=== PATIENT | female | born 1960 | race Hispanic/Latino ===

== ENCOUNTER 2016-06-10 13:55 | Emergency (ER) | payer MEDICARE, MEDICAID ==
[~2016-06-10 13:55] MED LIST: /ADVA50050; /ADVA50050 IN; /ADVA50050 INH; /BACIOPOI; /CIPR75TA OR; /HCTZ25TA PO; /LOR25TA PO; /PANT40TA; ACTOPLUS MET OR; ADV250INH INH; ADVAIR PO; ALBU17IN2 INH; ALDA25TA2 PO; ALLE25CA; ALLE25CA OR; AMBI10TA OR; AMBIEN PO; AMLO10TA OR; AMLO10TA PO; AMLO5TAB2 PO; ANEXSIA PO; ASPI81TA21 PO; ASPI81TA3 OR; ASPI81TAEC PO; ATARAX PO; ATEN100T OR; ATEN100T PO; ATEN50TA2 PO; ATIV1TAB10 PO; ATRO1SOL13; Ambien PO; Amlodipine Besylate PO; BACT800T OR; BACTROBAN TOP; BENA25CA2 PO; BENEDRYL PO; CALC1CAP31 PO; CALC500C16 PO; CATA0.2T PO; CEFT500T OR; CELE100C OR; CELE20TA PO; CELE40TA PO; CLEO150C PO; CLEO300C2 PO; CLIN150C PO; CLON0.2T PO; CLONI1TA PO; CLOTPOW TOP; COLA100C PO; COLA100C2 OR; COUM1TAB17 PO; COZA50TA PO; DARB100SYR IV; DEMA20TA6 PO; DIAZ5TAB OR; DICL13PA TD; DILA2TAB PO; DIOV160T2 PO; DIOV160T5; DIOV80TA OR; DOC-Q-LACE PO; DOCU10ELUD PO; DRIS50002 PO; DULC5TAB PO; FERR325T3 PO; FLAG500T PO; FLEXERIL PO; FLUTISP; FURO1TAB15 PO; GEMF600T OR; GLUC1000; GLUC500T; HUMULIN 70-30; HYDR-4267 PO; HYDR10T PO; HYDR10TAB PO; HYDR2.5C EX; HYDR25TA6 OR; IBUP800T; INSUDET SC; INSUH10VL SC; INSUHUMDS SC; INSULADS SC; INSULANT; INSULANT SC; INSULIN; INSULIN 70/30; Insulin SC; K-LO20PO; K-TA10TA2 PO; KEPP250T5 PO; KLOR1TAB77 PO; LASI80TA PO; LEVAQUIN PO; LEVO50TA5 PO; LIDO5DIS TD; LIDO5DIS36 TD; LIDO5TD TD; LIPI20TA OR; LIPI20TA PO; LISI10TA4 PO; LORT5TAB PO; LOSA100T36 PO; LOSA50TA20 PO; LOTR1CRE TOP; LYRI100C10 PO; LYRI75CA OR; LYRI75CA PO; MAALOX PD; MAG400TA PO; MAGN400C PO; MAGN400T2 PO; MAGN400T5 PO; MAGN500C PO; MAGN500T5 PO; METO25TA2; MICR10CA PO; MILKSUS PO; MONISTAT; MONT10TA2 PO; MORP15TASA PO; MORPHINE IR PO; MS C15TA5 OR; MS C30TA PO; MS CONTIN PO; MSIR PO; MSIR30TA PO; MYCOSTATIN POWDER TOP; NEUR100C PO; NEUR300C OR; NICO14DI20 TD; NICO14DI3 TD; NICO14PA TD; NICO21DI4 TD; NICO21DI5 TD; NICO21PAT TD; NOVO70IN SC; NOVOINJ SC; NOVOINJ2 SC; NOVOLOG100 MG/ML SC; NYST10PW TOP; ONDA1TAB15 PO; OXYC-299 PO; OXYC-517 PO; OXYC10TA12 PO; OXYC10TA56 PO; OXYCO5TA PO; PEPC1TAB2 PO; PERCOCET PO; PLAV75TA2 OR; POTA10CA PO; POTA20TA PO; PREG50CA PO; PRIN10TA PO; REGL10TA6 PO; REGL5TAB2 PO; RENV2TAB PO; RIFA300C3 OR; SENN8.6T5 OR; SENO8.6T10 PO; SIMV20TA2 PO; SING10TA32 PO; SINGULAIR; SINGULAIR OR; SINGULAR; SKEL800T5; SYNT50TA PO; TIZA4CAP3 PO; TOPI50TA; TRAM50TA2 OR; TRAM50TA2 PO; TYLE325T5 PO; TYLE650T30 PO; TYLENOL #3; ULTR50TA PO; ULTRTA OR; VICO5TAB OR; VICODINES TAB OR; VITA100066 PO; VITA50003 PO; VITMTA PO; VOLT1GEL EXT; XANA0.25; XANA0.25 OR; XANA0.5T PO; XARE10TA PO; XARE15TA PO; XARE20TA PO; ZANA2CAP PO; ZEST1TAB9 PO; ZOLO100T OR; ZOLO50TA PO; ZOLP-189 PO; ZOST0.25 EX; [UNRECOGNIZED DRUG - CODE] IV; [UNRECOGNIZED DRUG - OTHER]; anexsia PO; flexeril OR; heparin SC; januvia OR; morphine sulfate IV; norco PO; toradol PO; vancomycin IV; zofran IV
[2016-06-10] MEDS ORDERED: ASPIRIN 81 MG CHEW TABLET As Ordered ONE (14:41)
[2016-06-10 15:08] LABS: BASO # 0.1 K/mm3 (0.0-0.2); BASO % 0.9 % (0.0-1.0); EOS % 0.6 % (0.0-3.0); LARGE UNSTAINED CELL % 0.4 % (0.0-4.0); LYMPH # 0.5 K/mm3 (1.5-4.5); LYMPH % 5.9 % (24.0-44.0); MEAN CORPUSCULAR HEMOGLOBIN 27.2 pg (27.0-33.0); MEAN CORPUSCULAR HGB CONC 32.3 g/dl (32.0-36.5); MEAN CORPUSCULAR VOLUME 84.2 fl (80.0-96.0); MONO # 0.3 K/mm3 (0.0-0.8); MONO % 3.3 % (0.0-5.0); NEUTROPHILS # 7.7 K/mm3 (1.8-7.7); PLATELET COUNT, AUTOMATED 170 k/mm3 (150-450); RED CELL DISTRIBUTION WIDTH 15.5 % (11.5-14.5); WHITE BLOOD COUNT 8.6 K/mm3 (4.0-10.0)
[2016-06-10 15:14] LABS: INR 0.89
[2016-06-10] MEDS ORDERED: oxyCODONE 5MG TAB As Ordered ONE ×2 (15:14→21:54)
--- NOTE | 2016-06-10 15:16 | REP ---
Chest one-view HISTORY: Chest pain Comparison: 05/01/2015 The lungs are clear. The heart is normal in size. The pulmonary vasculature is normal in appearance. Impression: No acute disease. Signed by Agustin Alfaro MD 06/10/2016 03:08 P
[2016-06-10 15:44] LABS: ANION GAP 8 MEQ/L (8-16); BLOOD UREA NITROGEN 13 MG/DL (7-18); CALCIUM LEVEL 9.5 MG/DL (8.5-10.1); CARBON DIOXIDE LEVEL 31 MEQ/L (21-32); CHLORIDE LEVEL 99 MEQ/L (98-107); CREATININE FOR GFR 2.99 MG/DL (0.55-1.02); GLOMERULAR FILTRATION RATE 17.2 (>51); GLUCOSE, FASTING 264 MG/DL (70-105); POTASSIUM SERUM 3.3 MEQ/L (3.5-5.1); SODIUM LEVEL 138 MEQ/L (136-145)
[2016-06-10] MEDS ORDERED: ATENOLOL 25 MG TAB As Ordered ONE (20:38)
[2016-06-10] MEDS ORDERED: cloNIDine 0.2 MG TAB As Ordered ONE (20:38)
--- NOTE | 2016-06-10 23:55 | EDDOCDS ---
Physician Documentation [facility] Name: Tamie Carter Age: 55 yrs Sex: Female : 1960 Arrival Date: 06/10/2016 Time: 13:55 Bed OBSERVATION Private MD: Disposition: 06/10 21:52 Critical Care: Critical care not applicable. le Disposition: 06/10/16 21:44 Discharged to Home/Self Care. Impression: Other chest pain - Low probability acute coronary syndrome or pulmonary embolism, Chronic pain syndrome. - Condition is Stable. - Discharge Instructions: Nonspecific Chest Pain, Chronic Pain. - Medication Reconciliation, Local Pharmacy Hours form. - Follow up: Jean Carlos Maurice; When: Call to arrange an appointment; Reason: Recheck today's complaints, Continuance of care. Follow up: Lizzy Aguilar MD; When: Call to arrange an appointment; Reason: Recheck today's complaints, Continuance of care. - Problem is an acute exacerbation. - Symptoms have improved. - Notes: Use your usual pain medications, previously prescribed, for pain Keep your next scheduled dialysis appointment Return to the ED for any further concerns Historical: - Allergies: ACETAMINOPHEN; Erythromycin; NSAIDS; peanuts; PENICILLINS; Proventil HFA; Morphine; - Home Meds: 1. Advair Diskus 250-50 mcg/dose Inhl dsdv 1 puff 2 times per day 2. aspirin 81 mg Oral tab 1 tab once daily 3. atenolol 50 mg Oral tab 50mg at bedtime on dialysis days. 50mg BID on non dialysis days 4. Bactroban 2 % Topical crea 3 times per day 5. citalopram 40 mg Oral tab 1 tab once daily 6. clonidine HCl 0.2 mg oral tab 3 times per day 7. losartan 100 mg oral tab 1 tab once daily 8. Drisdol 50,000 unit Oral cap 1 cap once wkly 9. insulin lispro 100 unit/mL subcutaneous crtg 16 units nightly 10. levetiracetam 500 mg oral tab 1 tab 2 times per day 11. levothyroxine 50 mcg Oral tab 1 tab once daily 12. pregabalin 75 mg Oral cap 1 cap 2 times per day 13. magnesium oxide 400 mg oral tab twice a day 14. Multiple Vitamins oral tab daily 15. Nicoderm CQ 21 mg/24 hr transdermal pt24 1 patch once daily 16. Zofran (as hydrochloride) 4 mg Oral tab every 6 hours 17. Renvela 800 mg oral tab 1 tab 3 times per day 18. oxycodone 15 mg Oral TR12 0.5 tab every 6 hours 19. senna 8.6 mg oral cap 2 caps BID 20. Sensipar 30 mg oral tab 1 tab once daily 21. simvastatin 20 mg Oral tab 1 tab once daily 22. Singulair 10 mg Oral tab 1 tab once daily 23. Toujeo SoloStar 300 unit/mL (1.5 mL) subcutaneous inpn 50 units at HS - PMHx: Asthma; back pain; Bipolar disorder; CAD; rn chronic brodie renal failure with dialysis; Diabetes - IDDM: uncontrolled; Diabetic Neuropathy; Hypercholesterolemia; Hypertension; Hypothyroidism; Myocardial infarction; PVD; retinopathy; Seizures; - PSHx: muliple toe amputations; Tonsillectomy; ; Cholecystectomy; Angioplasty; femoral stents; transmetatarsal amputation; bypass; toe amputsations left foot; - Family history: Not pertinent. - Social history: Smoking status: Patient uses tobacco products, current every day smoker. No barriers to communication noted, The patient speaks fluent Indonesian, Speaks appropriately for age. - : The pt / caregiver states he / she is not on anticoagulants. Home medication list is obtained from the patient. - Exposure Risk Screening:: None identified. Vital Signs: 14:22 BP 205 / 91 (auto/); lf1 14:22 Pulse 78 MON; lf1 14:26 BP 205 / 91; Pulse 71; Resp 16; Temp 97.7; Pulse Ox 100% on R/A; Weight 84.82 kg / 187 jrd lbs (R); Height 5 ft. 5 in. (165.10 cm) (R); Pain 10/10; 14:33 BP 217 / 93 (auto/); lf1 14:33 Pulse 78 MON; lf1 14:35 BP 168 / 87 RA Supine (auto/reg); Pulse 74; jrd 15:17 BP 192 / 81 (auto/); lf1 15:19 Pulse 82 MON; Resp 16; Pulse Ox 98% ; Pain 10/10; lf1 17:51 BP 170 / 75 (auto/); jo3 17:51 Pulse 78 MON; jo3 19:04 BP 205 / 84 (auto/); nn1 19:04 Pulse 84 MON; nn1 19:04 Resp 18; nn1 19:15 BP 223 / 100 (auto/); nn1 19:15 Pulse 84 MON; Pulse Ox 95% ; nn1 19:53 BP 226 / 102 (auto/); nn1 19:55 Pulse 78 MON; Pulse Ox 96% ; nn1 21:51 Pulse 78; Resp 20; Temp 97.8(TE); radha 23:49 BP 146 / 84 (man/); Pulse 76; Resp 18; Temp 97.6; Pulse Ox 96% on R/A; Pain 10/10; nn1 14:26 Body Mass Index 31.12 (84.82 kg, 165.10 cm) jrd MDM: 14:04 ECG WITH READING ER PHYS+CARDIAG ordered. EDMS 14:35 Aspirin Chewable Tablet 324 mg PO once ordered. le 14:35 Home Energy Consultant/Pulse Ox/q 30 min VS ordered. le 14:35 IV Saline Lock ordered. le 14:35 Rhythm Strip to chart ordered. le 14:35 Undress patient appropriately for examination ordered. le 14:35 B-Type Natiuretic Peptide Ordered. EDMS 14:35 Basic Metabolic Profile Ordered. EDMS 14:35 CBC with Diff Ordered. EDMS 14:35 Cardiac Injury Profile Ordered. EDMS 14:35 D-Dimer Quant Ordered. EDMS 14:35 Partial Thromboplastin Time Ordered. EDMS 14:35 Prothrombin Time Profile\E\INR Ordered. EDMS 14:35 Troponin Ordered. EDMS 14:35 portable chest Ordered. EDMS 14:55 oxyCODONE 5 mg PO once ordered. le 15:46 B-Type Natiuretic Peptide Reviewed. le 15:46 CBC with Diff Reviewed. le 15:46 D-Dimer Quant Reviewed. le 15:46 Partial Thromboplastin Time Reviewed. le 15:46 Prothrombin Time Profile\E\INR Reviewed. le 15:46 portable chest Reviewed. le 16:45 Basic Metabolic Profile Reviewed. le 16:45 Cardiac Injury Profile Reviewed. le 16:45 Troponin Reviewed. le 16:47 Redraw CIP &Troponin (put time in details section) ordered. le 16:47 Repeat EKG (put time details section) ordered. le 16:50 RENAL DIET+DIET ordered. EDMS 17:24 Redraw CIP &Troponin (put time in details section) complete. deg 17:24 Repeat EKG (put time details section) complete. deg 17:25 CARDIAC MARKER PANEL Ordered. EDMS 17:26 ECG WITH READING ER PHYS ordered. EDMS 17:56 [facility] Payment Agreement was scanned into [employer] and attached to record. gjb 17:57 Financial registration complete. gjb 20:28 CARDIAC MARKER PANEL Reviewed. le 20:32 cloNIDine 0.2 mg PO once ordered. le 20:34 Atenolol 100 mg PO once ordered. le 20:45 Misc. Nursing Order ordered. le 21:50 oxyCODONE 5 mg PO once; Give immediately preceding DC ordered. le Administered Medications: 14:55 Drug: Aspirin 324 mg [aspirin 81 mg chewable tablet (4 tabs)] Route: PO; jo3 15:25 Drug: oxyCODONE 5 mg [oxycodone 5 mg tablet (1 tabs)] Route: PO; lf1 20:34 CANCELLED (Other Intervention Used): Atenolol 50 mg PO once le 20:44 Drug: cloNIDine 0.2 mg [clonidine HCl 0.2 mg tablet (1 tabs)] Route: PO; nn1 20:44 Drug: Atenolol 100 mg [atenolol 25 mg tablet (4 tabs)] Route: PO; nn1 23:49 Drug: oxyCODONE 5 mg [oxycodone 5 mg tablet (1 tabs)] Route: PO; nn1 Signatures: Dispatcher [employer] EDSheri Diaz, Business Editor Unit deg Gerri Artis RN RN srm Helmerci, Jennifer, RN RN jo3 Westcott, Lisa, FNP FNP le Nunez, Nikkole, RN RN nn1 Pam Mark Lisa RN lf1 The chart was reviewed and I authenticate all verbal orders and agree with the evaluation and treatment provided.Corrections: (The following items were deleted from the chart) 20:34 20:32 Atenolol 50 mg PO once ordered. le le Attachments: 17:56 [facility] Payment Agreement gjb MTDD
--- NOTE | 2016-06-10 23:55 | EDDOCDS ---
Nurse's Notes [facility] Name: Tamie Carter Age: 55 yrs Sex: Female : 1960 Arrival Date: 06/10/2016 Time: 13:55 Bed OBSERVATION Private MD: Diagnosis: Other chest pain-Low probability acute coronary syndrome or pulmonary embolism;Chronic pain syndrome Presentation: 06/10 14:04 Presenting complaint: Patient states: chest pain started while at renal care (1300) ) srm during dialysis. pain does not radiate. has had a cough. nausea started last night. pain all over her body. Adult Sepsis Screening: The patient does not have new or worsening altered mentation. Patient's respiratory rate is less than 22. Systolic blood pressure is greater than 100. Patient has a qSOFA score of 0- Negative Sepsis Screen. Suicide/Homicide risk assessment- the patient denies having any suicidal and/or homicidal ideations and does not present with any other emotional, behavioral or mental health complaints. Status: Patient is not a rehabilitation services director or dependent. Transition of care: patient was received from renal care. 14:04 Acuity: JOSE ALFREDO Level 2 [facility] 14:04 Method Of Arrival: Ambulance [facility] Triage Assessment: 14:45 General: Appears in no apparent distress, Behavior is cooperative, drowsy. HIV jo3 screening NA for this visit Offered previously. The patient is triaged at the bedside. See Assessment in Nurses Notes section of ED record. Neurological: Level of Consciousness is awake, Oriented to person, place, time. Cardiovascular: Capillary refill is brisk Heart tones S1 S2 Rhythm is sinus rhythm No ectopy. Chest pain When asked about chest pain pt states, "I have pain all over" . Respiratory: Airway is patent Respiratory effort is even, unlabored. Derm: Skin is pink, warm & dry. Historical: - Allergies: ACETAMINOPHEN; Erythromycin; NSAIDS; peanuts; PENICILLINS; Proventil HFA; Morphine; - Home Meds: 1. Advair Diskus 250-50 mcg/dose Inhl dsdv 1 puff 2 times per day 2. aspirin 81 mg Oral tab 1 tab once daily 3. atenolol 50 mg Oral tab 50mg at bedtime on dialysis days. 50mg BID on non dialysis days 4. Bactroban 2 % Topical crea 3 times per day 5. citalopram 40 mg Oral tab 1 tab once daily 6. clonidine HCl 0.2 mg oral tab 3 times per day 7. losartan 100 mg oral tab 1 tab once daily 8. Drisdol 50,000 unit Oral cap 1 cap once wkly 9. insulin lispro 100 unit/mL subcutaneous crtg 16 units nightly 10. levetiracetam 500 mg oral tab 1 tab 2 times per day 11. levothyroxine 50 mcg Oral tab 1 tab once daily 12. pregabalin 75 mg Oral cap 1 cap 2 times per day 13. magnesium oxide 400 mg oral tab twice a day 14. Multiple Vitamins oral tab daily 15. Nicoderm CQ 21 mg/24 hr transdermal pt24 1 patch once daily 16. Zofran (as hydrochloride) 4 mg Oral tab every 6 hours 17. Renvela 800 mg oral tab 1 tab 3 times per day 18. oxycodone 15 mg Oral TR12 0.5 tab every 6 hours 19. senna 8.6 mg oral cap 2 caps BID 20. Sensipar 30 mg oral tab 1 tab once daily 21. simvastatin 20 mg Oral tab 1 tab once daily 22. Singulair 10 mg Oral tab 1 tab once daily 23. 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 - Social history: Smoking status: Patient uses tobacco products, current every day smoker. No barriers to communication noted, The patient speaks fluent Khmer, Speaks appropriately for age. - : The pt / caregiver states he / she is not on anticoagulants. Home medication list is obtained from the patient. - Exposure Risk Screening:: None identified. Screenin:56 Infection Control. deg 23:51 Screening information is obtained from prior medical records. Fall risk: At risk due to nn1 immobility, injury. Fall risk: At risk due to Pain medications . Assistance ADL's: requires no assistance with activities of daily living. Abuse/DV Screen: The patient / caregiver reports he/she is: not in a situation that causes fear, pain or injury. Nutritional screening: No deficits noted. Advance Directives: Currently, there is a health care proxy, Kiara Bernard RN . home support is adequate. Assessment: 15:26 General: Appears obese, Behavior is restless. Pain: Location: "all over" Pain currently lf1 is 10 out of 10 on a pain scale. 16:30 General: Appears in no apparent distress, to be sleeping. Behavior is quiet. jo3 Neurological: No deficits noted. Cardiovascular: No deficits noted. Rhythm is sinus rhythm No ectopy. Respiratory: Airway is patent Respiratory effort is even, unlabored. Derm: Skin is pink, warm & dry. 17:10 Reassessment: Pt appears asleep and comfortable on stretcher . jo3 17:30 Reassessment: Pt daughter in to visit awaking pt. Pt very drowsy on stretcher but jo3 states that her pain is 10/10 in her head. Provider notfied.. 18:05 Reassessment: Patient appears in no apparent distress at this time. Appears asleep on jo3 stretcher at this time. Awaiting results. . 18:20 Reassessment: Continues to sleep on stretcher at this time. Awaiting cardiac marker jo3 labs at 1999. 19:20 Reassessment: Pt awake and screaming in room that she "can't move". Refusing to even jo3 move arms to assist this senior writer and other staff in repositioning her. Asking to speak to provider. Provider notified. No significant changes noted. Rhythm is sinus on monitor. respirations unlabored and regular . 19:59 General: General: Patient calm at this time, patient reports she wants to go home. nn1 Blood drawn for repeat lab work, patient on NIBP monitor due to high blood pressure. . 20:44 General: Patient medicated for high BP. Patient made comfortable, given warm blanket. . nn1 Respiratory: Airway is patent Respiratory effort is even, unlabored, Respiratory pattern is regular, symmetrical. Derm: Skin is pink, warm & dry. 22:30 General: Appears in no apparent distress, Patient awaiting ambulance at this time. nn1 Holding ordered pain medication per providers orders. Patient in no distress at this time, IV discontinued. . 23:53 General: Appears in no apparent distress, Behavior is appropriate for age, cooperative, nn1 Patient medicated for pain prior to discharge.. Neurological: No deficits noted. Respiratory: Airway is patent Respiratory effort is even, unlabored, Respiratory pattern is regular, symmetrical. Derm: Skin is pink, warm & dry. Vital Signs: 14:22 BP 205 / 91 (auto/); lf1 14:22 Pulse 78 MON; lf1 14:26 BP 205 / 91; Pulse 71; Resp 16; Temp 97.7; Pulse Ox 100% on R/A; Weight 84.82 kg (R); jrd Height 5 ft. 5 in. (165.10 cm) (R); Pain 10/10; 14:33 BP 217 / 93 (auto/); lf1 14:33 Pulse 78 MON; lf1 14:35 BP 168 / 87 RA Supine (auto/reg); Pulse 74; jrd 15:17 BP 192 / 81 (auto/); lf1 15:19 Pulse 82 MON; Resp 16; Pulse Ox 98% ; Pain 10/10; lf1 17:51 BP 170 / 75 (auto/); jo3 17:51 Pulse 78 MON; jo3 19:04 BP 205 / 84 (auto/); nn1 19:04 Pulse 84 MON; nn1 19:04 Resp 18; nn1 19:15 BP 223 / 100 (auto/); nn1 19:15 Pulse 84 MON; Pulse Ox 95% ; nn1 19:53 BP 226 / 102 (auto/); nn1 19:55 Pulse 78 MON; Pulse Ox 96% ; nn1 21:51 Pulse 78; Resp 20; Temp 97.8(TE); radha 23:49 BP 146 / 84 (man/); Pulse 76; Resp 18; Temp 97.6; Pulse Ox 96% on R/A; Pain 10/10; nn1 14:26 Body Mass Index 31.12 (84.82 kg, 165.10 cm) [facility] Vitals: 14:45 Log In Time N/A - ambulance arrival. jo3 ED Course: 13:56 Patient visited by Sheri Neal, Floor Tech. deg 13:56 Patient moved to Waiting deg 14:02 Patient moved to [facility] 14:06 Triage Initiated srm 14:08 Tatiana Quinones FNP is PHCP. le 14:13 EKG done. (by ED staff). Reviewed by Tatiana REYNOLDS. jrd 14:24 Patient visited by Tatiana Quinones FNP. le 14:24 Patient visited by Tatiana Quinones FNP. le 14:26 Pt greeted and oriented to ED. Patient advised of names of staff involved in care, jrd location of call ferreira, wait times and NPO status. Patient has correct armband on for positive identification. Placed in gown. Bed in low position. Call light in reach. Side rails up X2. Warm blanket given. quality assurance monitor on. Pulse ox on. NIBP on. 14:27 Patient visited by Moises Lua PCA. jrd 14:35 Patient visited by Moises Lua PCA. jrd 15:27 Patient visited by Tatiana Osman RN. lf1 15:30 portable chest Returned. EDMS 16:21 Patient visited by Erika Serrano PCA. ct3 16:46 Patient moved to OBSERVATION le 17:56 [facility] Payment Agreement was scanned into GIGAS and attached to record. gjb 18:32 Patient visited by Tamika Magaña,CHER. jo3 19:05 Patient visited by Tamika Magaña,CHER. jo3 19:34 Patient visited by Tamika Magaña,CHER. jo3 19:57 CARDIAC MARKER PANEL Sent. nn1 20:08 EKG done. (by ED staff). Reviewed by Tatiana REYNOLDS. jmv 20:09 Patient visited by Guerrero Mckenzie PCA. jmv 21:44 Jean Carlos Maurice is Referral Physician. le 21:50 Lizzy Aguilar MD is Referral Physician. le 21:51 Cleaned of incontinence. Linen changed. radha 22:33 Discontinued IV lock intact, bleeding controlled, pressure dressing applied, No nn1 redness/swelling at site. 20G right ac. 23:52 No procedures done that require assistance. nn1 23:53 The patient / caregiver is instructed regarding the plan of care and ED course. nn1 Administered Medications: 14:55 Drug: Aspirin 324 mg [aspirin 81 mg chewable tablet (4 tabs)] Route: PO; jo3 15:25 Drug: oxyCODONE 5 mg [oxycodone 5 mg tablet (1 tabs)] Route: PO; lf1 20:34 CANCELLED (Other Intervention Used): Atenolol 50 mg PO once le 20:44 Drug: cloNIDine 0.2 mg [clonidine HCl 0.2 mg tablet (1 tabs)] Route: PO; nn1 20:44 Drug: Atenolol 100 mg [atenolol 25 mg tablet (4 tabs)] Route: PO; nn1 23:49 Drug: oxyCODONE 5 mg [oxycodone 5 mg tablet (1 tabs)] Route: PO; nn1 Order Results: Lab Order: B-Type Natiuretic Peptide; SPEC'M 06/10/16 14:55 Test: BRAIN NATRIURETIC PEPTIDE; Value: 365; Range: <100; Abnormal: Above high normal; Units: PG/ML; Status: F Lab Order: Basic Metabolic Profile; SPEC'M 06/10/16 14:55 Test: GLUCOSE, FASTING; Value: 264; Range: 70-105; Abnormal: Above high normal; Units: MG/DL; Status: F Test: BLOOD UREA NITROGEN; Value: 13; Range: 7-18; Units: MG/DL; Status: F Test: CREATININE FOR GFR; Value: 2.99; Range: 0.55-1.02; Abnormal: Above high normal; Units: MG/DL; Status: F Test: GLOMERULAR FILTRATION RATE; Value: 17.2; Range: >51; Abnormal: Below low normal; Status: F Test: SODIUM LEVEL; Value: 138; Range: 136-145; Units: MEQ/L; Status: F Test: POTASSIUM SERUM; Value: 3.3; Range: 3.5-5.1; Abnormal: Below low normal; Units: MEQ/L; Status: F Test: CHLORIDE LEVEL; Value: 99; Range: 98-107; Units: MEQ/L; Status: F Test: CARBON DIOXIDE LEVEL; Value: 31; Range: 21-32; Units: MEQ/L; Status: F Test: ANION GAP; Value: 8; Range: 8-16; Units: MEQ/L; Status: F Test: CALCIUM LEVEL; Value: 9.5; Range: 8.5-10.1; Units: MG/DL; Status: F Test Note: ; Units are mL/min/1.73 m2 Chronic Kidney Disease Staging per NKF: Stage I & II GFR >=60 Normal to Mildly Decreased Stage III GFR 30-59 Moderately Decreased Stage IV GFR 15-29 Severely Decreased Stage V GFR <15 Very Little GFR Left ESRD GFR <15 on CYCLE COUNTER Lab Order: CBC with Diff; SPEC'M 06/10/16 14:55 Test: WHITE BLOOD COUNT; Value: 8.6; Range: 4.0-10.0; Units: K/mm3; Status: F Test: RED BLOOD COUNT; Value: 5.81; Range: 4.00-5.40; Abnormal: Above high normal; Units: M/mm3; Status: F Test: HEMOGLOBIN; Value: 15.8; Range: 12.0-16.0; Units: g/dl; Status: F Test: HEMATOCRIT; Value: 48.9; Range: 36.0-47.0; Abnormal: Above high normal; Units: %; Status: F Test: MEAN CORPUSCULAR VOLUME; Value: 84.2; Range: 80.0-96.0; Units: fl; Status: F Test: MEAN CORPUSCULAR HEMOGLOBIN; Value: 27.2; Range: 27.0-33.0; Units: pg; Status: F Test: MEAN CORPUSCULAR HGB CONC; Value: 32.3; Range: 32.0-36.5; Units: g/dl; Status: F Test: RED CELL DISTRIBUTION WIDTH; Value: 15.5; Range: 11.5-14.5; Abnormal: Above high normal; Units: %; Status: F Test: PLATELET COUNT, AUTOMATED; Value: 170; Range: 150-450; Units: k/mm3; Status: F Test: NEUTROPHILS %; Value: 89.0; Range: 36.0-66.0; Abnormal: Above high normal; Units: %; Status: F Test: LYMPH %; Value: 5.9; Range: 24.0-44.0; Abnormal: Below low normal; Units: %; Status: F Test: MONO %; Value: 3.3; Range: 0.0-5.0; Units: %; Status: F Test: EOS %; Value: 0.6; Range: 0.0-3.0; Units: %; Status: F Test: BASO %; Value: 0.9; Range: 0.0-1.0; Units: %; Status: F Test: LARGE UNSTAINED CELL %; Value: 0.4; Range: 0.0-4.0; Units: %; Status: F Test: NEUTROPHILS #; Value: 7.7; Range: 1.8-7.7; Units: K/mm3; Status: F Test: LYMPH #; Value: 0.5; Range: 1.5-4.5; Abnormal: Below low normal; Units: K/mm3; Status: F Test: MONO #; Value: 0.3; Range: 0.0-0.8; Units: K/mm3; Status: F Test: EOS #; Value: 0.0; Range: 0.0-0.50; Units: K/mm3; Status: F Test: BASO #; Value: 0.1; Range: 0.0-0.2; Units: K/mm3; Status: F Test: LARGE UNSTAINED CELL #; Value: 0.0; Range: 0.0-0.4; Units: K/mm3; Status: F Lab Order: Cardiac Injury Profile; SPEC'M 06/10/16 14:55 Test: CPK CREATINE PHOSPHOKINASE; Value: 31; Range: 26-192; Units: U/L; Status: F Test: CK-MB VALUE MASS; Value: 2.6; Range: 0.0-3.6; Units: NG/ML; Status: F Test: MB/CK RELATIVE INDEX; Value: 8.38; Range: < OR =4; Abnormal: Above high normal; Status: F Test Note: ; DIAGNOSIS CRITERIA MMB ng/ml Relative Index (RI) NON-AMI < or = 5 N/A ANDRE ZONE > 5 < or = 4 AMI > 5 > 4 Lab Order: D-Dimer Quant; SPEC'M 06/10/16 14:55 Test: D-DIMER QUANT; Value: 513.1; Range: <500; Abnormal: Above high normal; Units: ng/ml; Status: F Lab Order: Partial Thromboplastin Time; SPEC'M 06/10/16 14:55 Test: PARTIAL THROMBOPLASTIN TIME; Value: 26.2; Range: 26.6-37.1; Abnormal: Below low normal; Units: SECONDS; Status: F Lab Order: Prothrombin Time Profile\\E\\INR; SPEC'M 06/10/16 14:55 Test: PROTHROMBIN TIME; Value: 12.2; Range: 12.3-14.5; Abnormal: Below low normal; Units: SECONDS; Status: F Test: INR; Value: 0.89; Status: F Test Note: ; THERAPUTIC HUMAN INR VALUES INDICATIONS NORMAL RANGES PROPHYLAXIS/TREATMENT OF: VENOUS THROMBOSIS 2.0-3.0 PULMONARY EMBOLISM 2.0-3.0 PREVENTION OF SYSTEMIC EMBOLISM FROM: TISSUE HEART VALVES 2.0-3.0 ACUTE MYOCARDIAL INFARCTION 2.0-3.0 VALVULAR HEART DISEASE 2.0-3.0 ATRIAL FIBRILLATION 2.0-3.0 MECHANICAL VALVES(HIGH RISK) 2.5-3.5 RECURRENT MYOCARDIAL INFARCTION 2.5-3.5 Lab Order: Troponin; [facility]' 06/10/16 14:55 Test: TROPONIN I; Value: < 0.02; Range: < 0.10; Units: NG/ML; Status: F Test Note: ; Troponin I Reference Interval for Vertishear LOCI: 99th Percentile= 0.00-0.045 ng/ml Risk Stratification: <= 0.10 ng/ml Decreased Risk for Adverse Clinical Events. 0.10-1.50 ng/ml Increased Risk for Adverse Clinical Events. Evaluation of additional criterion and/or repeat testing in 2-6 hours is suggested to rule out myocardial damage. >= 1.50 ng/ml Indicative of Myocardial Injury. Lab Order: CARDIAC MARKER PANEL; [facility]' 06/10/16 19:54 Test: CPK CREATINE PHOSPHOKINASE; Value: 22; Range: 26-192; Abnormal: Below low normal; Units: U/L; Status: F Test: CK-MB VALUE MASS; Value: 1.7; Range: 0.0-3.6; Units: NG/ML; Status: F Test: MB/CK RELATIVE INDEX; Value: 7.72; Range: < OR =4; Abnormal: Above high normal; Status: F Test: TROPONIN I; Value: < 0.02; Range: < 0.10; Units: NG/ML; Status: F Test Note: ; DIAGNOSIS CRITERIA MMB ng/ml Relative Index (RI) NON-AMI < or = 5 N/A ANDRE ZONE > 5 < or = 4 AMI > 5 > 4 Radiology Order: portable chest Test: portable chest REASON FOR EXAMINATION: Chest Pain; Chest one-view; ; HISTORY: Chest pain; ; Comparison: 05/01/2015; ; The lungs are clear. The heart is normal in size. The pulmonary vasculature is; normal in appearance.; ; Impression: No acute disease.; ; ; Signed by; Agustin Alfaro MD 06/10/2016 03:08 P; Outcome: 21:44 Discharge ordered by Provider. le 23:49 Discharge Assessment: Patient awake, alert and oriented x 3. No cognitive and/or nn1 functional deficits noted. Patient verbalized understanding of disposition instructions. patient administered narcotics - yes. Pt provided with safe discharge. The following High Risk Discharge criteria are identified: None. Discharged to home via ambulance. Condition: stable. Property :Personal belongings accompany Pt. 23:50 No special radiology studies were completed. nn1 23:54 Patient left the ED. nn1 Signatures: Dispatcher [employer] EDMS Sheri Neal, Floor Tech Unit deg Gerri Artis, RN CHER [facility] Tamika Magaña RN RN jo3 Ford, Lisa,RN RN lf1 Tatiana Quinones, ORIENTAL MEDICINE PRACTITIONER ORIENTAL MEDICINE PRACTITIONER Tracy Larkin, HEADEND TECHNICIAN HEADEND TECHNICIAN radha Erika Serrano, HEADEND TECHNICIAN HEADEND TECHNICIAN ct3 Moises Lua, HEADEND TECHNICIAN HEADEND TECHNICIAN Nadira Galeano RN RN nn1 Pam Mark Jose, HEADEND TECHNICIAN HEADEND TECHNICIAN jmv Corrections: (The following items were deleted from the chart) 20:03 19:59 General: nn1 nn1 23:50 23:49 BP 146 / 84; Pulse 76bpm; Resp 18bpm; Pulse Ox 96% RA; Temp 97.6F; Pain 10/10; nn1nn1 MTDD
--- NOTE | 2016-06-11 07:25 | ECGEPIP ---
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
--- NOTE | 2016-06-11 07:35 | ECGEPIP ---
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
[2016-06-11] MEDS ORDERED: ADV250INH INH (13:15)
[2016-06-11] MEDS ORDERED: ASPI1TAB PO (13:16)
[2016-06-11] MEDS ORDERED: ATEN50TA2 PO ×2 (13:16→13:17)
[2016-06-11] MEDS ORDERED: CLON0.2T PO ×2 (13:23)
[2016-06-11] MEDS ORDERED: CITA40TA4 PO (13:23)
[2016-06-11] MEDS ORDERED: BENA25CA4 PO (13:23)
[2016-06-11] MEDS ORDERED: INSUHUMDS SC (13:28)
[2016-06-11] MEDS ORDERED: COLA100C PO (13:28)
[2016-06-11] MEDS ORDERED: KEPP500T6 PO (13:28)
[2016-06-11] MEDS ORDERED: MAGN400T5 PO (13:28)
[2016-06-11] MEDS ORDERED: NICODIS TD (13:28)
[2016-06-11] MEDS ORDERED: LEVO50TA45 PO (13:28)
[2016-06-11] MEDS ORDERED: VITMTA PO (13:28)
[2016-06-11] MEDS ORDERED: TIZA4CAP3 PO (13:33)
[2016-06-11] MEDS ORDERED: XANA0.5T PO (13:33)
[2016-06-11] MEDS ORDERED: TOUJ1.2I SC (13:33)
[2016-06-11] MEDS ORDERED: SING10TA32 PO (13:33)
[2016-06-11] MEDS ORDERED: OXYC15TA76 PO (13:33)
[2016-06-11] MEDS ORDERED: LYRI75CA PO (13:33)
[2016-06-11] MEDS ORDERED: SIMV20TA2 PO (13:33)
[2016-06-11] MEDS ORDERED: CINA30TA PO (13:33)
[2016-06-11] MEDS ORDERED: RENV2TAB PO (13:33)
--- NOTE | 2016-06-13 00:56 | EDDOCDS ---
Nurse's Notes [facility] Name: Rajni Carter Age: 55 yrs Sex: Female : 1960 Arrival Date: 06/10/2016 Time: 13:55 Bed OBSERVATION Private MD: Diagnosis: Other chest pain-Low probability acute coronary syndrome or pulmonary embolism;Chronic pain syndrome Presentation: 06/10 14:04 Presenting complaint: Patient states: chest pain started while at renal care (1300) ) srm during dialysis. pain does not radiate. has had a cough. nausea started last night. pain all over her body. Adult Sepsis Screening: The patient does not have new or worsening altered mentation. Patient's respiratory rate is less than 22. Systolic blood pressure is greater than 100. Patient has a qSOFA score of 0- Negative Sepsis Screen. Suicide/Homicide risk assessment- the patient denies having any suicidal and/or homicidal ideations and does not present with any other emotional, behavioral or mental health complaints. 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 Transition of care: patient was received from renal care. 14:04 Acuity: JOSE ALFREDO Level 2 [facility] 14:04 Method Of Arrival: Ambulance [facility] Triage Assessment: 14:45 General: Appears in no apparent distress, Behavior is cooperative, drowsy. HIV jo3 screening NA for this visit Offered previously. The patient is triaged at the bedside. See Assessment in Nurses Notes section of ED record. Neurological: Level of Consciousness is awake, Oriented to person, place, time. Cardiovascular: Capillary refill is brisk Heart tones S1 S2 Rhythm is sinus rhythm No ectopy. Chest pain When asked about chest pain pt states, "I have pain all over" . Respiratory: Airway is patent Respiratory effort is even, unlabored. Derm: Skin is pink, warm & dry. Historical: - Allergies: ACETAMINOPHEN; Erythromycin; NSAIDS; peanuts; PENICILLINS; Proventil HFA; Morphine; - Home Meds: 1. Advair Diskus 250-50 mcg/dose Inhl dsdv 1 puff 2 times per day 2. aspirin 81 mg Oral tab 1 tab once daily 3. atenolol 50 mg Oral tab 50mg at bedtime on dialysis days. 50mg BID on non dialysis days 4. Bactroban 2 % Topical crea 3 times per day 5. citalopram 40 mg Oral tab 1 tab once daily 6. clonidine HCl 0.2 mg oral tab 3 times per day 7. losartan 100 mg oral tab 1 tab once daily 8. Drisdol 50,000 unit Oral cap 1 cap once wkly 9. insulin lispro 100 unit/mL subcutaneous crtg 16 units nightly 10. levetiracetam 500 mg oral tab 1 tab 2 times per day 11. levothyroxine 50 mcg Oral tab 1 tab once daily 12. pregabalin 75 mg Oral cap 1 cap 2 times per day 13. magnesium oxide 400 mg oral tab twice a day 14. Multiple Vitamins oral tab daily 15. Nicoderm CQ 21 mg/24 hr transdermal pt24 1 patch once daily 16. Zofran (as hydrochloride) 4 mg Oral tab every 6 hours 17. Renvela 800 mg oral tab 1 tab 3 times per day 18. oxycodone 15 mg Oral TR12 0.5 tab every 6 hours 19. senna 8.6 mg oral cap 2 caps BID 20. Sensipar 30 mg oral tab 1 tab once daily 21. simvastatin 20 mg Oral tab 1 tab once daily 22. Singulair 10 mg Oral tab 1 tab once daily 23. Toujeo SoloStar 300 unit/mL (1.5 mL) subcutaneous inpn 50 units at HS - PMHx: Asthma; back pain; Bipolar disorder; CAD; buffer chrome brodie renal failure with dialysis; Diabetes - IDDM: uncontrolled; Diabetic Neuropathy; Hypercholesterolemia; Hypertension; Hypothyroidism; Myocardial infarction; PVD; retinopathy; Seizures; - PSHx: muliple toe amputations; Tonsillectomy; ; Cholecystectomy; Angioplasty; femoral stents; transmetatarsal amputation; bypass; toe amputsations left foot; - Family history: Not pertinent. - Social history: Smoking status: Patient uses tobacco products, current every day smoker. No barriers to communication noted, The patient speaks fluent German, Speaks appropriately for age. - : The pt / caregiver states he / she is not on anticoagulants. Home medication list is obtained from the patient. - Exposure Risk Screening:: None identified. Screenin:56 Infection Control. deg 23:51 Screening information is obtained from prior medical records. Fall risk: At risk due to nn1 immobility, injury. Fall risk: At risk due to Pain medications . Assistance ADL's: requires no assistance with activities of daily living. Abuse/DV Screen: The patient / caregiver reports he/she is: not in a situation that causes fear, pain or injury. Nutritional screening: No deficits noted. Advance Directives: Currently, there is a health care proxy, Kiara Bernard RN . home support is adequate. Assessment: 15:26 General: Appears obese, Behavior is restless. Pain: Location: "all over" Pain currently lf1 is 10 out of 10 on a pain scale. 16:30 General: Appears in no apparent distress, to be sleeping. Behavior is quiet. jo3 Neurological: No deficits noted. Cardiovascular: No deficits noted. Rhythm is sinus rhythm No ectopy. Respiratory: Airway is patent Respiratory effort is even, unlabored. Derm: Skin is pink, warm & dry. 17:10 Reassessment: Pt appears asleep and comfortable on stretcher . jo3 17:30 Reassessment: Pt daughter in to visit awaking pt. Pt very drowsy on stretcher but jo3 states that her pain is 10/10 in her head. Provider notfied.. 18:05 Reassessment: Patient appears in no apparent distress at this time. Appears asleep on jo3 stretcher at this time. Awaiting results. . 18:20 Reassessment: Continues to sleep on stretcher at this time. Awaiting cardiac marker jo3 labs at 1999. 19:20 Reassessment: Pt awake and screaming in room that she "can't move". Refusing to even jo3 move arms to assist this loan underwriter and other staff in repositioning her. Asking to speak to provider. Provider notified. No significant changes noted. Rhythm is sinus on monitor. respirations unlabored and regular . 19:59 General: General: Patient calm at this time, patient reports she wants to go home. nn1 Blood drawn for repeat lab work, patient on NIBP monitor due to high blood pressure. . 20:44 General: Patient medicated for high BP. Patient made comfortable, given warm blanket. . nn1 Respiratory: Airway is patent Respiratory effort is even, unlabored, Respiratory pattern is regular, symmetrical. Derm: Skin is pink, warm & dry. 22:30 General: Appears in no apparent distress, Patient awaiting ambulance at this time. nn1 Holding ordered pain medication per providers orders. Patient in no distress at this time, IV discontinued. . 23:53 General: Appears in no apparent distress, Behavior is appropriate for age, cooperative, nn1 Patient medicated for pain prior to discharge.. Neurological: No deficits noted. Respiratory: Airway is patent Respiratory effort is even, unlabored, Respiratory pattern is regular, symmetrical. Derm: Skin is pink, warm & dry. Vital Signs: 14:22 BP 205 / 91 (auto/); lf1 14:22 Pulse 78 MON; lf1 14:26 BP 205 / 91; Pulse 71; Resp 16; Temp 97.7; Pulse Ox 100% on R/A; Weight 84.82 kg (R); jrd Height 5 ft. 5 in. (165.10 cm) (R); Pain 10/10; 14:33 BP 217 / 93 (auto/); lf1 14:33 Pulse 78 MON; lf1 14:35 BP 168 / 87 RA Supine (auto/reg); Pulse 74; jrd 15:17 BP 192 / 81 (auto/); lf1 15:19 Pulse 82 MON; Resp 16; Pulse Ox 98% ; Pain 10/10; lf1 17:51 BP 170 / 75 (auto/); jo3 17:51 Pulse 78 MON; jo3 19:04 BP 205 / 84 (auto/); nn1 19:04 Pulse 84 MON; nn1 19:04 Resp 18; nn1 19:15 BP 223 / 100 (auto/); nn1 19:15 Pulse 84 MON; Pulse Ox 95% ; nn1 19:53 BP 226 / 102 (auto/); nn1 19:55 Pulse 78 MON; Pulse Ox 96% ; nn1 21:51 Pulse 78; Resp 20; Temp 97.8(TE); radha 23:49 BP 146 / 84 (man/); Pulse 76; Resp 18; Temp 97.6; Pulse Ox 96% on R/A; Pain 10/10; nn1 14:26 Body Mass Index 31.12 (84.82 kg, 165.10 cm) [facility] Vitals: 14:45 Log In Time N/A - ambulance arrival. jo3 ED Course: 13:56 Patient visited by Sheri Neal, Nurse'S Assistant. deg 13:56 Patient moved to Waiting deg 14:02 Patient moved to [facility] 14:06 Triage Initiated srm 14:08 Tatiana Quinones FNP is PHCP. le 14:13 EKG done. (by ED staff). Reviewed by Tatiana REYNOLDS. jrd 14:24 Patient visited by Tatiana Quinones FNP. le 14:24 Patient visited by Tatiana Quinones FNP. le 14:26 Pt greeted and oriented to ED. Patient advised of names of staff involved in care, jrd location of call ferreira, wait times and NPO status. Patient has correct armband on for positive identification. Placed in gown. Bed in low position. Call light in reach. Side rails up X2. Warm blanket given. monitoring specialist on. Pulse ox on. NIBP on. 14:27 Patient visited by Moises Lua PCA. jrd 14:35 Patient visited by Moises Lua PCA. jrd 15:27 Patient visited by Tatiana Osman,CHER. lf1 15:30 portable chest Returned. EDMS 16:21 Patient visited by Erika Serrano PCA. ct3 16:46 Patient moved to OBSERVATION le 17:56 [facility] Payment Agreement was scanned into [employer] and attached to record. gjb 18:32 Patient visited by Tamika Magaña,CHER. jo3 19:05 Patient visited by Tamika Magaña,CHER. jo3 19:34 Patient visited by Tamika Magaña,CHER. jo3 19:57 CARDIAC MARKER PANEL Sent. nn1 20:08 EKG done. (by ED staff). Reviewed by Tatiana REYNOLDS. jmv 20:09 Patient visited by Guerrero Mckenzie PCA. jmv 21:44 Jean Carlos Maurice is Referral Physician. le 21:50 Lizzy Aguilar MD is Referral Physician. le 21:51 Cleaned of incontinence. Linen changed. radha 22:33 Discontinued IV lock intact, bleeding controlled, pressure dressing applied, No nn1 redness/swelling at site. 20G right ac. 23:52 No procedures done that require assistance. nn1 23:53 The patient / caregiver is instructed regarding the plan of care and ED course. nn1 06/11 07:52 EKG-ADULT Returned. EDMS 07:53 ECG WITH READING ER PHYS Returned. EDMS 10:52 T-Sheet-- Draft Copy was scanned into [employer] and attached to record. gb 10:52 ECG/EKG was scanned into [employer] and attached to record. gb 10:53 Trend VS was scanned into [employer] and attached to record. gb Administered Medications: 06/10 14:55 Drug: Aspirin 324 mg [aspirin 81 mg chewable tablet (4 tabs)] Route: PO; jo3 15:25 Drug: oxyCODONE 5 mg [oxycodone 5 mg tablet (1 tabs)] Route: PO; lf1 20:34 CANCELLED (Other Intervention Used): Atenolol 50 mg PO once le 20:44 Drug: cloNIDine 0.2 mg [clonidine HCl 0.2 mg tablet (1 tabs)] Route: PO; nn1 20:44 Drug: Atenolol 100 mg [atenolol 25 mg tablet (4 tabs)] Route: PO; nn1 23:49 Drug: oxyCODONE 5 mg [oxycodone 5 mg tablet (1 tabs)] Route: PO; nn1 Attachments: 10:53 Trend VS gb Order Results: Lab Order: B-Type Natiuretic Peptide; SPEC'M 06/10/16 14:55 Test: BRAIN NATRIURETIC PEPTIDE; Value: 365; Range: <100; Abnormal: Above high normal; Units: PG/ML; Status: F Lab Order: Basic Metabolic Profile; SPEC'M 06/10/16 14:55 Test: GLUCOSE, FASTING; Value: 264; Range: 70-105; Abnormal: Above high normal; Units: MG/DL; Status: F Test: BLOOD UREA NITROGEN; Value: 13; Range: 7-18; Units: MG/DL; Status: F Test: CREATININE FOR GFR; Value: 2.99; Range: 0.55-1.02; Abnormal: Above high normal; Units: MG/DL; Status: F Test: GLOMERULAR FILTRATION RATE; Value: 17.2; Range: >51; Abnormal: Below low normal; Status: F Test: SODIUM LEVEL; Value: 138; Range: 136-145; Units: MEQ/L; Status: F Test: POTASSIUM SERUM; Value: 3.3; Range: 3.5-5.1; Abnormal: Below low normal; Units: MEQ/L; Status: F Test: CHLORIDE LEVEL; Value: 99; Range: 98-107; Units: MEQ/L; Status: F Test: CARBON DIOXIDE LEVEL; Value: 31; Range: 21-32; Units: MEQ/L; Status: F Test: ANION GAP; Value: 8; Range: 8-16; Units: MEQ/L; Status: F Test: CALCIUM LEVEL; Value: 9.5; Range: 8.5-10.1; Units: MG/DL; Status: F Test Note: ; Units are mL/min/1.73 m2 Chronic Kidney Disease Staging per NKF: Stage I & II GFR >=60 Normal to Mildly Decreased Stage III GFR 30-59 Moderately Decreased Stage IV GFR 15-29 Severely Decreased Stage V GFR <15 Very Little GFR Left ESRD GFR <15 on RECOVERER Lab Order: CBC with Diff; SPEC'M 06/10/16 14:55 Test: WHITE BLOOD COUNT; Value: 8.6; Range: 4.0-10.0; Units: K/mm3; Status: F Test: RED BLOOD COUNT; Value: 5.81; Range: 4.00-5.40; Abnormal: Above high normal; Units: M/mm3; Status: F Test: HEMOGLOBIN; Value: 15.8; Range: 12.0-16.0; Units: g/dl; Status: F Test: HEMATOCRIT; Value: 48.9; Range: 36.0-47.0; Abnormal: Above high normal; Units: %; Status: F Test: MEAN CORPUSCULAR VOLUME; Value: 84.2; Range: 80.0-96.0; Units: fl; Status: F Test: MEAN CORPUSCULAR HEMOGLOBIN; Value: 27.2; Range: 27.0-33.0; Units: pg; Status: F Test: MEAN CORPUSCULAR HGB CONC; Value: 32.3; Range: 32.0-36.5; Units: g/dl; Status: F Test: RED CELL DISTRIBUTION WIDTH; Value: 15.5; Range: 11.5-14.5; Abnormal: Above high normal; Units: %; Status: F Test: PLATELET COUNT, AUTOMATED; Value: 170; Range: 150-450; Units: k/mm3; Status: F Test: NEUTROPHILS %; Value: 89.0; Range: 36.0-66.0; Abnormal: Above high normal; Units: %; Status: F Test: LYMPH %; Value: 5.9; Range: 24.0-44.0; Abnormal: Below low normal; Units: %; Status: F Test: MONO %; Value: 3.3; Range: 0.0-5.0; Units: %; Status: F Test: EOS %; Value: 0.6; Range: 0.0-3.0; Units: %; Status: F Test: BASO %; Value: 0.9; Range: 0.0-1.0; Units: %; Status: F Test: LARGE UNSTAINED CELL %; Value: 0.4; Range: 0.0-4.0; Units: %; Status: F Test: NEUTROPHILS #; Value: 7.7; Range: 1.8-7.7; Units: K/mm3; Status: F Test: LYMPH #; Value: 0.5; Range: 1.5-4.5; Abnormal: Below low normal; Units: K/mm3; Status: F Test: MONO #; Value: 0.3; Range: 0.0-0.8; Units: K/mm3; Status: F Test: EOS #; Value: 0.0; Range: 0.0-0.50; Units: K/mm3; Status: F Test: BASO #; Value: 0.1; Range: 0.0-0.2; Units: K/mm3; Status: F Test: LARGE UNSTAINED CELL #; Value: 0.0; Range: 0.0-0.4; Units: K/mm3; Status: F Lab Order: Cardiac Injury Profile; SPEC'M 06/10/16 14:55 Test: CPK CREATINE PHOSPHOKINASE; Value: 31; Range: 26-192; Units: U/L; Status: F Test: CK-MB VALUE MASS; Value: 2.6; Range: 0.0-3.6; Units: NG/ML; Status: F Test: MB/CK RELATIVE INDEX; Value: 8.38; Range: < OR =4; Abnormal: Above high normal; Status: F Test Note: ; DIAGNOSIS CRITERIA MMB ng/ml Relative Index (RI) NON-AMI < or = 5 N/A ANDRE ZONE > 5 < or = 4 AMI > 5 > 4 Lab Order: D-Dimer Quant; SPEC'M 06/10/16 14:55 Test: D-DIMER QUANT; Value: 513.1; Range: <500; Abnormal: Above high normal; Units: ng/ml; Status: F Lab Order: Partial Thromboplastin Time; [facility] 06/10/16 14:55 Test: PARTIAL THROMBOPLASTIN TIME; Value: 26.2; Range: 26.6-37.1; Abnormal: Below low normal; Units: SECONDS; Status: F Lab Order: Prothrombin Time Profile\\E\\INR; [facility] 06/10/16 14:55 Test: PROTHROMBIN TIME; Value: 12.2; Range: 12.3-14.5; Abnormal: Below low normal; Units: SECONDS; Status: F Test: INR; Value: 0.89; Status: F Test Note: ; THERAPUTIC HUMAN INR VALUES INDICATIONS NORMAL RANGES PROPHYLAXIS/TREATMENT OF: VENOUS THROMBOSIS 2.0-3.0 PULMONARY EMBOLISM 2.0-3.0 PREVENTION OF SYSTEMIC EMBOLISM FROM: TISSUE HEART VALVES 2.0-3.0 ACUTE MYOCARDIAL INFARCTION 2.0-3.0 VALVULAR HEART DISEASE 2.0-3.0 ATRIAL FIBRILLATION 2.0-3.0 MECHANICAL VALVES(HIGH RISK) 2.5-3.5 RECURRENT MYOCARDIAL INFARCTION 2.5-3.5 Lab Order: Troponin; [facility] 06/10/16 14:55 Test: TROPONIN I; Value: < 0.02; Range: < 0.10; Units: NG/ML; Status: F Test Note: ; Troponin I Reference Interval for [employer] LOCI: 99th Percentile= 0.00-0.045 ng/ml Risk Stratification: <= 0.10 ng/ml Decreased Risk for Adverse Clinical Events. 0.10-1.50 ng/ml Increased Risk for Adverse Clinical Events. Evaluation of additional criterion and/or repeat testing in 2-6 hours is suggested to rule out myocardial damage. >= 1.50 ng/ml Indicative of Myocardial Injury. Lab Order: CARDIAC MARKER PANEL; [facility] 06/10/16 19:54 Test: CPK CREATINE PHOSPHOKINASE; Value: 22; Range: 26-192; Abnormal: Below low normal; Units: U/L; Status: F Test: CK-MB VALUE MASS; Value: 1.7; Range: 0.0-3.6; Units: NG/ML; Status: F Test: MB/CK RELATIVE INDEX; Value: 7.72; Range: < OR =4; Abnormal: Above high normal; Status: F Test: TROPONIN I; Value: < 0.02; Range: < 0.10; Units: NG/ML; Status: F Test Note: ; DIAGNOSIS CRITERIA MMB ng/ml Relative Index (RI) NON-AMI < or = 5 N/A ANDRE ZONE > 5 < or = 4 AMI > 5 > 4 Radiology Order: EKG-ADULT Test: EKG-ADULT REASON FOR EXAMINATION: Chest Pain; Stationary ECG Study; [facility] ED; ; Test Date: 2016-06-10; Pat Name: RAJNI CARTER Department:; Room: -; Gender: F 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 Employment Case Manager: moose; : 1960 Requested By: Claudia Faustin; Order Number: [id number] Reading MD: Claudia Faustin; Measurements; Intervals [place]; Rate: 87 P: 56; VT: 153 QRS: 37; QRSD: 97 T: 47; QT: 429; QTc: 517; Interpretive Statements; SINUS RHYTHM WITH FREQUENT SUPRAVENTRICULAR PREMATURE COMPLEXES; PROLONGED QT INTERVAL; NSTTW ABNORMALITY; INCREASE DECTOPY/QTC COMPARED 07/14/15; Electronically Signed On 06-11-2016 7:25:26 EST by Claudia Faustin; Radiology Order: portable chest Test: portable chest REASON FOR EXAMINATION: Chest Pain; Chest one-view; ; HISTORY: Chest pain; ; Comparison: 05/01/2015; ; The lungs are clear. The heart is normal in size. The pulmonary vasculature is; normal in appearance.; ; Impression: No acute disease.; ; ; Signed by; Agustin Alfaro MD 06/10/2016 03:08 P; Radiology Order: ECG WITH READING ER PHYS Test: ECG WITH READING ER PHYS REASON FOR EXAMINATION: CHEST PAIN; Stationary ECG Study; [facility] ED; ; Test Date: 2016-06-10; Pat Name: RAJNI CARTER Department:; Room: -; Gender: F Supportive Employment Case Manager: oly; : 1960 Requested By: TATAINA REYNOLDS; Order Number: [id number] Reading MD: Claudia Faustin; Measurements; Intervals [place]; Rate: 76 P: 50; VT: 159 QRS: 43; QRSD: 96 T: 64; QT: 415; QTc: 468; Interpretive Statements; SINUS RHYTHM; POSSIBLE LEFT VENTRICULAR HYPERTROPHY; NONSPECIFIC T-WAVE ABNORMALITY; DECREASED RATE/ECTOPY/QTC COMPARED 06/10/16 14:07; Electronically Signed On 06-11-2016 7:34:39 EST by Claudia Faustin; Outcome: 06/10 21:44 Discharge ordered by Provider. le 23:49 Discharge Assessment: Patient awake, alert and oriented x 3. No cognitive and/or nn1 functional deficits noted. Patient verbalized understanding of disposition instructions. patient administered narcotics - yes. Pt provided with safe discharge. The following High Risk Discharge criteria are identified: None. Discharged to home via ambulance. Condition: stable. Property :Personal belongings accompany Pt. 23:50 No special radiology studies were completed. nn1 23:54 Patient left the ED. nn1 Signatures: Dispatcher [employer] EDMS Sheri Neal, Nurse'S Assistant Unit deg Gerri Artis, RN RN srm Nathalie Cain, Reg Reg gb Tamika MagañaRN Tatiana Britton,RN RN lf1 Tatiana Quinones, PRODUCTION SHIFT SUPERVISOR PRODUCTION SHIFT SUPERVISOR Tracy Larkin, ORDER ENTRY ORDER ENTRY radha Erika Serrano, ORDER ENTRY ORDER ENTRY ct3 Moises Lua, ORDER ENTRY ORDER ENTRY Nadira Galeano RN RN nn1 Pam Mark Jose, ORDER ENTRY ORDER ENTRY jmv Corrections: (The following items were deleted from the chart) 20:03 19:59 General: nn1 nn1 23:50 23:49 BP 146 / 84; Pulse 76bpm; Resp 18bpm; Pulse Ox 96% RA; Temp 97.6F; Pain 10/10; nn1nn1 Chart Complete MTDD
--- NOTE | 2016-06-13 00:56 | EDDOCDS ---
Physician Documentation [facility] Name: Tamie Carter Age: 55 yrs Sex: Female : 1960 Arrival Date: 06/10/2016 Time: 13:55 Bed OBSERVATION Private MD: Disposition: 06/10 21:52 Critical Care: Critical care not applicable. le Disposition: 06/10/16 21:44 Discharged to Home/Self Care. Impression: Other chest pain - Low probability acute coronary syndrome or pulmonary embolism, Chronic pain syndrome. - Condition is Stable. - Discharge Instructions: Nonspecific Chest Pain, Chronic Pain. - Medication Reconciliation, Local Pharmacy Hours form. - Follow up: Jean Carlos Maurice; When: Call to arrange an appointment; Reason: Recheck today's complaints, Continuance of care. Follow up: Lizzy Aguilar MD; When: Call to arrange an appointment; Reason: Recheck today's complaints, Continuance of care. - Problem is an acute exacerbation. - Symptoms have improved. - Notes: Use your usual pain medications, previously prescribed, for pain Keep your next scheduled dialysis appointment Return to the ED for any further concerns Historical: - Allergies: ACETAMINOPHEN; Erythromycin; NSAIDS; peanuts; PENICILLINS; Proventil HFA; Morphine; - Home Meds: 1. Advair Diskus 250-50 mcg/dose Inhl dsdv 1 puff 2 times per day 2. aspirin 81 mg Oral tab 1 tab once daily 3. atenolol 50 mg Oral tab 50mg at bedtime on dialysis days. 50mg BID on non dialysis days 4. Bactroban 2 % Topical crea 3 times per day 5. citalopram 40 mg Oral tab 1 tab once daily 6. clonidine HCl 0.2 mg oral tab 3 times per day 7. losartan 100 mg oral tab 1 tab once daily 8. Drisdol 50,000 unit Oral cap 1 cap once wkly 9. insulin lispro 100 unit/mL subcutaneous crtg 16 units nightly 10. levetiracetam 500 mg oral tab 1 tab 2 times per day 11. levothyroxine 50 mcg Oral tab 1 tab once daily 12. pregabalin 75 mg Oral cap 1 cap 2 times per day 13. magnesium oxide 400 mg oral tab twice a day 14. Multiple Vitamins oral tab daily 15. Nicoderm CQ 21 mg/24 hr transdermal pt24 1 patch once daily 16. Zofran (as hydrochloride) 4 mg Oral tab every 6 hours 17. Renvela 800 mg oral tab 1 tab 3 times per day 18. oxycodone 15 mg Oral TR12 0.5 tab every 6 hours 19. senna 8.6 mg oral cap 2 caps BID 20. Sensipar 30 mg oral tab 1 tab once daily 21. simvastatin 20 mg Oral tab 1 tab once daily 22. Singulair 10 mg Oral tab 1 tab once daily 23. 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 - Social history: Smoking status: Patient uses tobacco products, current every day smoker. No barriers to communication noted, The patient speaks fluent Martiniquais, Speaks appropriately for age. - : The pt / caregiver states he / she is not on anticoagulants. Home medication list is obtained from the patient. - Exposure Risk Screening:: None identified. Vital Signs: 14:22 BP 205 / 91 (auto/); lf1 14:22 Pulse 78 MON; lf1 14:26 BP 205 / 91; Pulse 71; Resp 16; Temp 97.7; Pulse Ox 100% on R/A; Weight 84.82 kg / 187 jrd lbs (R); Height 5 ft. 5 in. (165.10 cm) (R); Pain 10/10; 14:33 BP 217 / 93 (auto/); lf1 14:33 Pulse 78 MON; lf1 14:35 BP 168 / 87 RA Supine (auto/reg); Pulse 74; jrd 15:17 BP 192 / 81 (auto/); lf1 15:19 Pulse 82 MON; Resp 16; Pulse Ox 98% ; Pain 10/10; lf1 17:51 BP 170 / 75 (auto/); jo3 17:51 Pulse 78 MON; jo3 19:04 BP 205 / 84 (auto/); nn1 19:04 Pulse 84 MON; nn1 19:04 Resp 18; nn1 19:15 BP 223 / 100 (auto/); nn1 19:15 Pulse 84 MON; Pulse Ox 95% ; nn1 19:53 BP 226 / 102 (auto/); nn1 19:55 Pulse 78 MON; Pulse Ox 96% ; nn1 21:51 Pulse 78; Resp 20; Temp 97.8(TE); radha 23:49 BP 146 / 84 (man/); Pulse 76; Resp 18; Temp 97.6; Pulse Ox 96% on R/A; Pain 10/10; nn1 14:26 Body Mass Index 31.12 (84.82 kg, 165.10 cm) jrd MDM: 14:04 ECG WITH READING ER PHYS+CARDIAG ordered. EDMS 14:35 Aspirin Chewable Tablet 324 mg PO once ordered. le 14:35 Air Traffic Control Operator/Pulse Ox/q 30 min VS ordered. le 14:35 IV Saline Lock ordered. le 14:35 Rhythm Strip to chart ordered. le 14:35 Undress patient appropriately for examination ordered. le 14:35 B-Type Natiuretic Peptide Ordered. EDMS 14:35 Basic Metabolic Profile Ordered. EDMS 14:35 CBC with Diff Ordered. EDMS 14:35 Cardiac Injury Profile Ordered. EDMS 14:35 D-Dimer Quant Ordered. EDMS 14:35 Partial Thromboplastin Time Ordered. EDMS 14:35 Prothrombin Time Profile\E\INR Ordered. EDMS 14:35 Troponin Ordered. EDMS 14:35 portable chest Ordered. EDMS 14:55 oxyCODONE 5 mg PO once ordered. le 15:46 B-Type Natiuretic Peptide Reviewed. le 15:46 CBC with Diff Reviewed. le 15:46 D-Dimer Quant Reviewed. le 15:46 Partial Thromboplastin Time Reviewed. le 15:46 Prothrombin Time Profile\E\INR Reviewed. le 15:46 portable chest Reviewed. le 16:45 Basic Metabolic Profile Reviewed. le 16:45 Cardiac Injury Profile Reviewed. le 16:45 Troponin Reviewed. le 16:47 Redraw CIP &Troponin (put time in details section) ordered. le 16:47 Repeat EKG (put time details section) ordered. le 16:50 RENAL DIET+DIET ordered. EDMS 17:24 Redraw CIP &Troponin (put time in details section) complete. deg 17:24 Repeat EKG (put time details section) complete. deg 17:25 CARDIAC MARKER PANEL Ordered. EDMS 17:26 ECG WITH READING ER PHYS ordered. EDMS 17:56 [facility] Payment Agreement was scanned into [employer] and attached to record. gjb 17:57 Financial registration complete. gjb 20:28 CARDIAC MARKER PANEL Reviewed. le 20:32 cloNIDine 0.2 mg PO once ordered. le 20:34 Atenolol 100 mg PO once ordered. le 20:45 Misc. Nursing Order ordered. le 21:50 oxyCODONE 5 mg PO once; Give immediately preceding DC ordered. le 06/11 10:52 T-Sheet-- Draft Copy was scanned into [employer] and attached to record. gb 10:52 ECG/EKG was scanned into [employer] and attached to record. gb 10:53 Trend VS was scanned into [employer] and attached to record. gb Administered Medications: 06/10 14:55 Drug: Aspirin 324 mg [aspirin 81 mg chewable tablet (4 tabs)] Route: PO; jo3 15:25 Drug: oxyCODONE 5 mg [oxycodone 5 mg tablet (1 tabs)] Route: PO; lf1 20:34 CANCELLED (Other Intervention Used): Atenolol 50 mg PO once le 20:44 Drug: cloNIDine 0.2 mg [clonidine HCl 0.2 mg tablet (1 tabs)] Route: PO; nn1 20:44 Drug: Atenolol 100 mg [atenolol 25 mg tablet (4 tabs)] Route: PO; nn1 23:49 Drug: oxyCODONE 5 mg [oxycodone 5 mg tablet (1 tabs)] Route: PO; nn1 Signatures: Dispatcher [employer] EDMS Sheri Neal, Inventory Technician Unit deg Gerri Artis RN Nathalie Rebolledo, Reg Reg Tamika Quinn RN RN jo3 Westcott, Lisa, TELEVISION NEWS PRODUCER Nadira Lopez RN RN nn1 Pam Mark Lisa RN lf1 The chart was reviewed and I authenticate all verbal orders and agree with the evaluation and treatment provided.Corrections: (The following items were deleted from the chart) 20:34 20:32 Atenolol 50 mg PO once ordered. gael mayo Attachments: 17:56 [facility] Payment Agreement gjb 06/11 10:52 T-Sheet-- Draft Copy gb 10:52 ECG/EKG gb Chart Complete MTDD
--- NOTE | 2016-06-13 00:56 | EDDOCDS ---
Physician Documentation [facility] Name: Tamie Carter Age: 55 yrs Sex: Female : 1960 Arrival Date: 06/10/2016 Time: 13:55 Bed OBSERVATION Private MD: Disposition: 06/10 21:52 Critical Care: Critical care not applicable. le Disposition: 06/10/16 21:44 Discharged to Home/Self Care. Impression: Other chest pain - Low probability acute coronary syndrome or pulmonary embolism, Chronic pain syndrome. - Condition is Stable. - Discharge Instructions: Nonspecific Chest Pain, Chronic Pain. - Medication Reconciliation, Local Pharmacy Hours form. - Follow up: Jean Carlos Maurice; When: Call to arrange an appointment; Reason: Recheck today's complaints, Continuance of care. Follow up: Lizzy Aguilar MD; When: Call to arrange an appointment; Reason: Recheck today's complaints, Continuance of care. - Problem is an acute exacerbation. - Symptoms have improved. - Notes: Use your usual pain medications, previously prescribed, for pain Keep your next scheduled dialysis appointment Return to the ED for any further concerns Historical: - Allergies: ACETAMINOPHEN; Erythromycin; NSAIDS; peanuts; PENICILLINS; Proventil HFA; Morphine; - Home Meds: 1. Advair Diskus 250-50 mcg/dose Inhl dsdv 1 puff 2 times per day 2. aspirin 81 mg Oral tab 1 tab once daily 3. atenolol 50 mg Oral tab 50mg at bedtime on dialysis days. 50mg BID on non dialysis days 4. Bactroban 2 % Topical crea 3 times per day 5. citalopram 40 mg Oral tab 1 tab once daily 6. clonidine HCl 0.2 mg oral tab 3 times per day 7. losartan 100 mg oral tab 1 tab once daily 8. Drisdol 50,000 unit Oral cap 1 cap once wkly 9. insulin lispro 100 unit/mL subcutaneous crtg 16 units nightly 10. levetiracetam 500 mg oral tab 1 tab 2 times per day 11. levothyroxine 50 mcg Oral tab 1 tab once daily 12. pregabalin 75 mg Oral cap 1 cap 2 times per day 13. magnesium oxide 400 mg oral tab twice a day 14. Multiple Vitamins oral tab daily 15. Nicoderm CQ 21 mg/24 hr transdermal pt24 1 patch once daily 16. Zofran (as hydrochloride) 4 mg Oral tab every 6 hours 17. Renvela 800 mg oral tab 1 tab 3 times per day 18. oxycodone 15 mg Oral TR12 0.5 tab every 6 hours 19. senna 8.6 mg oral cap 2 caps BID 20. Sensipar 30 mg oral tab 1 tab once daily 21. simvastatin 20 mg Oral tab 1 tab once daily 22. Singulair 10 mg Oral tab 1 tab once daily 23. 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 - Social history: Smoking status: Patient uses tobacco products, current every day smoker. No barriers to communication noted, The patient speaks fluent Greek, Speaks appropriately for age. - : The pt / caregiver states he / she is not on anticoagulants. Home medication list is obtained from the patient. - Exposure Risk Screening:: None identified. Vital Signs: 14:22 BP 205 / 91 (auto/); lf1 14:22 Pulse 78 MON; lf1 14:26 BP 205 / 91; Pulse 71; Resp 16; Temp 97.7; Pulse Ox 100% on R/A; Weight 84.82 kg / 187 jrd lbs (R); Height 5 ft. 5 in. (165.10 cm) (R); Pain 10/10; 14:33 BP 217 / 93 (auto/); lf1 14:33 Pulse 78 MON; lf1 14:35 BP 168 / 87 RA Supine (auto/reg); Pulse 74; jrd 15:17 BP 192 / 81 (auto/); lf1 15:19 Pulse 82 MON; Resp 16; Pulse Ox 98% ; Pain 10/10; lf1 17:51 BP 170 / 75 (auto/); jo3 17:51 Pulse 78 MON; jo3 19:04 BP 205 / 84 (auto/); nn1 19:04 Pulse 84 MON; nn1 19:04 Resp 18; nn1 19:15 BP 223 / 100 (auto/); nn1 19:15 Pulse 84 MON; Pulse Ox 95% ; nn1 19:53 BP 226 / 102 (auto/); nn1 19:55 Pulse 78 MON; Pulse Ox 96% ; nn1 21:51 Pulse 78; Resp 20; Temp 97.8(TE); radha 23:49 BP 146 / 84 (man/); Pulse 76; Resp 18; Temp 97.6; Pulse Ox 96% on R/A; Pain 10/10; nn1 14:26 Body Mass Index 31.12 (84.82 kg, 165.10 cm) jrd MDM: 14:04 ECG WITH READING ER PHYS+CARDIAG ordered. EDMS 14:35 Aspirin Chewable Tablet 324 mg PO once ordered. le 14:35 Subassembly Assembler/Pulse Ox/q 30 min VS ordered. le 14:35 IV Saline Lock ordered. le 14:35 Rhythm Strip to chart ordered. le 14:35 Undress patient appropriately for examination ordered. le 14:35 B-Type Natiuretic Peptide Ordered. EDMS 14:35 Basic Metabolic Profile Ordered. EDMS 14:35 CBC with Diff Ordered. EDMS 14:35 Cardiac Injury Profile Ordered. EDMS 14:35 D-Dimer Quant Ordered. EDMS 14:35 Partial Thromboplastin Time Ordered. EDMS 14:35 Prothrombin Time Profile\E\INR Ordered. EDMS 14:35 Troponin Ordered. EDMS 14:35 portable chest Ordered. EDMS 14:55 oxyCODONE 5 mg PO once ordered. le 15:46 B-Type Natiuretic Peptide Reviewed. le 15:46 CBC with Diff Reviewed. le 15:46 D-Dimer Quant Reviewed. le 15:46 Partial Thromboplastin Time Reviewed. le 15:46 Prothrombin Time Profile\E\INR Reviewed. le 15:46 portable chest Reviewed. le 16:45 Basic Metabolic Profile Reviewed. le 16:45 Cardiac Injury Profile Reviewed. le 16:45 Troponin Reviewed. le 16:47 Redraw CIP &Troponin (put time in details section) ordered. le 16:47 Repeat EKG (put time details section) ordered. le 16:50 RENAL DIET+DIET ordered. EDMS 17:24 Redraw CIP &Troponin (put time in details section) complete. deg 17:24 Repeat EKG (put time details section) complete. deg 17:25 CARDIAC MARKER PANEL Ordered. EDMS 17:26 ECG WITH READING ER PHYS ordered. EDMS 17:56 [facility] Payment Agreement was scanned into [employer] and attached to record. gjb 17:57 Financial registration complete. gjb 20:28 CARDIAC MARKER PANEL Reviewed. le 20:32 cloNIDine 0.2 mg PO once ordered. le 20:34 Atenolol 100 mg PO once ordered. le 20:45 Misc. Nursing Order ordered. le 21:50 oxyCODONE 5 mg PO once; Give immediately preceding DC ordered. le 06/11 10:52 T-Sheet-- Draft Copy was scanned into [employer] and attached to record. gb 10:52 ECG/EKG was scanned into [employer] and attached to record. gb 10:53 Trend VS was scanned into [employer] and attached to record. gb Administered Medications: 06/10 14:55 Drug: Aspirin 324 mg [aspirin 81 mg chewable tablet (4 tabs)] Route: PO; jo3 15:25 Drug: oxyCODONE 5 mg [oxycodone 5 mg tablet (1 tabs)] Route: PO; lf1 20:34 CANCELLED (Other Intervention Used): Atenolol 50 mg PO once le 20:44 Drug: cloNIDine 0.2 mg [clonidine HCl 0.2 mg tablet (1 tabs)] Route: PO; nn1 20:44 Drug: Atenolol 100 mg [atenolol 25 mg tablet (4 tabs)] Route: PO; nn1 23:49 Drug: oxyCODONE 5 mg [oxycodone 5 mg tablet (1 tabs)] Route: PO; nn1 Signatures: Dispatcher [employer] EDMS Sheri Neal, [place] Installer Unit deg Gerri Artis RN Nathalie Rebolledo, Reg Reg Tamika Quinn RN RN jo3 Westcott, Lisa, CHIEF PSYCHOLOGIST Nadira Lopez RN RN nn1 Pam Mark Lisa RN lf1 The chart was reviewed and I authenticate all verbal orders and agree with the evaluation and treatment provided.Corrections: (The following items were deleted from the chart) 20:34 20:32 Atenolol 50 mg PO once ordered. gael mayo Attachments: 17:56 [facility] Payment Agreement gjb 06/11 10:52 T-Sheet-- Draft Copy gb 10:52 ECG/EKG gb Chart Complete MTDD
== END 2016-06-10 23:54 | disposition home or self-care (01) ==
LOC: M ED 13:55
DX: R07.9 Chest pain, unspecified (principal); M79.1 Myalgia; G89.29 Other chronic pain; I10 Essential (primary) hypertension; J45.909 Unspecified asthma, uncomplicated; I25.10 Atherosclerotic heart disease of native coronary artery without angina pectoris; I25.2 Old myocardial infarction; E03.9 Hypothyroidism, unspecified; M54.9 Dorsalgia, unspecified; F31.9 Bipolar disorder, unspecified; N19 Unspecified kidney failure; Z99.2 Dependence on renal dialysis; E11.40 Type 2 diabetes mellitus with diabetic neuropathy, unspecified; I73.9 Peripheral vascular disease, unspecified; E11.319 Type 2 diabetes mellitus with unspecified diabetic retinopathy without macular edema; Z79.899 Other long term (current) drug therapy; Z79.82 Long term (current) use of aspirin; Z79.4 Long term (current) use of insulin; Z88.6 Allergy status to analgesic agent; Z88.1 Allergy status to other antibiotic agents; Z88.8 Allergy status to other drugs, medicaments and biological substances; Z88.0 Allergy status to penicillin; Z88.5 Allergy status to narcotic agent; Z91.010 Allergy to peanuts; F17.210 Nicotine dependence, cigarettes, uncomplicated

== ENCOUNTER 2016-06-11 09:40 | Inpatient (IN) | payer MEDICARE, MEDICAID ==
[~2016-06-11] VITALS: Ht 162.6 cm; Wt 75.6 kg
[2016-06-11] MEDS ORDERED: PERCOCET 5MG/325MG TAB As Ordered ONE (10:54)
[2016-06-11] MEDS ORDERED: oxyCODONE 5MG TAB As Ordered ONE (10:57)
--- NOTE | 2016-06-11 11:04 | REP ---
CT STUDY OF THE LEFT HIP WITHOUT CONTRAST: HISTORY: Trauma. Comparison CT imaging is from January 2014. Comparison radiographs are from today. CT FINDINGS: There is osteoarthritic spurring in the femoral acetabular articulation on the left. No fracture seen in the left hemipelvis or left proximal femur. No soft tissue hematoma is appreciated. Coronal and sagittal multiplanar reformation images are generated and these show no evidence of fracture. There is mild degenerative change in the symphysis pubis. The visualized portions of the right hemipelvis and right proximal femur are intact. IMPRESSION: Osteoarthritis. No fracture seen. Signed by German Farley MD 06/11/2016 01:51 P
--- NOTE | 2016-06-11 11:31 | REP ---
AP pelvis/left hip: Three views. History: Trauma. Findings: The bony pelvic ring is intact. There is some diffuse osteopenia. Heavy vascular calcification is noted and there is an elongate intra-arterial vascular stent along the course of the superficial femoral artery on the left. No left hip or pelvic fracture is seen. There is mild osteoarthritis. Impression: No fracture noted. Vascular stent. Signed by German Farley MD 06/11/2016 02:00 P
[2016-06-11] MEDS ORDERED: ADV250INH INH (13:15)
[2016-06-11] MEDS ORDERED: ATEN50TA2 PO ×2 (13:16→13:17)
[2016-06-11] MEDS ORDERED: ASPI1TAB PO (13:16)
[2016-06-11] MEDS ORDERED: CITA40TA4 PO (13:23)
[2016-06-11] MEDS ORDERED: BENA25CA4 PO (13:23)
[2016-06-11] MEDS ORDERED: CLON0.2T PO ×2 (13:23)
[2016-06-11] MEDS ORDERED: INSUHUMDS SC (13:28)
[2016-06-11] MEDS ORDERED: COLA100C PO (13:28)
[2016-06-11] MEDS ORDERED: LEVO50TA45 PO (13:28)
[2016-06-11] MEDS ORDERED: VITMTA PO (13:28)
[2016-06-11] MEDS ORDERED: KEPP500T6 PO (13:28)
[2016-06-11] MEDS ORDERED: MAGN400T5 PO (13:28)
[2016-06-11] MEDS ORDERED: NICODIS TD (13:28)
[2016-06-11] MEDS ORDERED: TIZA4CAP3 PO (13:33)
[2016-06-11] MEDS ORDERED: TOUJ1.2I SC (13:33)
[2016-06-11] MEDS ORDERED: RENV2TAB PO (13:33)
[2016-06-11] MEDS ORDERED: XANA0.5T PO (13:33)
[2016-06-11] MEDS ORDERED: SIMV20TA2 PO (13:33)
[2016-06-11] MEDS ORDERED: CINA30TA PO (13:33)
[2016-06-11] MEDS ORDERED: LYRI75CA PO (13:33)
[2016-06-11] MEDS ORDERED: SING10TA32 PO (13:33)
[2016-06-11] MEDS ORDERED: OXYC15TA76 PO (13:33)
[2016-06-11 14:06] LABS: ALBUMIN 2.6 GM/DL (3.2-5.2); ALBUMIN/GLOBULIN RATIO 0.76 (1.00-1.93); BILIRUBIN,DIRECT 0.1 MG/DL (0.0-0.2); BILIRUBIN,TOTAL 0.4 MG/DL (0.2-1.0); CALCIUM LEVEL 8.5 MG/DL (8.5-10.1); CREATININE FOR GFR 3.8 MG/DL (0.55-1.02); POTASSIUM SERUM 3.1 MEQ/L (3.5-5.1)
--- NOTE | 2016-06-11 14:11 | REP ---
MR LUMBAR SPINE WITHOUT CONTRAST: HISTORY: Weakness. COMPARISON: 10/16/2014 Decreased signal intensity on T2-weighted images is present in the L3-4 through L5-S1 intervertebral discs. THE discs are decreased in height. These findings are consistent with disc degeneration. There is no disc bulge or herniation at the L1-2 and L2-3 levels. The nerves exit the neural foramina without compression. A diffuse disc bulge is present at the L3-4 level. There is minimal compression of the thecal sac. There is hypertrophy of the posterior articulating facets. The L3 nerves exit the neural foramina without compression. A diffuse disc bulge is present at the L4-5 level. There is hypertrophy of the ligamenta flava and posterior articulating facets. These findings produce minimal central canal stenosis. The L4 nerves exit the neural foramina without compression. A diffuse disc bulge is present at the L5-S1 level. There are 2 mm of retrolisthesis of L5 on S1. The disc bulge abuts the thecal sac and S1 nerves. There is hypertrophy of the posterior articulating facets. The L5 nerves exit the neural foramina without compression. The conus medullaris is normal in appearance terminating at the level of the L1-2 intervertebral disc. Increased signal intensity on T2-weighted images is present in the endplates of the L4 through S1 vertebral bodies. This represents degenerative change. There is an old compression fracture of the T12 vertebral body with minimal height loss. IMPRESSION: 1. Diffuse disc bulge at the L3-4 level with minimal thecal sac compression. 2. Minimal central canal stenosis at the L4-5 level secondary to disc bulge, ligamentous and facet hypertrophy. 3. Diffuse disc bulge and retrolisthesis at the L5-S1 level. The disc bulge abuts the thecal sac and S1 nerves. There is no significant change compared to the previous study. Signed by Agustin Alfaro MD 06/11/2016 02:17 P
[2016-06-11 14:17] LABS: BASO % 0.2 % (0.0-1.0); EOS % 0.5 % (0.0-3.0); LARGE UNSTAINED CELL # 0.1 K/mm3 (0.0-0.4); LARGE UNSTAINED CELL % 0.8 % (0.0-4.0); LYMPH # 1.1 K/mm3 (1.5-4.5); LYMPH % 14.4 % (24.0-44.0); MEAN CORPUSCULAR HEMOGLOBIN 27.4 pg (27.0-33.0); MEAN CORPUSCULAR HGB CONC 31.4 g/dl (32.0-36.5); MEAN CORPUSCULAR VOLUME 87.2 fl (80.0-96.0); MONO # 0.4 K/mm3 (0.0-0.8); MONO % 5.3 % (0.0-5.0); NEUTROPHILS # 6.1 K/mm3 (1.8-7.7); NEUTROPHILS % 78.8 % (36.0-66.0); PLATELET COUNT, AUTOMATED 165 k/mm3 (150-450); WHITE BLOOD COUNT 7.7 K/mm3 (4.0-10.0)
--- NOTE | 2016-06-11 15:17 | HPEPDOC ---
Medical History and Physical Date of Admission 06/11/16 History and Physical ATTENDING: Dr. Tucker PCP: Dr Jeff Hunt. CC: Left hip pain HPI: 55 yo female with a past medical history significant for ESRD, retention, diabetes, hyperlipidemia, CAD who reported to the emergency department reporting left hip pain since a fall out of bed this morning. She apparently landed on her left hip. She denies head injury. Denies loss of consciousness. Denies presyncope or syncope. Does not report chest pain and heaviness tightness or pressure. She states she was discharged from rehabilitation at [facility] approximately 3 weeks ago. She reports she had been there for 11 months following a toe amputation. She states that she has been home she has had difficulty taking care of herself, difficulty with activities of daily living, difficulty ambulating, difficulty dressing and taking care of herself. For this reason she was trying to get into assisted living and reports she had an upcoming visit arranged to address this. She states unsteadiness has been increasing, weakness has been increasing. She is tearful throughout the interview and exam. Denies any fevers, chills, weakness, fatigue, BOWERS, CP, SOB, cough, palpitations, abdominal pain, N/V/D or changes in bowel or bladder habits. Upon presentation to the hospital the patient was found to have left hip pain, thus the hospitalist team was consulted. PMHx: ESRD-hemodialysis Tuesday- AVF left upper arm-Dr. Maurice Hypertension Diabetes Hypothyroidism Hyperlipidemia CAD/[place] History of seizure PVD Asthma Anxiety PSHX: Transmetatarsal amputation/Multiple toe amputations, last approximately 11 months ago. Released from rehabilitation at [facility] in [place] 3 weeks ago. History of Cholecystectomy Cardiac angioplasty History of femoral stent SOCHX: Resides in: [place], lives alone Marital Status: Kids: 3 Employment: Disabled Tobacco use: 3 per day ETOH: Denies Illicit Drugs: Denies Recent travel: Denies Advanced directives: None FAMHX: Mother: , CAD Father: , CAD Siblings: One brother, one , CAD Children: Alive, well Unexpected deaths due to medical reasons: None. ROS: As noted in HPI, otherwise 11pt ROS of systems reviewed and unremarkable PE: GEN: 55yoF, appears older than stated age. Alert and oriented x 3. Teary. HEENT: Normocephalic, atraumatic. Pupils are equal, round, and reactive to light. Extraocular movements are intact. No nystagmus appreciated. Sclera are nonicteric. Conjunctiva without injection. Nose midline. Nasal turbinates without bogginess. No facial asymmetry. Moist mucous membranes. Dentition poor. Pharynx pink and moist, no cobblestoning. Neck supple, trachea midline. No lymphadenopathy or thyromegaly appreciated. CHEST: Regular rate and rhythm, +S1, +S2 LUNGS: Clear to auscultation anteriorly. No wheezes, rales, or rhonchi appreciated. Breathing appears symmetric and easy. No accessory muscle use. ABD: Round, soft, non-tender, non-distended. +Bowel sounds throughout. No rebound or guarding. No costovertebral angle tenderness. EXT: No lower extremity edema appreciated. SKIN: [place], dry, warm. No rashes. NEURO: Alert and oriented x 3. No focal deficits appreciated. Sensory and motor function is intact, 5/5 in all 4 extremities, decreased range of motion in the hip secondary to pain CXR: No acute disease. Left hip x-ray No fracture noted. Vascular stent. CT left hip. Osteoarthritis, no fracture. MRI lumbosacral spine. 1. Diffuse disc bulge at the L3-4 level with minimal thecal sac compression. 2. Minimal central canal stenosis at the L4-5 level secondary to disc bulge, ligamentous and facet hypertrophy. 3. Diffuse disc bulge and retrolisthesis at the L5-S1 level. The disc bulge abuts the thecal sac and S1 nerves. There is no significant change compared to the previous study. A&P: 55 yo female with a past medical history significant for ESRD, retention, diabetes, hyperlipidemia, CAD who reported to the emergency department reporting left hip pain since a fall out of bed this morning. She states she was discharged from rehabilitation at [facility] in [place] approximately 3 weeks ago. She reports she had been there for 11 months following a toe amputation. The patient will be admitted to /S for at least [address] Tucker's service. Patient is discussed with Dr. Dang. Unsteady gait/mechanical fall. Pt states she has been weak since d/c from rehab. Unable to care for herself. PT/OT/PFS. Left hip pain. X-ray/CT with no acute changes/fracture. Low back pain. MRI of lumbosacral spine with no acute changes. ESRD/hemodialysis. Request Dr. Maurice to follow. Patient receives hemodialysis Tuesday//Tuesday. Hypertension. Continue atenolol 50 mg daily with hold parameters, clonidine 0.2 mg daily with hold parameters- (per admission information patient was on a regimen including atenolol 50 mg twice a day 3 times weekly and clonidine twice daily for times weekly which seems to be a complicated regimen), losartan 100 mg daily with hold parameters. Adjust further if needed pending blood pressures. IDDM. Controlled carbohydrate diet. Sliding scale insulin. Hypothyroidism. Continue supplement. Hyperlipidemia. Continue statin. Hypokalemia. Add oral supplement. Add magnesium level to labs. CAD. Continue atenolol. Asthma continue Advair/Singulair Anxiety. Continue Celexa. Chronic pain. Continue Lyrica daily. Oxycodone 5 mg every 6 hours as needed. ( This is a reduced dose from her outpatient dosage which was ordered 15 mg twice a day as needed and 7.5 mg twice a day as needed- will monitor) DVT prophylaxis. The patient is a Full Code. Patient seen and examined. Patient well known to me from several hospitalizations. Lengthy discussion was had, patient admits that since leaving Rehab in [place] where she had been for 11 months she is just not able to care for herself. At this time her only complaint is pain the left hip, otherwise on exam neurologically she is intact CN II-XII, non focal exam. Her pain appears secondary to trauma without acute fracture. At this tiem she understands there is no indication for medical admission, however, she is unable to care for herself and wants to be placed in [facility] and requests social admission. Patients daughter is bedside for the duration of the conversation. Vital Signs 166/87 72 18 96.9 99 room air Laboratory Data Labs 24H Laboratory Tests 2 06/11/16 13:33: Aspartate Amino Transf (AST/SGOT) 19, Alanine Aminotransferase (ALT/SGPT) 21, Alkaline Phosphatase 143H, Total Bilirubin 0.4, Direct Bilirubin 0.1, Albumin 2.6L, Albumin/Globulin Ratio 0.76L, Anion Gap 11, Calcium Level 8.5, Glomerular Filtration Rate 13.0L, Thyroid Stimulating Hormone (TSH) 0.527, Total Protein 6.0L 06/11/16 14:08: White Blood Count 7.7, Red Blood Count 5.48H, Hemoglobin 15.0, Hematocrit 47.8H , Mean Corpuscular Volume 87.2, Mean Corpuscular Hemoglobin 27.4, Mean Corpuscular Hemoglobin Concent 31.4L, Red Cell Distribution Width 14.0, Platelet Count 165, Neutrophils (%) (Auto) 78.8H, Lymphocytes (%) (Auto) 14.4L, Monocytes (%) (Auto) 5.3H, Eosinophils (%) (Auto) 0.5, Basophils (%) (Auto) 0.2 , Neutrophils # (Auto) 6.1, Lymphocytes # (Auto) 1.1L, Monocytes # (Auto) 0.4, Eosinophils # (Auto) 0.0, Basophils # (Auto) 0.0, Large Unclassified Cells # 0.1 , Large Unclassified Cells % 0.8 CBC/BMP Laboratory Tests 06/11/16 13:33 06/11/16 14:08 Red Blood Count 5.48 H, Mean Corpuscular Volume 87.2, Mean Corpuscular Hemoglobin 27.4, Mean Corpuscular Hemoglobin Concent 31.4 L, Red Cell Distribution Width 14.0, Neutrophils (%) (Auto) 78.8 H, Lymphocytes (%) (Auto) 14.4 L, Monocytes (%) (Auto) 5.3 H, Eosinophils (%) (Auto) 0.5, Basophils (%) ( Auto) 0.2, Neutrophils # (Auto) 6.1, Lymphocytes # (Auto) 1.1 L, Monocytes # ( Auto) 0.4, Eosinophils # (Auto) 0.0, Basophils # (Auto) 0.0 Home Medications Scheduled Cyclobenzaprine HCl (Cyclobenzaprine HCl) 5 Mg Tab 5 MG PO TID Scheduled PRN Atropine Sulfate (Atropine Sulfate) 1 % Sherri 1-2 DROP PO Q2H PRN PRN TERMINAL SECRETIONS Use sublingually if unable to swallow MDD = 36 drops Lorazepam (Lorazepam) 1 Mg Tab 0.5 TAB PO Q4H PRN PRN ANXIETY/AGITATION Use sublingually if unable to swallow MDD = 3 mg Morphine Sulfate (Morphine Sulfate Concentrate) 10 Mg/0.5 Ml Conc 0.25-1 ML PO Q2H PRN PRN PAIN OR DYSPNEA Use sublingually if unable to swallow MDD = 12 ml Allergies Coded Allergies: Acetaminophen (Verified Allergy, Severe, BLEEDING PER PATIENT, 12/04/14) Erythromycin (Verified Allergy, Severe, HIVES ANAPHYLAXIS, 08/18/12) Peanut (Verified Allergy, Intermediate, PEANUT BUTTER - HIVES, 04/21/12) Penicillins (Verified Allergy, Intermediate, HIVES AND SWELLING, 05/28/14) Albuterol (Unverified Allergy, Unknown, hives, 09/07/14) NSAIDs (Unverified Allergy, Unknown, 02/18/15) Yuly Finley Jun 11, 2016 15:17 LARRY DANG MD Jun 27, 2016 12:59 Tizanidine Hydrochloride (Tizanidine HCl) 4 Mg Cap 4 MG PO Q8H PRN PRN SPASMS Allergies Coded Allergies: Acetaminophen (Verified Allergy, Severe, BLEEDING PER PATIENT, 12/04/14) Erythromycin (Verified Allergy, Severe, HIVES ANAPHYLAXIS, 08/18/12) Peanut (Verified Allergy, Intermediate, PEANUT BUTTER - HIVES, 04/21/12) Penicillins (Verified Allergy, Intermediate, HIVES AND SWELLING, 05/28/14) Albuterol (Unverified Allergy, Unknown, hives, 09/07/14) NSAIDs (Unverified Allergy, Unknown, 02/18/15) Yuly Finley Jun 11, 2016 15:17
[2016-06-11] MEDS ORDERED: oxyCODONE 5MG TAB PO PRN (16:00)
[2016-06-11] MEDS ORDERED: DEXTROSE 50% 50 ML SYRINGE IV PRN (16:00)
[2016-06-11] MEDS ORDERED: GLUCOSE 4 GM CHEW TABLET PO PRN (16:00)
[2016-06-11] MEDS ORDERED: GLUCAGON FOR INJ 1 MG VIAL (J1610) SC PRN (16:00)
[2016-06-11] MEDS ORDERED: ALPRAZolam 0.5 MG TAB PO PRN (16:15)
[2016-06-11 17:03] LABS: MAGNESIUM LEVEL 2.1 MG/DL (1.8-2.4)
[2016-06-11] MEDS: HumaLOG INSULIN (NovoLOG) PER UNIT SC SCH (17:30)
--- NOTE | 2016-06-11 18:42 | EDDOCDS ---
Physician Documentation [facility] Name: Tamie Carter Age: 55 yrs Sex: Female : 1960 Arrival Date: 06/11/2016 Time: 09:40 Bed 10 Private MD: Tracee Disposition: 06/11/16 14:54 Hospitalization ordered by Kal Campoverde for Inpatient Admission. Preliminary diagnosis is Pain in hip - left S/P fall. - Bed requested for 5 Joshi. - Status is Inpatient Admission. ml6 - Condition is Stable. - Problem is new. - Symptoms have improved. Historical: - Allergies: ACETAMINOPHEN; Erythromycin; Morphine; NSAIDS; peanuts; PENICILLINS; Proventil HFA; - Home Meds: 1. Advair Diskus 250-50 mcg/dose Inhl dsdv 1 puff 2 times per day (Last dose: Unknown) 2. amlodipine 10 mg Oral tab 1 tab once daily (Last dose: Unknown) 3. aspirin 81 mg Oral tab 1 tab once daily (Last dose: Unknown) 4. atenolol 100 mg Oral tab 1 tab twice a day (Last dose: Unknown) 5. atenolol 50 mg Oral tab 50mg at bedtime on dialysis days. 50mg BID on non dialysis days (Last dose: Unknown) 6. Bactroban 2 % Topical crea 3 times per day (Last dose: Unknown) 7. Benadryl 25 mg Oral cap 1 cap Q 6 HR PRN (Last dose: Unknown) 8. Celexa 40 mg Oral tab 1 tab once daily (Last dose: Unknown) 9. citalopram 40 mg Oral tab 1 tab once daily (Last dose: Unknown) 10. clonidine HCl 0.2 mg Oral tab 3 times per day (Last dose: Unknown) 11. Colace 100 mg oral cap 1 cap 2 times per day (Last dose: Unknown) 12. Drisdol 50,000 unit Oral cap 1 cap once wkly (Last dose: Unknown) 13. ergocalciferol (vitamin D2) 50,000 unit oral cap 1 cap once wkly on wednesdays (Last dose: Unknown) 14. insulin lispro 100 unit/mL subcutaneous crtg 16 units nightly (Last dose: Unknown) 15. Lantus 100 unit/mL Sub-Q soln 35 unit (Last dose: Unknown) 16. levetiracetam 500 mg oral tab 1 tab 2 times per day (Last dose: Unknown) 17. levothyroxine 50 mcg Oral tab 1 tab once daily (Last dose: Unknown) 18. losartan 100 mg oral tab 1 tab once daily (Last dose: Unknown) 19. magnesium oxide 400 mg Oral tab twice a day (Last dose: Unknown) 20. Multiple Vitamins oral tab daily (Last dose: Unknown) 21. Nicoderm CQ 21 mg/24 hr transdermal pt24 1 patch once daily (Last dose: Unknown) 22. Novolin R sliding scale Sub-Q three times a day sliding scale (Last dose: Unknown) 23. oxycodone 15 mg Oral TR12 0.5 tab every 6 hours (Last dose: Unknown) 24. OxyContin 10 mg Oral Tb12 as needed (Last dose: Unknown) 25. potassium chloride 20 mEq Oral TbER 1 tab once daily (Last dose: Unknown) 26. pregabalin 100 mg Oral cap daily (Last dose: Unknown) 27. pregabalin 75 mg Oral cap 1 cap 2 times per day (Last dose: Unknown) 28. Renvela 800 mg oral tab 1 tab 3 times per day (Last dose: Unknown) 29. senna 8.6 mg oral cap 2 caps bid (Last dose: Unknown) 30. Sensipar 30 mg oral tab 1 tab once daily (Last dose: Unknown) 31. simvastatin 20 mg Oral tab 1 tab once daily (Last dose: Unknown) 32. Singulair 10 mg Oral tab 1 tab once daily (Last dose: Unknown) 33. tizanidine 4 mg oral tab 1 tab every 8 hours (Last dose: Unknown) 34. Toujeo SoloStar 300 unit/mL (1.5 mL) subcutaneous inpn 50 units at HS (Last dose: Unknown) 35. Xanax 0.5 mg Oral tab 1 tab daily (Last dose: Unknown) 36. 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 No barriers to communication noted, Speaks appropriately for age. - Family history: Not pertinent. - : The pt / caregiver states he / she is not on anticoagulants. Home medication list is obtained from the patient. - Exposure Risk Screening:: None identified. Vital Signs: 06/11 09:51 BP 166 / 87; Pulse 72; Resp 18; Temp 96.9(TE); Pulse Ox 99% on R/A; Weight 84.82 kg / ml6 187 lbs (R); Height 5 ft. 4 in. (162.56 cm) (R); Pain 10/10; 14:00 BP 144 / 82; Pulse 70; Resp 16; Temp 98.3(O); Pulse Ox 98% on R/A; Pain 6/10; ml6 18:33 BP 155 / 87; Pulse 68; Resp 18; Pulse Ox 98% on R/A; Pain 0/10; ml6 09:51 Body Mass Index 32.10 (84.82 kg, 162.56 cm) ml6 MDM: 09:49 Hip,AP,LAT to include Pelvis Ordered. EDMS 10:16 Financial registration complete. mm15 10:19 [facility] Payment Agreement was scanned into [employer] and attached to record. mm15 10:28 CT Hip Without Contrast Ordered. EDMS 10:48 oxyCODONE-acetaminophen 5 mg-325 mg 2 tabs PO once ordered. sd1 11:02 oxyCODONE 5 mg PO once; 2 tabs ordered. ml6 11:03 Consult: Custodian Blood Bank ordered. ml6 11:39 MRI Screening Tool - Place on chart, inform RN ordered. sd1 11:39 CBC with Diff Ordered. EDMS 11:39 MED Profile Ordered. EDMS 11:39 Liver Profile Ordered. EDMS 11:40 -MRI-Spine, Lumbar without contrast Ordered. EDMS 11:42 THYROID STIMULATING HORMONE Ordered. EDMS 12:22 MRI Screening Tool - Place on chart, inform RN complete. ml6 12:27 BED REQUEST+ADM ordered. EDMS 14:22 CBC with Diff Reviewed. sd1 14:22 MED Profile Reviewed. sd1 14:22 Liver Profile Reviewed. sd1 14:22 THYROID STIMULATING HORMONE Reviewed. sd1 14:22 Hip,AP,LAT to include Pelvis Reviewed. sd1 14:22 CT Hip Without Contrast Reviewed. sd1 15:40 PHYSICAL THERAPY EVAL & TREAT ordered. EDMS 15:41 CONSISTENT CARBOHYDRATES ordered. EDMS 16:17 MAGNESIUM LEVEL Ordered. EDMS 17:01 Consult: Custodian Blood Bank complete. rb 17:50 Admission / Observation Status ordered. EDMS Administered Medications: 11:01 Not Given (patient has allergyy): oxyCODONE-acetaminophen 5 mg-325 mg 2 tabs PO once ml6 11:02 Drug: oxyCODONE 5 mg [oxycodone 5 mg tablet (1 tabs)] Route: PO; ml6 Signatures: Dispatcher [employer] EDMS Claudia Faustin MD MD sd1 Apple Lindquist, PSA PSA Dale Gandara RN RN ml6 Ezio Hughes mm15 David Dillon, CHER RN sa The chart was reviewed and I authenticate all verbal orders and agree with the evaluation and treatment provided.Corrections: (The following items were deleted from the chart) 11:44 11:39 THYROID STIMULATING HORMONE+LAB ordered. EDMS EDMS 16:17 16:07 MAGNESIUM LEVEL ordered. EDMS EDMS 17:43 11:38 IV Saline Lock ordered. sd1 ml6 Attachments: 10:19 [facility] Payment Agreement mm15 MTDD
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
[2016-06-11 18:50] VITALS: BP 120/70
[2016-06-11] MEDS ORDERED: POTASSIUM CHLORIDE 10 MEQ SR TABLET PO ONE (19:00)
[2016-06-11] MEDS: LOSARTAN 50 MG TAB PO SCH (20:33)
[2016-06-11] MEDS: cloNIDine 0.2 MG TAB PO SCH (20:33)
[2016-06-11] MEDS: MAGNESIUM OXIDE 400 MG TAB (MAG-OX) PO SCH (20:33)
[2016-06-11] MEDS: ASPIRIN 81 MG ENTERIC TAB PO SCH (20:34)
[2016-06-11] MEDS: PREGABALIN 75 MG CAP(LYRICA) PO SCH (20:34)
[2016-06-11] MEDS: SIMVASTATIN 20 MG TAB PO SCH (20:34)
[2016-06-11] MEDS: (RENVELA) SEVELAMER **CARBONate** 800 MG TAB PO SCH (20:34)
[2016-06-11] MEDS: ATENOLOL 50 MG TAB PO SCH (20:34)
[2016-06-11] MEDS: levETIRAcetam 250MG TABLET (KEPPRA) PO SCH (20:35)
[2016-06-11] MEDS: CitaloPRAM (CeleXA) 20 MG TAB PO SCH (20:35)
[2016-06-11] MEDS: CINACALCET 30 MG TAB (SENSIPAR) PO SCH (20:35)
[2016-06-11] MEDS: MULTIVITAMINS/MINERALS THERAP 1 TAB PO SCH (20:35)
[2016-06-11] MEDS: MONTELUKAST 10 MG TAB PO SCH (20:40)
[2016-06-11] MEDS ORDERED: HumaLOG INSULIN (NovoLOG) PER UNIT SC SCH (21:00)
[2016-06-11 22:00] VITALS: BP 128/76
[2016-06-12] MEDS: ADVAIR DISKUS 250/50 INH PWD INH SCH ×3 (05:13→19:53)
[2016-06-12 06:00] VITALS: BP 157/65
[2016-06-12] MEDS: (RENVELA) SEVELAMER **CARBONate** 800 MG TAB PO SCH ×3 (06:54→18:00)
[2016-06-12] MEDS: levETIRAcetam 250MG TABLET (KEPPRA) PO SCH (06:54)
[2016-06-12] MEDS: ASPIRIN 81 MG ENTERIC TAB PO SCH (06:55)
[2016-06-12] MEDS: CitaloPRAM (CeleXA) 20 MG TAB PO SCH (06:55)
[2016-06-12] MEDS: MULTIVITAMINS/MINERALS THERAP 1 TAB PO SCH (06:55)
[2016-06-12] MEDS: PREGABALIN 75 MG CAP(LYRICA) PO SCH (06:55)
[2016-06-12] MEDS: MAGNESIUM OXIDE 400 MG TAB (MAG-OX) PO SCH (06:55)
[2016-06-12] MEDS: CINACALCET 30 MG TAB (SENSIPAR) PO SCH (06:55)
[2016-06-12] MEDS: LEVOTHYROXINE 0.05 MG TAB (50 MCG) PO SCH (06:55)
[2016-06-12] MEDS: HumaLOG INSULIN (NovoLOG) PER UNIT SC SCH (07:30)
[2016-06-12] MEDS ORDERED: HEPARIN 1,000 UNITS/ML 10ML VIAL (FOR RADIOLOGY& DIALYSIS ONLY) XX ONE (09:00)
[2016-06-12] MEDS: LOSARTAN 50 MG TAB PO SCH (09:00)
[2016-06-12 11:15] VITALS: BP 120/68
[2016-06-12 11:22] LABS: MEAN CORPUSCULAR HEMOGLOBIN 27.5 pg (27.0-33.0); MEAN CORPUSCULAR HGB CONC 32.4 g/dl (32.0-36.5); RED CELL DISTRIBUTION WIDTH 15.4 % (11.5-14.5); WHITE BLOOD COUNT 8.2 K/mm3 (4.0-10.0)
[2016-06-12 11:50] LABS: ALBUMIN 2.8 GM/DL (3.2-5.2); CALCIUM LEVEL 8.9 MG/DL (8.5-10.1); CREATININE FOR GFR 4.86 MG/DL (0.55-1.02); GLOMERULAR FILTRATION RATE 9.8 (>51); PHOSPHORUS LEVEL 4.7 MG/DL (2.5-4.9)
[2016-06-12 11:56] LABS: POTASSIUM SERUM 3.8 MEQ/L (3.5-5.1)
[2016-06-12 13:30] VITALS: BP 88/60
[2016-06-12] MEDS ORDERED: NALOXONE INJ 0.4 MG/1 ML VIAL (J2310) IV STA (13:49)
[2016-06-12 13:50] LABS: ABG BASE EXCESS -3.3 (-2.0-2.0); ABG HCO3 21.8 MEQ/L (22.0-26.0); ABG PARTIAL PRESSURE CO2 39.5 mmHg (35.0-45.0); ABG PARTIAL PRESSURE O2 111.9 mmHg (75.0-100.0); ABG STANDARD HCO3 21.8 MEQ/L (22.0-26.0)
[2016-06-12 14:00] VITALS: BP 205/139
[2016-06-12 14:05] VITALS: BP 160/70
--- NOTE | 2016-06-12 15:17 | CR.PDOC ---
[facility] Consultation Consultation DATE OF ADMISSION: 06/11/2016 DATE OF CONSULTATION: 06/12/2016 ATTENDING PHYSICIAN: Dr. Dominique Tucker CONSULTING PHYSICIAN: Dr. Jean Carlos Maurice REASON FOR CONSULTATION: Management of end-stage renal disease, on hemodialysis. HISTORY OF PRESENT ILLNESS: Ms. Carter is a 55 year old female with past medical history significant for end-stage renal disease on hemodialysis Tuesday , and Tuesday, coronary artery disease, diabetes, hypertension, hyperlipidemia, hypothyroidism, peripheral vascular disease, seizure disorder, asthma and anxiety who presented to the emergency department complaining of left hip pain after sustaining a fall out of bed. She denied any loss of consciousness or head injury. She apparently was discharged from [facility] in [place] about 3 weeks ago and since being home she has been having difficulty with everyday activities. Apart from hip pain, she did not have any other acute complaints. On admission, she denied fevers, chills, chest pain, palpitations, cough, shortness of breath, weakness, fatigue, headache, nausea, vomiting, diarrhea, abdominal pain, changes to bowel and bladder habits. She was admitted into the hospital and nephrology consult was requested as Ms. Caretr is an end-stage renal disease patient on hemodialysis. PAST MEDICAL HISTORY: 1. End-stage renal disease, on hemodialysis Tuesday, , Tuesday 2. Coronary artery disease and history of ND 3. Hypertension 4. Diabetes 5. Hypothyroidism 6. Hyperlipidemia 7. History of seizure 8. Peripheral vascular disease 9. Asthma 10. Anxiety PAST SURGICAL HISTORY: 1. Transmetatarsal amputation and multiple toe amputations 2. Left upper extremity fistula 3. History of 4. Cholecystectomy 5. Cardiac angioplasty 6. History of femoral stent HOME MEDICATIONS: Please see below. ALLERGIES: Acetaminophen, albuterol, erythromycin, penicillin, NSAIDs SOCIAL HISTORY: Patient is a current smoker. Denies any alcohol or illicit drug use. She is disabled and lives alone in [place]. FAMILY HISTORY: Parents have history of coronary artery disease and she also has a sibling with history of coronary artery disease. REVIEW OF SYSTEMS: As per HPI, all other 10 point review of systems are negative. PHYSICAL EXAMINATION: Vital Signs Date Time Temp Pulse Resp B/P Pulse Ox O2 Delivery O2 Flow Rate FiO2 06/12/16 06:00 97.5 66 20 157/65 93 Room Air I&O- Last 24 Hours up to 6 AM 06/12/16 06:00 Intake Total 720 ml Output Total 0 ml Balance 720 ml GENERAL: Lying in bed comfortably, in no acute distress. HEENT: Normocephalic, atraumatic. Extraocular movements are intact. Moist mucosa. NECK: Supple. Jugular veins are not elevated. Trachea is midline. No cervical lymphadenopathy. HEART: Normal S1, S2. Regular rate and rhythm. LUNGS: Clear to auscultation bilaterally. ABDOMEN: Soft, nontender, nondistended. Bowel sounds are present. No rebound, guarding or rigidity. EXTREMITIES: No cyanosis or lower extremity edema. Positive pedal pulses bilaterally. SKIN: Warm and dry. Good skin turgor. No rashes noted. NEURO: No focal deficits. Cranial nerves II-XII are grossly intact. LABORATORY DATA: 06/12/16 11:14 Red Blood Count 5.21, Mean Corpuscular Volume 85.0, Mean Corpuscular Hemoglobin 27.5, Mean Corpuscular Hemoglobin Concent 32.4, Red Cell Distribution Width 15.4 H, Albumin 2.8L, Anion Gap 10, Calcium Level 8.9, Glomerular Filtration Rate 9.8L, Phosphorus Level 4.7. IMAGING: Left hip x-ray done on 06/11 revealed no fracture, vascular stent. CT of the left hip revealed osteoarthritis, no fracture. MRI of the lumbosacral spine revealed diffuse disc bulge at the L3-4 level with minimal thecal sac compression, minimal central canal stenosis at the L4-5 level secondary to disc bulge, ligamentous and facet hypertrophy, diffuse disc bulge and retrolisthesis at the L5-S1 level, which is not significantly changed from previous study. ASSESSMENT AND PLAN: 1. End-stage renal disease on hemodialysis Tuesday, and Saturdays. Patient's volume status is well compensated. Electrolytes are stable. On a renal standpoint, she appears to be doing well and we will actually hold off on dialysis today. She will resume hemodialysis next week. 2. Mechanical fall resulting in left hip pain. Imaging did not show any acute fractures. She will need physical therapy. She was recently discharged from penit[facility]iary in [place]. 3. Hypertension. Blood pressure stable. Continue atenolol, clonidine and losartan. 4. Diabetes. Insulin sliding scale per protocol. 5. Secondary hyperparathyroidism. Continue Sensipar and Renvela. 6. Hypothyroidism. Patient is on Synthroid. 7. Hyperlipidemia. She is on Zocor. 8. Coronary artery disease. Continue aspirin, beta jacquie and statin. 9. History of seizure disorder. Patient takes Keppra at home. 10. Chronic pain. She is on narcotic medication at home. Thank you for the consultation and allowing us to participate in the care of Ms. Carter. We will continue to follow along with you. Allergies Coded Allergies: Acetaminophen (Verified Allergy, Severe, BLEEDING PER PATIENT, 12/04/14) Erythromycin (Verified Allergy, Severe, HIVES ANAPHYLAXIS, 08/18/12) Peanut (Verified Allergy, Intermediate, PEANUT BUTTER - HIVES, 04/21/12) Penicillins (Verified Allergy, Intermediate, HIVES AND SWELLING, 05/28/14) Albuterol (Unverified Allergy, Unknown, hives, 09/07/14) NSAIDs (Unverified Allergy, Unknown, 02/18/15) Home Medications Scheduled (Alta Barriga) 300 Unit/Ml Inj 50 UNIT SC QHS (Reported) Aspirin (Aspirin 81) 81 Mg Tab 81 MG PO DAILY (Reported) Atenolol (Atenolol) 50 Mg Tab 50 MG PO 3XW (Reported) BID ON TUE, TUE, TUE Atenolol (Atenolol) 50 Mg Tab 50 MG PO 3XW (Reported) QHS ON , , SAT Cinacalcet Hydrochloride (Sensipar) 30 Mg Tab 30 MG PO DAILY (Reported) Citalopram Hydrobromide (Citalopram Hydrobromide) 40 Mg Tab 40 MG PO DAILY ( Reported) Clonidine Hydrochloride (Clonidine HCl) 0.2 Mg Tab 0.2 MG PO 4XWK (Reported) TID ON TUE, TUE, TUE, TUE Clonidine Hydrochloride (Clonidine HCl) 0.2 Mg Tab 0.2 MG PO 3XW (Reported) @ 1600 ON , , SAT Ergocalciferol (Vitamin D) 50,000 Unit Cap 50,000 UNIT PO 1XWK (Reported) WEDNESDAYS Insulin Human Lispro (Humalog) 1 Units/0.01 Ml Inj 16 UNITS SC AC (Reported) Levetiracetam (Keppra) 500 Mg Tab 500 MG PO BID (Reported) Levothyroxine Sodium (Levoxyl) 50 Mcg Tab 50 MCG PO DAILY (Reported) Losartan Potassium (Losartan Potassium) 100 Mg Tab 100 MG PO DAILY (Reported) Magnesium Oxide (Magnesium Oxide 400) 400 Mg Tab 400 MG PO DAILY (Reported) Montelukast Sodium (Singulair) 10 Mg Tab 10 MG PO QHS (Reported) Multivitamins *[facility] STOCKED* (Thera M Plus *[facility] STOCKED*) 1 Tab Tab 1 TAB PO DAILY (Reported) Nicotine (Nicotine Step 1) 21 Mg/24 Hr Dis 21 MG TD DAILY (Reported) DOES NOT CURRENTLY HAVE PATCH ON Pregabalin (Lyrica) 75 Mg Cap 75 MG PO DAILY (Reported) Salmeterol/Fluticasone (Advair Diskus 250-50 Mcg/Dose) 14 Puff/Inhaler Aerp 1 PUFF INH BID (Reported) Sevelamer Carbonate (Renvela) 800 Mg Tab 2,400 MG PO WM (Reported) Simvastatin (Simvastatin) 20 Mg Tab 20 MG PO QHS (Reported) Scheduled PRN Alprazolam (Xanax) 0.5 Mg Tab 0.5 MG PO DAILY PRN PRN ANXIETY (Reported) Diphenhydramine HCl (Benadryl Allergy) 25 Mg Cap 25 MG PO Q6H PRN PRN ALLERGIES / ITCHING (Reported) Docusate Sodium (Colace) 100 Mg Cap 100 MG PO BID PRN PRN CONSTIPATION (Reported ) Oxycodone Hcl (Oxycodone HCl) 15 Mg Tab 15 MG PO BID PRN PRN PAIN (Reported) Oxycodone Hcl (Oxycodone HCl) 15 Mg Tab 7.5 MG PO BID PRN PRN PAIN (Reported) Tizanidine Hydrochloride (Tizanidine HCl) 4 Mg Cap 4 MG PO Q8H PRN PRN SPASMS ( Reported) GME ATTESTATION GME ATTESTATION My preceptor for this patient encounter was physically present in the building during the encounter and was fully available. As needed, all aspects of the patient interview, examination, medical decision making process, and medical care plan development were reviewed and approved by the preceptor. Preceptor is aware and concurs with the plan as stated in the body of this note and will attest to such by his/her cosignature. LON DUFFY DO Jun 12, 2016 15:16 LON DUFFY DO Jun 12, 2016 15:16
[2016-06-12] MEDS: ATENOLOL 50 MG TAB PO SCH (21:38)
[2016-06-12] MEDS: cloNIDine 0.2 MG TAB PO SCH (21:38)
[2016-06-12] MEDS: SIMVASTATIN 20 MG TAB PO SCH (21:39)
[2016-06-12 22:00] VITALS: BP 180/100
--- NOTE | 2016-06-12 22:20 | REPUSA ---
CLINICAL HISTORY: Prior diagnosis of PRES. Increasing lethargy. TECHNIQUE: Head CT without contrast COMPARISON: July 23, 2015. Brain: There has been further interval progression of low attenuation tracts involving the high front oparietal lobes and the occipital lobes which appear significantly wider compared to the July 2015 e xam. 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 The bands of i nvolvement have increased from approximately 1 cm diameter previously, to 3 cm currently. No intracra nial hemorrhage or hydrocephalus. Calvarium: Unremarkable. Sinuses (partially visualized): Clear. IMPRESSION: Significant progression of symmetric wide bands of parenchymal brain edema involving the frontoparietal and occipitoparietal margins. The progression suggests atypical posterior reversible e ncephalopathy complicated by infarction, or vasculitis (producing infarction), or watershed infarcts (from sustained hypotension). No evidence of acute hemorrhage. If there is clinical need for further imaging, brain MR without and with gadolinium may be helpful fo r further evaluation. Findings were discussed with Dr. Ennis, hospitalist.
[2016-06-12] MEDS: MONTELUKAST 10 MG TAB PO SCH (22:40)
[2016-06-12] MEDS: LIDOCAINE 5% OINT 30 GM TOP SCH (22:41)
[2016-06-13] VITALS (14 sets, daily range): BP systolic 118–144; BP diastolic 60–92; PULSE 79–80
[2016-06-13] MEDS: dexameTHASONE 4 MG/ML 1ML VIAL (J1100) IV SCH ×4 (00:16→17:08)
[2016-06-13 05:56] LABS: ALBUMIN 2.7 GM/DL (3.2-5.2); ANION GAP 14 MEQ/L (8-16); BLOOD UREA NITROGEN 23 MG/DL (7-18); CALCIUM LEVEL 8.7 MG/DL (8.5-10.1); CARBON DIOXIDE LEVEL 24 MEQ/L (21-32); CHLORIDE LEVEL 101 MEQ/L (98-107); CREATININE FOR GFR 3.39 MG/DL (0.55-1.02); GLOMERULAR FILTRATION RATE 14.9 (>51); GLUCOSE, FASTING 280 MG/DL (70-105); PHOSPHORUS LEVEL 4.8 MG/DL (2.5-4.9); POTASSIUM SERUM 4.1 MEQ/L (3.5-5.1); SODIUM LEVEL 139 MEQ/L (136-145)
[2016-06-13] MEDS: LEVOTHYROXINE 0.05 MG TAB (50 MCG) PO SCH (06:00)
[2016-06-13] MEDS ORDERED: SODIUM CHLORIDE 0.9% 1000 ML IV ONE ×2 (06:30→23:30)
[2016-06-13] MEDS: ADVAIR DISKUS 250/50 INH PWD INH SCH ×2 (07:28→20:51)
[2016-06-13] MEDS ORDERED: NITROGLYCERIN 0.4 MG SUBL TABLET SL STA (07:52)
[2016-06-13] MEDS: (RENVELA) SEVELAMER **CARBONate** 800 MG TAB PO SCH ×3 (08:00→16:07)
[2016-06-13] MEDS: CINACALCET 30 MG TAB (SENSIPAR) PO SCH (08:33)
[2016-06-13] MEDS: CitaloPRAM (CeleXA) 20 MG TAB PO SCH (08:34)
[2016-06-13] MEDS: MAGNESIUM OXIDE 400 MG TAB (MAG-OX) PO SCH (08:34)
[2016-06-13] MEDS: ASPIRIN 81 MG ENTERIC TAB PO SCH (08:34)
[2016-06-13] MEDS: MULTIVITAMINS/MINERALS THERAP 1 TAB PO SCH (08:34)
[2016-06-13] MEDS: LIDOCAINE 5% OINT 30 GM TOP SCH ×2 (08:35→20:21)
[2016-06-13 08:47] LABS: TOTAL PROTEIN 5.9 GM/DL (6.4-8.2)
[2016-06-13] MEDS ORDERED: DIVALPROEX 250MG *ER* TAB PO SCH (09:00)
[2016-06-13] MEDS ORDERED: PANTOPRAZOLE 40MG INJ (PROTONIX) (C9113) IV SCH (09:00)
[2016-06-13] MEDS ORDERED: GI COCKTAIL 50ML BTL(HYOSCYAMINE/MAALOX/LIDOCAINE VISCOUS)(1:3:1) PO ONE (09:00)
[2016-06-13 12:29] LABS: ABG BASE EXCESS -6.8 (-2.0-2.0); ABG HCO3 18.1 MEQ/L (22.0-26.0); ABG PARTIAL PRESSURE CO2 34.7 mmHg (35.0-45.0); ABG PARTIAL PRESSURE O2 117.8 mmHg (75.0-100.0); ABG TOTAL CO2 19.2 MEQ/L (22.0-29.0); ABG pH (ARTERIAL) 7.336 UNITS (7.350-7.450)
[2016-06-13] MEDS ORDERED: DEXTROSE 50% 50 ML SYRINGE IV PRN (12:30)
[2016-06-13] MEDS ORDERED: GLUCOSE 4 GM CHEW TABLET PO PRN (12:30)
[2016-06-13] MEDS: HumaLOG INSULIN (NovoLOG) PER UNIT SC SCH ×3 (13:06→23:42)
--- NOTE | 2016-06-13 13:39 | REP ---
MRA BRAIN WITHOUT CONTRAST: HISTORY: Unresponsive. 3D [id number] MRI angiography was performed at the level of the [place] chin of [place]. There is no aneurysm or arteriovenous malformation. Mild atherosclerotic disease involves the cavernous and supraclinoid internal carotid arteries. Mild atherosclerotic disease involves the A1 segments of the anterior cerebral arteries, posterior cerebral arteries and left middle cerebral artery trifurcation. Moderate atherosclerotic disease involves the right middle cerebral artery trifurcation. Major intracranial vessels are patent. The left vertebral artery is dominant. IMPRESSION: 1. There is no aneurysm or arteriovenous malformation. 2. Atherosclerotic disease as described above. MTDD
--- NOTE | 2016-06-13 13:46 | REP ---
MRI BRAIN WITHOUT CONTRAST: HISTORY: Unresponsive. COMPARISON: CT 06/12/2016. Large areas of increased signal intensity on diffusion and T2-weighted images are present in the posterior temporal and parietal lobes. These are decreased in signal intensity on ADC images _and____are consistent with ___ acute____infarcts. Small hemorrhagic components are present. There is mass effect with partial effacement at the overlying cortical sulci. There is no midline shift. Areas of increased signal intensity on T2-weighted images are present in the periventricular and subcortical white matter and rajani. This represents small vessel ischemic disease. There is no intraparenchymal mass. The ventricular system and cortical sulci are dilated consistent with minimal volume loss. There is no extracerebral collection. The sinuses are clear. IMPRESSION: Acute bilateral temporoparietal lobe infarctions. Small hemorrhagic components are present. There is no midline shift. MTDD
[2016-06-13] MEDS ORDERED: GI COCKTAIL 50ML BTL(HYOSCYAMINE/MAALOX/LIDOCAINE VISCOUS)(1:3:1) PO PRN (15:00)
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
--- NOTE | 2016-06-13 19:42 | EDDOCDS ---
Physician Documentation [facility] Name: Tamie Carter Age: 55 yrs Sex: Female : 1960 Arrival Date: 06/11/2016 Time: 09:40 Bed 10 Private MD: Tracee Disposition: 06/11/16 14:54 Hospitalization ordered by Kal Campoverde for Inpatient Admission. Preliminary diagnosis is Pain in hip - left S/P fall. - Bed requested for 5 Joshi. - Status is Inpatient Admission. ml6 - Condition is Stable. - Problem is new. - Symptoms have improved. Historical: - Allergies: ACETAMINOPHEN; Erythromycin; Morphine; NSAIDS; peanuts; PENICILLINS; Proventil HFA; - Home Meds: 1. Advair Diskus 250-50 mcg/dose Inhl dsdv 1 puff 2 times per day (Last dose: Unknown) 2. amlodipine 10 mg Oral tab 1 tab once daily (Last dose: Unknown) 3. aspirin 81 mg Oral tab 1 tab once daily (Last dose: Unknown) 4. atenolol 100 mg Oral tab 1 tab twice a day (Last dose: Unknown) 5. atenolol 50 mg Oral tab 50mg at bedtime on dialysis days. 50mg BID on non dialysis days (Last dose: Unknown) 6. Bactroban 2 % Topical crea 3 times per day (Last dose: Unknown) 7. Benadryl 25 mg Oral cap 1 cap Q 6 HR PRN (Last dose: Unknown) 8. Celexa 40 mg Oral tab 1 tab once daily (Last dose: Unknown) 9. citalopram 40 mg Oral tab 1 tab once daily (Last dose: Unknown) 10. clonidine HCl 0.2 mg Oral tab 3 times per day (Last dose: Unknown) 11. Colace 100 mg oral cap 1 cap 2 times per day (Last dose: Unknown) 12. Drisdol 50,000 unit Oral cap 1 cap once wkly (Last dose: Unknown) 13. ergocalciferol (vitamin D2) 50,000 unit oral cap 1 cap once wkly on wednesdays (Last dose: Unknown) 14. insulin lispro 100 unit/mL subcutaneous crtg 16 units nightly (Last dose: Unknown) 15. Lantus 100 unit/mL Sub-Q soln 35 unit (Last dose: Unknown) 16. levetiracetam 500 mg oral tab 1 tab 2 times per day (Last dose: Unknown) 17. levothyroxine 50 mcg Oral tab 1 tab once daily (Last dose: Unknown) 18. losartan 100 mg oral tab 1 tab once daily (Last dose: Unknown) 19. magnesium oxide 400 mg Oral tab twice a day (Last dose: Unknown) 20. Multiple Vitamins oral tab daily (Last dose: Unknown) 21. Nicoderm CQ 21 mg/24 hr transdermal pt24 1 patch once daily (Last dose: Unknown) 22. Novolin R sliding scale Sub-Q three times a day sliding scale (Last dose: Unknown) 23. oxycodone 15 mg Oral TR12 0.5 tab every 6 hours (Last dose: Unknown) 24. OxyContin 10 mg Oral Tb12 as needed (Last dose: Unknown) 25. potassium chloride 20 mEq Oral TbER 1 tab once daily (Last dose: Unknown) 26. pregabalin 100 mg Oral cap daily (Last dose: Unknown) 27. pregabalin 75 mg Oral cap 1 cap 2 times per day (Last dose: Unknown) 28. Renvela 800 mg oral tab 1 tab 3 times per day (Last dose: Unknown) 29. senna 8.6 mg oral cap 2 caps bid (Last dose: Unknown) 30. Sensipar 30 mg oral tab 1 tab once daily (Last dose: Unknown) 31. simvastatin 20 mg Oral tab 1 tab once daily (Last dose: Unknown) 32. Singulair 10 mg Oral tab 1 tab once daily (Last dose: Unknown) 33. tizanidine 4 mg oral tab 1 tab every 8 hours (Last dose: Unknown) 34. Toujeo SoloStar 300 unit/mL (1.5 mL) subcutaneous inpn 50 units at HS (Last dose: Unknown) 35. Xanax 0.5 mg Oral tab 1 tab daily (Last dose: Unknown) 36. 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 No barriers to communication noted, Speaks appropriately for age. - Family history: Not pertinent. - : The pt / caregiver states he / she is not on anticoagulants. Home medication list is obtained from the patient. - Exposure Risk Screening:: None identified. Vital Signs: 06/11 09:51 BP 166 / 87; Pulse 72; Resp 18; Temp 96.9(TE); Pulse Ox 99% on R/A; Weight 84.82 kg / ml6 187 lbs (R); Height 5 ft. 4 in. (162.56 cm) (R); Pain 10/10; 14:00 BP 144 / 82; Pulse 70; Resp 16; Temp 98.3(O); Pulse Ox 98% on R/A; Pain 6/10; ml6 18:33 BP 155 / 87; Pulse 68; Resp 18; Pulse Ox 98% on R/A; Pain 0/10; ml6 09:51 Body Mass Index 32.10 (84.82 kg, 162.56 cm) ml6 MDM: 09:49 Hip,AP,LAT to include Pelvis Ordered. EDMS 10:16 Financial registration complete. mm15 10:19 [facility] Payment Agreement was scanned into Proter[employer] and attached to record. mm15 10:28 CT Hip Without Contrast Ordered. EDMS 10:48 oxyCODONE-acetaminophen 5 mg-325 mg 2 tabs PO once ordered. sd1 11:02 oxyCODONE 5 mg PO once; 2 tabs ordered. ml6 11:03 Consult: Patient Svcs Mgr ordered. ml6 11:39 MRI Screening Tool - Place on chart, inform RN ordered. sd1 11:39 CBC with Diff Ordered. EDMS 11:39 MED Profile Ordered. EDMS 11:39 Liver Profile Ordered. EDMS 11:40 -MRI-Spine, Lumbar without contrast Ordered. EDMS 11:42 THYROID STIMULATING HORMONE Ordered. EDMS 12:22 MRI Screening Tool - Place on chart, inform RN complete. ml6 12:27 BED REQUEST+ADM ordered. EDMS 14:22 CBC with Diff Reviewed. sd1 14:22 MED Profile Reviewed. sd1 14:22 Liver Profile Reviewed. sd1 14:22 THYROID STIMULATING HORMONE Reviewed. sd1 14:22 Hip,AP,LAT to include Pelvis Reviewed. sd1 14:22 CT Hip Without Contrast Reviewed. sd1 15:40 PHYSICAL THERAPY EVAL & TREAT ordered. EDMS 15:41 CONSISTENT CARBOHYDRATES ordered. EDMS 16:17 MAGNESIUM LEVEL Ordered. EDMS 17:01 Consult: Patient Svcs Mgr complete. rb 17:50 Admission / Observation Status ordered. EDMS 06/12 21:54 Other: Hinn letter was scanned into Proter[employer] and attached to record. cs Administered Medications: 06/11 11:01 Not Given (patient has allergyy): oxyCODONE-acetaminophen 5 mg-325 mg 2 tabs PO once ml6 11:02 Drug: oxyCODONE 5 mg [oxycodone 5 mg tablet (1 tabs)] Route: PO; ml6 Signatures: Dispatcher Med[employer] EDWV Claudia Faustin MD MD sd1 Apple Lindquist, PSA PSA rb Denny Smith, PSA PSA Dale Mari RN RN ml6 Ezio Hughes mm15 David Dillon RN RN sa The chart was reviewed and I authenticate all verbal orders and agree with the evaluation and treatment provided.Corrections: (The following items were deleted from the chart) 11:44 11:39 THYROID STIMULATING HORMONE+LAB ordered. EDMS EDMS 16:17 16:07 MAGNESIUM LEVEL ordered. EDMS EDMS 17:43 11:38 IV Saline Lock ordered. sd1 ml6 Attachments: 10:19 [facility] Payment Agreement mm15 Chart Complete MTDD
--- NOTE | 2016-06-13 19:42 | EDDOCDS ---
Physician Documentation [facility] Name: Tamie Carter Age: 55 yrs Sex: Female : 1960 Arrival Date: 06/11/2016 Time: 09:40 Bed 10 Private MD: Tracee Disposition: 06/11/16 14:54 Hospitalization ordered by Kal Campoverde for Inpatient Admission. Preliminary diagnosis is Pain in hip - left S/P fall. - Bed requested for 5 Joshi. - Status is Inpatient Admission. ml6 - Condition is Stable. - Problem is new. - Symptoms have improved. Historical: - Allergies: ACETAMINOPHEN; Erythromycin; Morphine; NSAIDS; peanuts; PENICILLINS; Proventil HFA; - Home Meds: 1. Advair Diskus 250-50 mcg/dose Inhl dsdv 1 puff 2 times per day (Last dose: Unknown) 2. amlodipine 10 mg Oral tab 1 tab once daily (Last dose: Unknown) 3. aspirin 81 mg Oral tab 1 tab once daily (Last dose: Unknown) 4. atenolol 100 mg Oral tab 1 tab twice a day (Last dose: Unknown) 5. atenolol 50 mg Oral tab 50mg at bedtime on dialysis days. 50mg BID on non dialysis days (Last dose: Unknown) 6. Bactroban 2 % Topical crea 3 times per day (Last dose: Unknown) 7. Benadryl 25 mg Oral cap 1 cap Q 6 HR PRN (Last dose: Unknown) 8. Celexa 40 mg Oral tab 1 tab once daily (Last dose: Unknown) 9. citalopram 40 mg Oral tab 1 tab once daily (Last dose: Unknown) 10. clonidine HCl 0.2 mg Oral tab 3 times per day (Last dose: Unknown) 11. Colace 100 mg oral cap 1 cap 2 times per day (Last dose: Unknown) 12. Drisdol 50,000 unit Oral cap 1 cap once wkly (Last dose: Unknown) 13. ergocalciferol (vitamin D2) 50,000 unit oral cap 1 cap once wkly on wednesdays (Last dose: Unknown) 14. insulin lispro 100 unit/mL subcutaneous crtg 16 units nightly (Last dose: Unknown) 15. Lantus 100 unit/mL Sub-Q soln 35 unit (Last dose: Unknown) 16. levetiracetam 500 mg oral tab 1 tab 2 times per day (Last dose: Unknown) 17. levothyroxine 50 mcg Oral tab 1 tab once daily (Last dose: Unknown) 18. losartan 100 mg oral tab 1 tab once daily (Last dose: Unknown) 19. magnesium oxide 400 mg Oral tab twice a day (Last dose: Unknown) 20. Multiple Vitamins oral tab daily (Last dose: Unknown) 21. Nicoderm CQ 21 mg/24 hr transdermal pt24 1 patch once daily (Last dose: Unknown) 22. Novolin R sliding scale Sub-Q three times a day sliding scale (Last dose: Unknown) 23. oxycodone 15 mg Oral TR12 0.5 tab every 6 hours (Last dose: Unknown) 24. OxyContin 10 mg Oral Tb12 as needed (Last dose: Unknown) 25. potassium chloride 20 mEq Oral TbER 1 tab once daily (Last dose: Unknown) 26. pregabalin 100 mg Oral cap daily (Last dose: Unknown) 27. pregabalin 75 mg Oral cap 1 cap 2 times per day (Last dose: Unknown) 28. Renvela 800 mg oral tab 1 tab 3 times per day (Last dose: Unknown) 29. senna 8.6 mg oral cap 2 caps bid (Last dose: Unknown) 30. Sensipar 30 mg oral tab 1 tab once daily (Last dose: Unknown) 31. simvastatin 20 mg Oral tab 1 tab once daily (Last dose: Unknown) 32. Singulair 10 mg Oral tab 1 tab once daily (Last dose: Unknown) 33. tizanidine 4 mg oral tab 1 tab every 8 hours (Last dose: Unknown) 34. Toujeo SoloStar 300 unit/mL (1.5 mL) subcutaneous inpn 50 units at HS (Last dose: Unknown) 35. Xanax 0.5 mg Oral tab 1 tab daily (Last dose: Unknown) 36. 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 No barriers to communication noted, Speaks appropriately for age. - Family history: Not pertinent. - : The pt / caregiver states he / she is not on anticoagulants. Home medication list is obtained from the patient. - Exposure Risk Screening:: None identified. Vital Signs: 06/11 09:51 BP 166 / 87; Pulse 72; Resp 18; Temp 96.9(TE); Pulse Ox 99% on R/A; Weight 84.82 kg / ml6 187 lbs (R); Height 5 ft. 4 in. (162.56 cm) (R); Pain 10/10; 14:00 BP 144 / 82; Pulse 70; Resp 16; Temp 98.3(O); Pulse Ox 98% on R/A; Pain 6/10; ml6 18:33 BP 155 / 87; Pulse 68; Resp 18; Pulse Ox 98% on R/A; Pain 0/10; ml6 09:51 Body Mass Index 32.10 (84.82 kg, 162.56 cm) ml6 MDM: 09:49 Hip,AP,LAT to include Pelvis Ordered. EDMS 10:16 Financial registration complete. mm15 10:19 [facility] Payment Agreement was scanned into Proformative and attached to record. mm15 10:28 CT Hip Without Contrast Ordered. EDMS 10:48 oxyCODONE-acetaminophen 5 mg-325 mg 2 tabs PO once ordered. sd1 11:02 oxyCODONE 5 mg PO once; 2 tabs ordered. ml6 11:03 Consult: Gear Hobber ordered. ml6 11:39 MRI Screening Tool - Place on chart, inform RN ordered. sd1 11:39 CBC with Diff Ordered. EDMS 11:39 MED Profile Ordered. EDMS 11:39 Liver Profile Ordered. EDMS 11:40 -MRI-Spine, Lumbar without contrast Ordered. EDMS 11:42 THYROID STIMULATING HORMONE Ordered. EDMS 12:22 MRI Screening Tool - Place on chart, inform RN complete. ml6 12:27 BED REQUEST+ADM ordered. EDMS 14:22 CBC with Diff Reviewed. sd1 14:22 MED Profile Reviewed. sd1 14:22 Liver Profile Reviewed. sd1 14:22 THYROID STIMULATING HORMONE Reviewed. sd1 14:22 Hip,AP,LAT to include Pelvis Reviewed. sd1 14:22 CT Hip Without Contrast Reviewed. sd1 15:40 PHYSICAL THERAPY EVAL & TREAT ordered. EDMS 15:41 CONSISTENT CARBOHYDRATES ordered. EDMS 16:17 MAGNESIUM LEVEL Ordered. EDMS 17:01 Consult: Gear Hobber complete. rb 17:50 Admission / Observation Status ordered. EDMS 06/12 21:54 Other: Hinn letter was scanned into Proform[employer] and attached to record. cs Administered Medications: 06/11 11:01 Not Given (patient has allergyy): oxyCODONE-acetaminophen 5 mg-325 mg 2 tabs PO once ml6 11:02 Drug: oxyCODONE 5 mg [oxycodone 5 mg tablet (1 tabs)] Route: PO; ml6 Signatures: Dispatcher MedHost EDDE Claudia Faustin MD MD sd1 Apple Lindquist, PSA PSA rb Denny Smith, PSA PSA Dale Mari RN RN ml6 Ezio Hughes mm15 David Dillon RN RN sa The chart was reviewed and I authenticate all verbal orders and agree with the evaluation and treatment provided.Corrections: (The following items were deleted from the chart) 11:44 11:39 THYROID STIMULATING HORMONE+LAB ordered. EDMS EDMS 16:17 16:07 MAGNESIUM LEVEL ordered. EDMS EDMS 17:43 11:38 IV Saline Lock ordered. sd1 ml6 Attachments: 10:19 [facility] Payment Agreement mm15 Chart Complete MTDD
[2016-06-13] MEDS: SIMVASTATIN 20 MG TAB PO SCH (20:21)
[2016-06-13] MEDS: MONTELUKAST 10 MG TAB PO SCH (20:21)
[2016-06-13] MEDS: VALPROATE SOD INJ 750 MG in D5W 50 ML IV SCH (20:51)
[2016-06-14] VITALS (14 sets, daily range): BP systolic 120–158; BP diastolic 68–92
--- NOTE | 2016-06-14 01:24 | ECGEPIP ---
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 Last tracing on 06/10/2016 at 20:03:55 Electronically Signed On 06-14-2016 1:24:15 EST by Dc Keller
[2016-06-14 05:46] LABS: ALBUMIN 2.6 GM/DL (3.2-5.2); CALCIUM LEVEL 8.4 MG/DL (8.5-10.1); CREATININE FOR GFR 4.35 MG/DL (0.55-1.02); GLOMERULAR FILTRATION RATE 11.2 (>51); PHOSPHORUS LEVEL 4.8 MG/DL (2.5-4.9); POTASSIUM SERUM 3.7 MEQ/L (3.5-5.1)
[2016-06-14] MEDS ORDERED: LEVOTHYROXINE 100 MCG (0.1MG) VIAL IV SCH (06:00)
[2016-06-14] MEDS: HumaLOG INSULIN (NovoLOG) PER UNIT SC SCH ×4 (06:17→21:24)
--- NOTE | 2016-06-14 08:31 | IPN ---
DATE: 06/12/2016 Registered nurse called emergently because of unresponsiveness and decreased pressure with nonpalpable pressure of 60/palp. The patient was seen emergently. She is able to speak. The patient denies any chest pain or pressure. States that she does not feel well. At the bedside, she is afebrile, 97.5, pulse 66, sinus rhythm, respiratory rate of 20, saturating 99% on 1 liter nasal cannula. Current blood pressure is 60/palp. The patient's skin has no cyanosis. There is no mottling. She is awake, alert, oriented to person only. Disoriented to place and time. She speaks in sentences but confused. RESPIRATORY: Accessory muscles and moaning at the bedside. The patient has voluntary movements. When asked to open her eyes, she attempts to open them minimally. She is not able to squeeze my fingers and cooperate fully with the neurologic examination. GENERAL: The patient is awake, alert, oriented to person only. Unable to assess for extraocular muscles. LUNGS: Diminished breath sounds, but clear to auscultation. No wheezing, rales or rhonchi. HEART: S1, S2. Sinus rhythm. ABDOMEN: Soft, nontender, nondistended. Positive bowel sounds. EXTREMITIES: No pitting edema. The patient has amputations of all the toes on the left foot, none on the right foot. LABORATORY DATA: White count 8.2, hemoglobin 14, hematocrit 44, platelets 193. Sodium 137, potassium 3.8, chloride 98, bicarbonate 29, BUN 34, creatinine 4.86, glucose of 333. Arterial blood gas is pending. Ammonia level is 16. ASSESSMENT AND PLAN: This is a 55-year-old female with a history of end stage renal disease, diabetes, hyperlipidemia, coronary artery disease, hypothyroidism , myocardial infarction, history of seizures on chronic Keppra, peripheral vascular disease, multiple amputations of the left toes on hemodialysis Tuesday, and Tuesday, asthma, anxiety, section, coronary angioplasty, cholecystectomy and femoral stents recently discharged from rehabilitation in [place] approximately three weeks ago, unable to care for herself at home and was admitted yesterday complaining of left hip pain after falling out of bed this morning, landing on her left hip. The patient was admitted to alternate level of care (ALC) status due to no acute medical issues. CT of the extremity and pelvic x-ray shows osteoarthritis with no fractures seen. Lumbar spine MRI shows disc bulges with minimal thecal sac compression, minimal central canal stenosis at L4 to L5, ligamentous facet hypertrophy. Current issues are: 1. Acute encephalopathy, most likely medication induced from Lyrica, OxyIR, both of which have been discontinued. The patient's mentation may also have been worsened by renal failure and potential medication induced with Keppra due to decreasing clearance. I have spoken to Dr. Maurice, he is consulted, we will arrange for hemodialysis. I have spoken also with Dr. Quispe, who is our neurologist coke oven mason today, who is recommending Depakote loading dose 750 mg if the patient's clinical situation is suspicious for recurrent seizure episode. At this time, the patient has been given intravenous Narcan and appears to be much more awake and screaming at the bedside. The patient will be transferred to progressive care unit (PCU), telemetry, in order to do neuro checks every [address] of the head. The patient will undergo hemodialysis today per Dr. Maurice. 2. Acute on chronic renal failure, end stage renal disease on maintenance hemodialysis stage V. Due to decrease in clearance of medications, the patient' s Keppra, OxyIR may have caused her worsening lethargy, therefore these medications have been discontinued for now. Defer to Dr. Maurice for hemodialysis needs, which we will do today. 3. Left hip pain. No fracture or dislocation. The patient's pain medication had to be discontinued due to decrease in mentation, lethargy. 4. Hypotension. The patient's medications will be discontinued. Normal saline will be given for now in order to increase the mean arterial pressure to 60 to 65. 5. Anxiety. We have discontinued the patient's alprazolam, as she was initially unresponsive. DISPOSITION: The patient will be transferred emergently to a monitored floor for neuro checks and evaluation of altered mental status, CT of the head will be done. [facility]
--- NOTE | 2016-06-14 08:32 | CR ---
DATE OF CONSULTATION: 06/12/2016 REFERRING PHYSICIAN: Dr. Dominique Tucker HISTORY: The patient is a 55-year-old female who was admitted to the hospital for end-stage renal disease. She was doing fairly well till this morning. She had her breakfast and she seemed to be fully oriented. At about noon time, when the nursing staff went into her room, they noted that she was very lethargic. She was unable to respond appropriately. She would open her eyes briefly with any painful stimuli, but then she would go back to sleep. She was given naloxone for narcotics. She is still quite lethargic, but more alert than before. On questioning, she does not complain of any pain. She says that she does not have a headache. She does not feel dizzy and does not have double vision. She; however, does have pain all over her body for which she has been on narcotics in the past. She is awaiting to have a CT scan of the brain. CURRENT MEDICATIONS: Includes Synthroid, Singulair, Advair, simvastatin, atenolol, clonidine, Renvela, aspirin 81 mg daily, Sensipar, Celexa 40 mg daily, Cozaar and also multivitamin supplements. Her Lyrica 75 mg twice a day and also Keppra have been discontinued since this morning. It was assumed that her altered mental status was because of these medications. Oxycodone has also been stopped. PAST MEDICAL HISTORY: 1. Hypertension. 2. Diabetes. 3. Hypothyroidism. 4. Hyperlipidemia. 5. Coronary artery disease. 6. End-stage renal disease. 7. History of seizure. 8. Peripheral vascular disease. 9. Asthma. 10. Anxiety. 11. Status post 12. Cholecystectomy. 13. Cardiac angioplasty. 14. History of femoral stent placement. FAMILY HISTORY: There is history of coronary artery disease in her family. No further information is available from her because of her altered mental status. PERSONAL AND SOCIAL HISTORY: The patient is disabled and lives by herself in [place]. She does smoke. There is no history of any alcohol or drug abuse. REVIEW OF SYSTEMS: All other systems were reviewed and found to be noncontributory. PHYSICAL EXAMINATION: On examination, the patient does not appear in any discomfort, but she is very lethargic. Her blood pressure is 154/98. Her pulse is 79 per minute. Respirations are 20 per minute. Her temperature is 98.5 degrees Fahrenheit. She is 5 feet 4 inches tall. She weighs about 86 kg. Her neck is supple. There is no carotid bruit audible. Her ear, nose and throat examination is normal. Lungs are clear to auscultation. Her heart is regular in rhythm. Her abdomen is soft and nondistended. She does not have any ankle edema. The peripheral pulses are normally palpable. Neurologically as mentioned above, she is very lethargic. She opens eyes only briefly and then she falls back asleep. Her pupils are about 4 mm in size and reactive to light. The consensual light reflex is present bilaterally. Her visual aviles could not be tested. Her face is symmetrical. It is difficult to assess her motor function. I do not see any resting tremors of the hands. Her muscle tone is normal. Her sensory examination could not be performed. Deep tendon reflexes are 1+ and symmetrical with equivocal plantar reflexes. Her gait is not tested. DIAGNOSTIC STUDIES: The patient's CBC shows a white cell count of 8200, hemoglobin 14.3, hematocrit 44.3 and platelets 193,000. Her sodium is 137, potassium 3.8, BUN 34 and creatinine 4.86. Her calcium level is 8.9. Alkaline phosphatase level is 143. Her prolactin level is pending. IMPRESSION: 1. Altered mental status. 2. History of seizures. 3. Rule out Osler-Shoal CVA. 4. Metabolic encephalopathy. PLAN: 1. Await for the results of her CT scan of the brain. 2. Depakote 750 mg by mouth twice a day. 3. Hold off Keppra given her history of renal failure. 4. Aspirin 81 mg by mouth daily. 5. Continue with other care for now. Thank you very much for this consultation.
--- NOTE | 2016-06-14 08:32 | IPN ---
DATE: 06/11/2016 SUBJECTIVE: Ms. Carter was seen this morning during regular rounds. She has known history of end-stage renal disease. She did miss her last dialysis treatment. She has not been feeling well and was poorly responsive this morning. Her oral intake has been poor and her potassium level was low on admission, due to which we had decided for holding off on dialysis this morning. She is reevaluated this afternoon due to persistent drowsiness and poorly responsive behavior. Now, I have decided to dialyze her and see if that would help to improve her mentation. I do not feel that she is uremic and has no evidence for metabolic acidosis, electrolyte abnormality or fluid volume overload. PHYSICAL EXAMINATION: GENERAL: She is still quite lethargic but now responds to verbal command and was able to recognize me and call my name. VITAL SIGNS: Temperature is still low at 97.5 degrees Fahrenheit, heart rate is 88 per minute and respiratory rate 16 per minute. Most recent blood pressure 160/70 mmHg and oxygen saturation 95% on two liters oxygen. NECK: Neck veins are not abnormally distended. HEENT: Head is atraumatic. Ears, nose and throat are unremarkable. She is not able to fully cooperate for a detailed exam. HEART: Sounds are regular. LUNGS: Have poor inspiratory effort without any wheezing or rales. ABDOMEN: Soft and nontender. Bowel sounds are normal and there is no palpable organomegaly. EXTREMITIES: Have no cyanosis or clubbing. Left arm arteriovenous (AV) fistula is patent. She has midtarsal amputation of left foot. LABORATORY DATA: Today's labs showed sodium level 137 and potassium 3.8. CO2 is 29, BUN 34 and creatinine 4.86. Calcium level 8.9 and phosphorus 4.7. Ammonia level is 16. Blood gas showed a pH of 7.36, pCO2 39.5, pO2 111.9 and bicarb 21.8. CBC is unremarkable. PROBLEMS: 1. End-stage renal disease. We are going to dialyze her for three hours this afternoon. Her electrolytes are still within normal range and she has no evidence of metabolic acidosis or volume overload. We will maintain her fluid level. 2. Altered mentation. Etiology is uncertain. I do not feel that she has uremic encephalopathy. She has missed only one dialysis treatment and at present there is no evidence to suggest uremia. She will be dialyzed for three hours and then we will monitor until next week. All other issues are being addressed by hospitalist service.
--- NOTE | 2016-06-14 08:33 | IPN ---
DATE: 06/13/2016 Ms. Carter is seen this morning on her bedside. She was dialyzed yesterday evening, which she tolerated very well. This morning she is arousable and opens her eyes and answers simple questions with only one or two words, but is still quite lethargic. She has been kept n.p.o. due to her decreased mentation. There is no fever or chills. There is no reported vomiting or diarrhea. On physical exam, temperature 96.9 degrees Fahrenheit, heart rate 70 per minute and respiratory rate 20 per minute. Blood pressure 131/62 mmHg and oxygen saturation 98% on 1 liter of oxygen. Head is atraumatic. Neck veins are not abnormally distended. Neck is supple and there is no thyroid enlargement. Trachea is midline. Heart sounds are regular and lungs with poor inspiratory effort. Abdomen is soft and nontender. Bowel sounds are normal. There is no palpable organomegaly. Extremities have no cyanosis or clubbing. Left arm AV fistula is patent. Today's labs show sodium level 139 and potassium 4.1. BUN 23 and creatinine 3.39. Glucose 218, calcium 8.7. 1. End-stage renal disease. The patient was dialyzed yesterday and she did complete her dialysis treatment. 2. Altered mentation. Etiology remains uncertain. She has been seen by neurology and is scheduled for an MRI later today. At present, she is n.p.o. and her mentation remains diminished, though it is slightly better than yesterday. 3. Hypertension. Blood pressure is well-controlled at present and no adjustment in medication is indicated. 4. Hyperparathyroidism and hyperphosphatemia. The patient is currently n.p.o. I am not sure if she can take her pills. We will certainly stop her phosphate binder as the patient is n.p.o.
--- NOTE | 2016-06-14 08:33 | IPN ---
DATE: 06/13/2016 Yesterday, patient was found to be extremely lethargic per the nursing at the bedside. Blood pressure could not be obtained. Thought to be 60/palp. IV fluids were given yesterday, Trendelenburg. Patient was given a dose of Narcan, Lyrica, OxyIR were discontinued. Patient was able to awaken better. CT of the head performed due complaints of unresponsiveness. Showed progression of the symmetric white mass parenchymal brain edema involving the frontoparietal , occipitoparietal margins with progression suggesting atypical posterior reversible encephalopathy complicated by infarction or vasculitis and/or watershed infarct from sustained hypotension. No evidence of acute hemorrhage. Dr. Quispe was consulted, who recommended placing the patient on dexamethasone 4 mg every 6 hours as well as keeping the blood pressure above 130. Due to blood pressure systolic of 118, this morning patient was given IV bolus medications of normal saline at 250. She did receive hemodialysis yesterday, and currently placed back on antiepileptic drugs, 750 mg twice a day. Vital signs: Temperature 96.5, pulse 80, respiratory rate 22, blood pressure 142/82, 97% on 1 liter nasal cannula. Patient responsive today when asked how she is doing. She is still lethargic. Arterial blood gas yesterday was unremarkable. She is answering questions but does not open her eyes this morning. Unable to complete a focal exam. Per nursing, patient does not cooperate with neurologic tests. Vital signs appear to be stable. Manual pressures have been obtained. Remains to be 140 systolic. Ammonia level and glucose appear to be normal. Vital signs: Temperature 96.5, pulse 75, respiratory rate 22, blood pressure 140/68, 97% on 1 liter nasal cannula. Generally, she opens her eyes. She has purposeful movements but does not cooperate with examination and is lethargic. Lungs: Diminished breath sounds but clear to auscultation. No wheezing or rales. Heart: S1, S2. Sinus rhythm. Abdomen is obese, soft, nontender, nondistended. Extremities: No pitting edema. Left foot has no toes, status post amputation. Right foot: No cyanosis or clubbing. LABORATORY DATA: CBC, metabolic panel have been reviewed. IMAGING STUDY: Watershed infarct versus vasculitis. Increase in the watershed area. ASSESSMENT AND PLAN: This is a 55-year-old female, history of end-stage renal disease (on hemodialysis on Tuesday, , Tuesday), coronary artery disease (CAD), hypertension, diabetes, hypothyroidism, hyperlipidemia, history of seizure disorder, peripheral vascular disease, asthma, anxiety, polysubstance abuse, polysubstance use, transmetatarsal amputation and multiple toe amputations on the left foot, left upper extremity fistula, section, cholecystectomy, coronary angioplasty, and femoral stent, presents to the emergency room with a fall and complaints of left hip pain. Patient was found to have acute on chronic renal failure, obtundation and encephalopathy secondary to her opioids and Lyrica. Both of which have been discontinued. Patient's full workup was evaluated with CT of the head, which shows possible watershed infarct. Dr. Quispe was consulted and recommended Depakote twice a day as well as Decadron, MRI of the brain, full supportive care. CURRENT ISSUES: 1. Acute encephalopathy with questionable vasculitis infarct in a watershed area. Defer to Dr. Quispe for further management. Currently on IV Decadron. Neuro checks have been refused by the patient. Continue with full supportive care. Await MRI/MRA brain, keep sbp>130 2. End-stage renal disease. On hemodialysis. Maintenance hemodialysis needs per Dr. Maurice. Avoid nephrotoxins. Renally dose all medications. 3. Hypothyroidism. On Synthroid. 4. Peripheral vascular disease. On Zocor and aspirin. 5. Depression. On Celexa. 6. Chronic pain. Once acute issues are resolved, consult pain management. [facility]
[2016-06-14] MEDS ORDERED: ASPIRIN 300 MG SUPP PR SCH (09:00)
[2016-06-14] MEDS: ADVAIR DISKUS 250/50 INH PWD INH SCH ×2 (09:00→19:47)
[2016-06-14] MEDS: LIDOCAINE 5% OINT 30 GM TOP SCH ×2 (09:24→21:26)
[2016-06-14] MEDS: MAGNESIUM OXIDE 400 MG TAB (MAG-OX) PO SCH (09:25)
[2016-06-14] MEDS: CitaloPRAM (CeleXA) 20 MG TAB PO SCH (09:25)
[2016-06-14] MEDS: MULTIVITAMINS/MINERALS THERAP 1 TAB PO SCH (09:25)
[2016-06-14] MEDS: VALPROATE SOD INJ 750 MG in D5W 50 ML IV SCH ×2 (09:26→21:23)
[2016-06-14] MEDS: PANTOPRAZOLE 40MG TAB (PROTONIX) PO SCH (09:44)
[2016-06-14] MEDS: ASPIRIN 81 MG CHEW TABLET PO SCH (09:44)
[2016-06-14] MEDS ORDERED: SODIUM CHLORIDE 0.9% 1000 ML IV ONE (10:30)
--- NOTE | 2016-06-14 11:08 | REP ---
Portable chest, single AP view: Comparison is 06/10/2016. The lung aviles are clear. The cardiac size is normal The grace, mediastinum, and bony thorax are unremarkable. Impression: Negative portable chest. There is no interval change Signed by Fernando Hernandez MD 06/13/2016 08:48 A
[2016-06-14] MEDS ORDERED: GLUCOSE 4 GM CHEW TABLET PO PRN (11:30)
[2016-06-14] MEDS ORDERED: GLUCAGON FOR INJ 1 MG VIAL (J1610) SC PRN (11:30)
[2016-06-14] MEDS ORDERED: DEXTROSE 50% 50 ML SYRINGE IV PRN (11:30)
[2016-06-14] MEDS ORDERED: oxyCODONE 5MG TAB PO ONE ×2 (11:30→17:00)
[2016-06-14] MEDS: CINACALCET 30 MG TAB (SENSIPAR) PO SCH (11:31)
--- NOTE | 2016-06-14 12:05 | REP ---
NONCONTRAST HEAD CT. HISTORY: Bilateral frontotemporal CVA with small amount of hemorrhage. Obtundation. Follow-up. Comparison CT study is from June 12, 2016. Comparison MRI examination of the brain is from June 13, 2016. FINDINGS: Bone window settings demonstrate an intact bony calvarium. There is heavy vascular calcification in the distal carotid and vertebral arteries. Visualized paranasal sinuses are clear. No intraorbital abnormality is seen. There is mild diffuse atrophy. No there are bilateral watershed distribution infarcts in the occipital and frontoparietal lobes as seen on June 12, 2016. The MR study shows evidence of a small amount of hemorrhagic component. This is not evident by CT criteria. No new area of infarction is seen. No hemorrhage is visible by CT. The findings are essentially unchanged. IMPRESSION: Bilateral watershed distribution infarcts involving the occipital, frontal, and temporal lobes bilaterally. No significant change from June 12, 2016. No hemorrhage is visible by CT criteria. Signed by German Farley MD 06/14/2016 12:17 P
--- NOTE | 2016-06-14 12:23 | REP ---
DUPLEX CAROTID SONOGRAPHY: HISTORY: CVA. FINDINGS: Antegrade flow was observed in both vertebral arteries. RIGHT CAROTID: There is mixed plaquing in the distal common carotid artery on the right side. Extensive mixed plaquing is seen in the bulb, proximal ICA and proximal ECA. Color flow and spectral Doppler interrogation on the right demonstrates systolic velocity elevation in the external carotid artery but normal velocities in the ICA. Velocity Chart Right Carotid: PSV EDV Right CCA 58 cm/s Right ICA 67 cm/s 7 cm/s Right ICA/CCA normal 1.2. IMPRESSION: 16 to 49% category narrowing of the right ICA by Doppler velocity criteria, probably near the upper end of this range. LEFT CAROTID: The left common carotid artery shows mixed plaquing. Mixed plaquing is seen in the bulb, proximal ICA and proximal ECA on the left side. Color flow and spectral Doppler interrogation demonstrates stenotic flow velocities in the external carotid artery but normal velocities in the ICA. Velocity Chart Left Carotid: PSV EDV Left CCA 90 cm/s Left ICA 180 cm/s 10 cm/s Left ECA 264 cm/s Left ICA/CCA ratio normal 1.2. IMPRESSION: 16-49% category narrowing in the left ICA by Doppler velocity criteria. In comparison with the February 01, 2013 prior study done at [facility], internal carotid artery velocities have not increased. Signed by German Farley MD 06/14/2016 01:25 P
[2016-06-14 12:47] LABS: ALBUMIN 3.08 GM/DL (3.29-5.55); ALBUMIN % 52.2 % (55.8-66.1); GAMMA GLOBULIN % 13.2 % (11.1-18.8)
--- NOTE | 2016-06-14 16:30 | REPKIM ---
CLINICAL HISTORY: ESRD with left arm AVF, diabetes and multiple medical comorbidities. Patient needs central venous access for intermediate-term IV meds /antibiotics. PROCEDURE PERFORMED: Right IJ Non-tunneled Nickie Central Venous Catheter Placement INTERVENTIONALIST: Andrews Howell MD MEDICATIONS: Local Lidocaine 2% EBL: 3 mL DEVICE USED: 7F Double Lumen Nickie Catheter Lot#[id number] FLUORO TIME: 0.6 minutes CONSENT: The risks, benefits and alternatives to the procedure were explained to the patient and informed consent was obtained and witnessed. PROCEDURE/FINDINGS: The patient was brought to the interventional radiology suite and placed in the supine position. Time out procedure was performed. The right neck was prepped and draped in a usual sterile fashion. Real time ultrasound was used and permanent image stored. Using ultrasound guidance the right IJ vein was punctured, after infiltration of the skin and deep tissues with local anesthetic. The guidewire was advanced and positioned in the inferior vena cava. Using this access, a double lumen 7-[place] Nickie catheter was inserted. Post procedure chest radiograph showed the tip of the catheter at the cavoatrial junction. The catheter was secured at the skin exit site with 2-0 suture. Each port of the catheter was flushed with saline then locked with heparin (concentration 10 units/cc). A sterile dressing was then applied. The patient tolerated the procedure well with no immediate complications. This procedure was performed using ultrasound and fluoroscopy. Dr. Howell was present. IMPRESSION: 1. Ultrasound of the neck demonstrates patent right IJ vein and compressible. 2. Successful right IJ Nickie catheter placement as discussed above. The catheter is ready for immediate use. cc: Dominique Tucker MD [facility]
[2016-06-14] MEDS: ONDANSETRON 4MG/2ML VIAL (J2405) IV PRN (16:50)
--- NOTE | 2016-06-14 17:28 | IPNPDOC ---
Date/Time Seen The patient was seen on 06/14/16 at 16:57. Progress Note DATE OF ENCOUNTER: 06/14/2016 SUBJECTIVE: Ms. Carter was seen this morning at bedside. Her mentation has improved as she was more lethargic yesterday. She was found to have bilaterals strokes. She is speaking in complete sentences although she states that she has trouble focusing. Her shelter case manager, Shruti, was present in the room with her. No acute complaints of chest pain, shortness of breath, nausea, vomiting, abdominal pain or diarrhea. She is afebrile. OBJECTIVE: Vital Signs Date Time Temp Pulse Resp B/P Pulse Ox O2 Delivery O2 Flow Rate FiO2 06/14/16 16:51 20 06/14/16 16:35 96.2 70 132/84 95 Room Air I&O- Last 24 Hours up to 6 AM 06/14/16 06:00 Intake Total 120 ml Output Total 0 ml Balance 120 ml GENERAL: Lying in bed comfortably, in no acute distress. HEENT: Normocephalic, atraumatic. Extraocular movements are intact. Moist mucosa. NECK: Supple. Jugular veins are not elevated. Trachea is midline. No cervical lymphadenopathy. HEART: Normal S1, S2. Regular rate and rhythm. LUNGS: Clear to auscultation bilaterally. ABDOMEN: Soft, nontender, nondistended. Bowel sounds are present. No rebound, guarding or rigidity. EXTREMITIES: No cyanosis or lower extremity edema. Positive pedal pulses bilaterally. SKIN: Warm and dry. Good skin turgor. No rashes noted. NEURO: No focal deficits. Cranial nerves II-XII are grossly intact. Moving all extremities. LABORATORY DATA: 06/14/16 05:15 Albumin 2.6L, Anion Gap 12, Calcium Level 8.4L, Glomerular Filtration Rate 11.2L , Phosphorus Level 4.8 IMAGING: Left hip x-ray done on 06/11 revealed no fracture, vascular stent. CT of the left hip revealed osteoarthritis, no fracture. MRI of the lumbosacral spine revealed diffuse disc bulge at the L3-4 level with minimal thecal sac compression, minimal central canal stenosis at the L4-5 level secondary to disc bulge, ligamentous and facet hypertrophy, diffuse disc bulge and retrolisthesis at the L5-S1 level, which is not significantly changed from previous study. Head CT on 06/12: Significant progression of symmetric wide bands of parenchymal brain edema involving the frontoparietal and occipitoparietal margins. The progression suggests atypical posterior reversible encephalopathy complicated by infarction, or vasculitis (producing infarction), or watershed infarcts ( from sustained hypotension). No evidence of acute hemorrhage. MRI on 06/13: Acute bilateral temporoparietal lobe infarctions with small hemorrhagic components. MRA on 06/13: No aneurysm or AVM, atherosclerotic disease noted. Carotid US on 06/14: <50% stenosis of bilateral ICA. Head CT on 06/14: Bilateral watershed distribution infarcts involving the occipital, frontal, and temporal lobes bilaterally. No significant change from June 12, 2016. No hemorrhage was visible by CT criteria. ASSESSMENT AND PLAN: 1. End-stage renal disease on hemodialysis Tuesday, and Saturdays. Volume status and electrolytes are stable. Next dialysis session will be tomorrow 06/15. 2. Altered mentation with findings of acute bilateral temporoparietal lobe infarcts. Mentation has improved. She has been seen by neurology and is currently on aspirin and simvastatin. Repeat head CT does not show any visible hemorrhage. 3. Hypertension. Blood pressure medications have been discontinued. Systolic BP have been between 120s-140s today. 4. Hyperparathyroidism and hyperphosphatemia. She continues to be on Sensipar. Renvela was discontinued yesterday due to being lethargic and NPO. This may be resumed tomorrow if she is tolerating oral diet. 5. History of seizure disorder. Her Keppra was changed to Depakote by neurology. GME ATTESTATION GME ATTESTATION My preceptor for this patient encounter was physically present in the building during the encounter and was fully available. As needed, all aspects of the patient interview, examination, medical decision making process, and medical care plan development were reviewed and approved by the preceptor. Preceptor is aware and concurs with the plan as stated in the body of this note and will attest to such by his/her cosignature. LON DUFFY DO Jun 14, 2016 17:28
[2016-06-14] MEDS: SODIUM CHLORIDE 0.9% INJ 10 ML SYR IV PRN (18:36)
--- NOTE | 2016-06-14 19:25 | ECHO ---
DATE OF PROCEDURE: 06/14/2016 REFERRING PHYSICIAN: Dominique Tucker MD INDICATION: Cerebrovascular accident. HEIGHT: 163 cm WEIGHT: 79 kg DIMENSIONS: IVS: 1.0 LV: 5.1 LVPW: 1.0 LA: 3.9 Aorta: 2.8 FINDINGS: The study is of fair and difficult technical quality with limited visualization. Left ventricle is of normal size and likely normal systolic function. I estimate ejection fraction (EF) around 60-65%. Right ventricle is also normal size and systolic function. Both atria are at least mildly enlarged. Aortic valve is trileaflet. It has sclerotic abnormalities but mobility is preserved. There are also mild degenerative abnormalities of mitral valve with mitral annular calcifications. Tricuspid and pulmonic valves appear normal. No pericardial effusion is noted. Inferior vena cava is normal size. Aortic root is normal. Aortic arch and abdominal aorta were not seen. Doppler interrogation reveals no aortic stenosis and trace aortic insufficiency. There is no significant mitral stenosis or insufficiency. There is trace tricuspid insufficiency. Unfortunately quality of TR jet was not sufficient to adequately estimate pulmonary artery pressure. Pulmonic valve is also functionally competent. Mitral inflow pattern and tissue Doppler imaging of mitral annulus reveal grade 1 diastolic dysfunction. CONCLUSIONS: 1. Study is of fair technical quality. 2. Normal left ventricle (LV) size with likely normal LV systolic function and grade 1 diastolic dysfunction. 3. Mild aortic sclerosis resulting in no stenosis and trace insufficiency. 4. Mild degenerative abnormalities of mitral valve, but no mitral stenosis or insufficiency. 5. Trace tricuspid insufficiency. 6. Likely normal central venous pressure but unable to estimate pulmonary artery pressure. COMMENT: Subacute bacterial endocarditis (SBE) prophylaxis is not recommended.
--- NOTE | 2016-06-14 20:27 | IPN ---
DATE OF SERVICE: 06/14/2016 The patient is much more awake after hemodialysis on Tuesday and discontinuation of her Lyrica and Oxy.IR. She continues to complain of generalized pain everywhere. The patient was found to have a watershed infarct, acute bilateral frontoparietal cerebral vascular accident (CVA) on MRI with small hemorrhage. The patient is continued on aspirin per Dr. Quispe to keep the blood pressure 130 at all times. PHYSICAL EXAMINATION VITAL SIGNS: Temperature 96.5, pulse 72, respirations 18, blood pressure 122/78, 94% on room air. LUNGS: Clear to auscultation, no wheezing, rales or rhonchi. HEART: S1, S2, sinus rhythm. ABDOMEN: Soft, nontender, nondistended. Positive bowel sounds. EXTREMITIES: No cyanosis or clubbing. The patient has multiple amputations, the left foot has no toes. The right foot no cyanosis or clubbing. LAB DATA: Imaging studies have been reviewed. ASSESSMENT: 55-year-old female history of end-stage renal disease, hemodialysis Tuesday, , Saturdays, coronary artery disease (CAD), hypertension, diabetes, hypothyroidism, hyperlipidemia, toe amputations, Left fistula, section, cholecystectomy presents with hip pain after being released from rehabilitation in [place]. She was found to have acute on chronic renal failure, obtundation, encephalopathy secondary to opiates and Lyrica. For completeness, CT of the head was performed which showed possible watershed infarct. MRI of the brain confirms bilateral frontoparietal cerebral vascular accident (CVA) in the watershed area. IMPRESSION: 1. Acute cerebral vascular accident (CVA) bilateral frontoparietal with small hemorrhage. Per Dr. Quispe. Continue 162 mg of oral aspirin for now. Continue neuro-checks. I have repeated a ECG today to check for further bleeding. Monitor in progressive care unit (PCU). 2. End-stage renal disease. On hemodialysis. Hemodialysis needs per Dr. Maurice. 3. Hypothyroidism. On Synthroid prophylactically. 4. Peripheral vascular disease. On Zocor. 5. Depression. On Celexa. 6. Chronic pain. Consult pain management. 7. Hypertension. Keep blood pressure above [address] Quispe, therefore will give intravenous bolus 250 normal saline. MTDD
[2016-06-14] MEDS: MONTELUKAST 10 MG TAB PO SCH (21:23)
[2016-06-14] MEDS: SIMVASTATIN 20 MG TAB PO SCH (21:23)
[2016-06-15] VITALS (11 sets, daily range): BP systolic 132–154; BP diastolic 62–92
[2016-06-15] MEDS: SODIUM CHLORIDE 0.9% INJ 10 ML SYR IV SCH ×3 (05:24→22:48)
[2016-06-15] MEDS: CINACALCET 30 MG TAB (SENSIPAR) PO SCH (05:25)
[2016-06-15] MEDS: ASPIRIN 81 MG CHEW TABLET PO SCH (05:26)
[2016-06-15] MEDS: CitaloPRAM (CeleXA) 20 MG TAB PO SCH (05:26)
[2016-06-15] MEDS: MAGNESIUM OXIDE 400 MG TAB (MAG-OX) PO SCH (05:26)
[2016-06-15] MEDS: MULTIVITAMINS/MINERALS THERAP 1 TAB PO SCH (05:26)
[2016-06-15] MEDS: PANTOPRAZOLE 40MG TAB (PROTONIX) PO SCH (05:27)
[2016-06-15 05:47] LABS: MEAN CORPUSCULAR HEMOGLOBIN 27.4 pg (27.0-33.0); MEAN CORPUSCULAR VOLUME 85.6 fl (80.0-96.0); RED CELL DISTRIBUTION WIDTH 15.2 % (11.5-14.5); WHITE BLOOD COUNT 10.4 K/mm3 (4.0-10.0)
[2016-06-15 05:56] LABS: ALBUMIN 2.4 GM/DL (3.2-5.2); CALCIUM LEVEL 7.6 MG/DL (8.5-10.1); CREATININE FOR GFR 4.7 MG/DL (0.55-1.02); GLOMERULAR FILTRATION RATE 10.2 (>51); PHOSPHORUS LEVEL 4.6 MG/DL (2.5-4.9); POTASSIUM SERUM 3.4 MEQ/L (3.5-5.1)
[2016-06-15] MEDS ORDERED: LEVOTHYROXINE 0.05 MG TAB (50 MCG) PO SCH (06:00)
[2016-06-15] MEDS: HumaLOG INSULIN (NovoLOG) PER UNIT SC SCH ×4 (06:58→20:48)
[2016-06-15] MEDS: ADVAIR DISKUS 250/50 INH PWD INH SCH ×2 (08:00→20:00)
[2016-06-15] MEDS: LIDOCAINE 5% OINT 30 GM TOP SCH ×2 (08:51→20:48)
[2016-06-15] MEDS: VALPROATE SOD INJ 750 MG in D5W 50 ML IV SCH ×2 (08:51→20:47)
[2016-06-15] MEDS ORDERED: POTASSIUM CHLORIDE 10 MEQ SR TABLET PO ONE (09:30)
--- NOTE | 2016-06-15 09:58 | REP ---
MRA BRAIN WITHOUT CONTRAST: HISTORY: Unresponsive. 3D [id number] MRI angiography was performed at the level of the [place]. There is no aneurysm or arteriovenous malformation. Mild atherosclerotic disease involves the cavernous and supraclinoid internal carotid arteries. Mild atherosclerotic disease involves the A1 segments of the anterior cerebral arteries, posterior cerebral arteries and left middle cerebral artery trifurcation. Moderate atherosclerotic disease involves the right middle cerebral artery trifurcation. Major intracranial vessels are patent. The left vertebral artery is dominant. IMPRESSION: 1. There is no aneurysm or arteriovenous malformation. 2. Atherosclerotic disease as described above. Signed by Agustin Alfaro MD 06/21/2016 09:23 A
--- NOTE | 2016-06-15 09:59 | REP ---
MRI BRAIN WITHOUT CONTRAST: HISTORY: Unresponsive. COMPARISON: CT 06/12/2016. Large areas of increased signal intensity on diffusion and T2-weighted images are present in the posterior temporal and parietal lobes. These are decreased in signal intensity on ADC images _and are consistent with acute___infarcts. Small hemorrhagic components are present. There is mass effect with partial effacement at the overlying cortical sulci. There is no midline shift. Areas of increased signal intensity on T2-weighted images are present in the periventricular and subcortical white matter and rajani. This represents small vessel ischemic disease. There is no intraparenchymal mass. The ventricular system and cortical sulci are dilated consistent with minimal volume loss. There is no extracerebral collection. The sinuses are clear. IMPRESSION: Acute bilateral temporoparietal lobe infarctions. Small hemorrhagic components are present. There is no midline shift. Signed by Agustin Alfaro MD 06/21/2016 09:26 A
[2016-06-15] MEDS ORDERED: HEPARIN 1,000 UNITS/ML 10ML VIAL (FOR RADIOLOGY& DIALYSIS ONLY) IV ONE (12:45)
[2016-06-15] MEDS ORDERED: LIDOCAINE 1% SDV 5 ML VIAL SQ ONE (12:45)
--- NOTE | 2016-06-15 14:25 | EDDOCDS ---
Physician Documentation [facility] Name: Tamie Carter Age: 55 yrs Sex: Female : 1960 Arrival Date: 06/11/2016 Time: 09:40 Bed 10 Private MD: Tracee Disposition: 06/11/16 14:54 Hospitalization ordered by Kal Campoverde for Inpatient Admission. Preliminary diagnosis is Pain in hip - left S/P fall. - Bed requested for 5 Joshi. - Status is Inpatient Admission. ml6 - Condition is Stable. - Problem is new. - Symptoms have improved. Historical: - Allergies: ACETAMINOPHEN; Erythromycin; Morphine; NSAIDS; peanuts; PENICILLINS; Proventil HFA; - Home Meds: 1. Advair Diskus 250-50 mcg/dose Inhl dsdv 1 puff 2 times per day (Last dose: Unknown) 2. amlodipine 10 mg Oral tab 1 tab once daily (Last dose: Unknown) 3. aspirin 81 mg Oral tab 1 tab once daily (Last dose: Unknown) 4. atenolol 100 mg Oral tab 1 tab twice a day (Last dose: Unknown) 5. atenolol 50 mg Oral tab 50mg at bedtime on dialysis days. 50mg BID on non dialysis days (Last dose: Unknown) 6. Bactroban 2 % Topical crea 3 times per day (Last dose: Unknown) 7. Benadryl 25 mg Oral cap 1 cap Q 6 HR PRN (Last dose: Unknown) 8. Celexa 40 mg Oral tab 1 tab once daily (Last dose: Unknown) 9. citalopram 40 mg Oral tab 1 tab once daily (Last dose: Unknown) 10. clonidine HCl 0.2 mg Oral tab 3 times per day (Last dose: Unknown) 11. Colace 100 mg oral cap 1 cap 2 times per day (Last dose: Unknown) 12. Drisdol 50,000 unit Oral cap 1 cap once wkly (Last dose: Unknown) 13. ergocalciferol (vitamin D2) 50,000 unit oral cap 1 cap once wkly on wednesdays (Last dose: Unknown) 14. insulin lispro 100 unit/mL subcutaneous crtg 16 units nightly (Last dose: Unknown) 15. Lantus 100 unit/mL Sub-Q soln 35 unit (Last dose: Unknown) 16. levetiracetam 500 mg oral tab 1 tab 2 times per day (Last dose: Unknown) 17. levothyroxine 50 mcg Oral tab 1 tab once daily (Last dose: Unknown) 18. losartan 100 mg oral tab 1 tab once daily (Last dose: Unknown) 19. magnesium oxide 400 mg Oral tab twice a day (Last dose: Unknown) 20. Multiple Vitamins oral tab daily (Last dose: Unknown) 21. Nicoderm CQ 21 mg/24 hr transdermal pt24 1 patch once daily (Last dose: Unknown) 22. Novolin R sliding scale Sub-Q three times a day sliding scale (Last dose: Unknown) 23. oxycodone 15 mg Oral TR12 0.5 tab every 6 hours (Last dose: Unknown) 24. OxyContin 10 mg Oral Tb12 as needed (Last dose: Unknown) 25. potassium chloride 20 mEq Oral TbER 1 tab once daily (Last dose: Unknown) 26. pregabalin 100 mg Oral cap daily (Last dose: Unknown) 27. pregabalin 75 mg Oral cap 1 cap 2 times per day (Last dose: Unknown) 28. Renvela 800 mg oral tab 1 tab 3 times per day (Last dose: Unknown) 29. senna 8.6 mg oral cap 2 caps bid (Last dose: Unknown) 30. Sensipar 30 mg oral tab 1 tab once daily (Last dose: Unknown) 31. simvastatin 20 mg Oral tab 1 tab once daily (Last dose: Unknown) 32. Singulair 10 mg Oral tab 1 tab once daily (Last dose: Unknown) 33. tizanidine 4 mg oral tab 1 tab every 8 hours (Last dose: Unknown) 34. Toujeo SoloStar 300 unit/mL (1.5 mL) subcutaneous inpn 50 units at HS (Last dose: Unknown) 35. Xanax 0.5 mg Oral tab 1 tab daily (Last dose: Unknown) 36. Zofran (as hydrochloride) 4 mg Oral tab every 6 hours (Last dose: Unknown) - PMHx: Asthma; back pain; Bipolar disorder; CAD; venetian blind maker brodie renal failure with dialysis; Diabetes - IDDM: uncontrolled; Diabetic Neuropathy; Hypercholesterolemia; Hypertension; Hypothyroidism; Myocardial infarction; PVD; retinopathy; Seizures; - PSHx: muliple toe amputations; Tonsillectomy; ; Cholecystectomy; Angioplasty; femoral stents; transmetatarsal amputation; bypass; toe amputsations left foot; - Social history: Smoking status: Patient states former smoker of tobacco. No barriers to communication noted, Speaks appropriately for age. - Family history: Not pertinent. - : The pt / caregiver states he / she is not on anticoagulants. Home medication list is obtained from the patient. - Exposure Risk Screening:: None identified. Vital Signs: 06/11 09:51 BP 166 / 87; Pulse 72; Resp 18; Temp 96.9(TE); Pulse Ox 99% on R/A; Weight 84.82 kg / ml6 187 lbs (R); Height 5 ft. 4 in. (162.56 cm) (R); Pain 10/10; 14:00 BP 144 / 82; Pulse 70; Resp 16; Temp 98.3(O); Pulse Ox 98% on R/A; Pain 6/10; ml6 18:33 BP 155 / 87; Pulse 68; Resp 18; Pulse Ox 98% on R/A; Pain 0/10; ml6 09:51 Body Mass Index 32.10 (84.82 kg, 162.56 cm) ml6 MDM: 09:49 Hip,AP,LAT to include Pelvis Ordered. EDMS 10:16 Financial registration complete. mm15 10:19 [facility] Payment Agreement was scanned into [employer]oma and attached to record. mm15 10:28 CT Hip Without Contrast Ordered. EDMS 10:48 oxyCODONE-acetaminophen 5 mg-325 mg 2 tabs PO once ordered. sd1 11:02 oxyCODONE 5 mg PO once; 2 tabs ordered. ml6 11:03 Consult: Ems Manager ordered. ml6 11:39 MRI Screening Tool - Place on chart, inform RN ordered. sd1 11:39 CBC with Diff Ordered. EDMS 11:39 MED Profile Ordered. EDMS 11:39 Liver Profile Ordered. EDMS 11:40 -MRI-Spine, Lumbar without contrast Ordered. EDMS 11:42 THYROID STIMULATING HORMONE Ordered. EDMS 12:22 MRI Screening Tool - Place on chart, inform RN complete. ml6 12:27 BED REQUEST+ADM ordered. EDMS 14:22 CBC with Diff Reviewed. sd1 14:22 MED Profile Reviewed. sd1 14:22 Liver Profile Reviewed. sd1 14:22 THYROID STIMULATING HORMONE Reviewed. sd1 14:22 Hip,AP,LAT to include Pelvis Reviewed. sd1 14:22 CT Hip Without Contrast Reviewed. sd1 15:40 PHYSICAL THERAPY EVAL & TREAT ordered. EDMS 15:41 CONSISTENT CARBOHYDRATES ordered. EDMS 16:17 MAGNESIUM LEVEL Ordered. EDMS 17:01 Consult: Ems Manager complete. rb 17:50 Admission / Observation Status ordered. EDMS 06/12 21:54 Other: Hinn letter was scanned into [employer]oma and attached to record. cs Administered Medications: 06/11 11:01 Not Given (patient has allergyy): oxyCODONE-acetaminophen 5 mg-325 mg 2 tabs PO once ml6 11:02 Drug: oxyCODONE 5 mg [oxycodone 5 mg tablet (1 tabs)] Route: PO; ml6 Signatures: Dispatcher [employer] EDAL Claudia Faustin MD MD sd1 Apple Lindquist, PSA PSA rb Denny Smith, PSA PSA Dale Mari RN RN ml6 Ezio Hughes mm15 David Dillon RN RN sa The chart was reviewed and I authenticate all verbal orders and agree with the evaluation and treatment provided.Corrections: (The following items were deleted from the chart) 11:44 11:39 THYROID STIMULATING HORMONE+LAB ordered. EDMS EDMS 16:17 16:07 MAGNESIUM LEVEL ordered. EDMS EDMS 17:43 11:38 IV Saline Lock ordered. sd1 ml6 Attachments: 10:19 [facility] Payment Agreement mm15 Chart Complete MTDD
--- NOTE | 2016-06-15 14:25 | EDDOCDS ---
Physician Documentation [facility] Name: Tamie Carter Age: 55 yrs Sex: Female : 1960 Arrival Date: 06/11/2016 Time: 09:40 Bed 10 Private MD: Tracee Disposition: 06/11/16 14:54 Hospitalization ordered by Kal Campoverde for Inpatient Admission. Preliminary diagnosis is Pain in hip - left S/P fall. - Bed requested for 5 Joshi. - Status is Inpatient Admission. ml6 - Condition is Stable. - Problem is new. - Symptoms have improved. Historical: - Allergies: ACETAMINOPHEN; Erythromycin; Morphine; NSAIDS; peanuts; PENICILLINS; Proventil HFA; - Home Meds: 1. Advair Diskus 250-50 mcg/dose Inhl dsdv 1 puff 2 times per day (Last dose: Unknown) 2. amlodipine 10 mg Oral tab 1 tab once daily (Last dose: Unknown) 3. aspirin 81 mg Oral tab 1 tab once daily (Last dose: Unknown) 4. atenolol 100 mg Oral tab 1 tab twice a day (Last dose: Unknown) 5. atenolol 50 mg Oral tab 50mg at bedtime on dialysis days. 50mg BID on non dialysis days (Last dose: Unknown) 6. Bactroban 2 % Topical crea 3 times per day (Last dose: Unknown) 7. Benadryl 25 mg Oral cap 1 cap Q 6 HR PRN (Last dose: Unknown) 8. Celexa 40 mg Oral tab 1 tab once daily (Last dose: Unknown) 9. citalopram 40 mg Oral tab 1 tab once daily (Last dose: Unknown) 10. clonidine HCl 0.2 mg Oral tab 3 times per day (Last dose: Unknown) 11. Colace 100 mg oral cap 1 cap 2 times per day (Last dose: Unknown) 12. Drisdol 50,000 unit Oral cap 1 cap once wkly (Last dose: Unknown) 13. ergocalciferol (vitamin D2) 50,000 unit oral cap 1 cap once wkly on wednesdays (Last dose: Unknown) 14. insulin lispro 100 unit/mL subcutaneous crtg 16 units nightly (Last dose: Unknown) 15. Lantus 100 unit/mL Sub-Q soln 35 unit (Last dose: Unknown) 16. levetiracetam 500 mg oral tab 1 tab 2 times per day (Last dose: Unknown) 17. levothyroxine 50 mcg Oral tab 1 tab once daily (Last dose: Unknown) 18. losartan 100 mg oral tab 1 tab once daily (Last dose: Unknown) 19. magnesium oxide 400 mg Oral tab twice a day (Last dose: Unknown) 20. Multiple Vitamins oral tab daily (Last dose: Unknown) 21. Nicoderm CQ 21 mg/24 hr transdermal pt24 1 patch once daily (Last dose: Unknown) 22. Novolin R sliding scale Sub-Q three times a day sliding scale (Last dose: Unknown) 23. oxycodone 15 mg Oral TR12 0.5 tab every 6 hours (Last dose: Unknown) 24. OxyContin 10 mg Oral Tb12 as needed (Last dose: Unknown) 25. potassium chloride 20 mEq Oral TbER 1 tab once daily (Last dose: Unknown) 26. pregabalin 100 mg Oral cap daily (Last dose: Unknown) 27. pregabalin 75 mg Oral cap 1 cap 2 times per day (Last dose: Unknown) 28. Renvela 800 mg oral tab 1 tab 3 times per day (Last dose: Unknown) 29. senna 8.6 mg oral cap 2 caps bid (Last dose: Unknown) 30. Sensipar 30 mg oral tab 1 tab once daily (Last dose: Unknown) 31. simvastatin 20 mg Oral tab 1 tab once daily (Last dose: Unknown) 32. Singulair 10 mg Oral tab 1 tab once daily (Last dose: Unknown) 33. tizanidine 4 mg oral tab 1 tab every 8 hours (Last dose: Unknown) 34. Toujeo SoloStar 300 unit/mL (1.5 mL) subcutaneous inpn 50 units at HS (Last dose: Unknown) 35. Xanax 0.5 mg Oral tab 1 tab daily (Last dose: Unknown) 36. 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 No barriers to communication noted, Speaks appropriately for age. - Family history: Not pertinent. - : The pt / caregiver states he / she is not on anticoagulants. Home medication list is obtained from the patient. - Exposure Risk Screening:: None identified. Vital Signs: 06/11 09:51 BP 166 / 87; Pulse 72; Resp 18; Temp 96.9(TE); Pulse Ox 99% on R/A; Weight 84.82 kg / ml6 187 lbs (R); Height 5 ft. 4 in. (162.56 cm) (R); Pain 10/10; 14:00 BP 144 / 82; Pulse 70; Resp 16; Temp 98.3(O); Pulse Ox 98% on R/A; Pain 6/10; ml6 18:33 BP 155 / 87; Pulse 68; Resp 18; Pulse Ox 98% on R/A; Pain 0/10; ml6 09:51 Body Mass Index 32.10 (84.82 kg, 162.56 cm) ml6 MDM: 09:49 Hip,AP,LAT to include Pelvis Ordered. EDMS 10:16 Financial registration complete. mm15 10:19 [facility] Payment Agreement was scanned into [employer] and attached to record. mm15 10:28 CT Hip Without Contrast Ordered. EDMS 10:48 oxyCODONE-acetaminophen 5 mg-325 mg 2 tabs PO once ordered. sd1 11:02 oxyCODONE 5 mg PO once; 2 tabs ordered. ml6 11:03 Consult: Commissioning Specialist ordered. ml6 11:39 MRI Screening Tool - Place on chart, inform RN ordered. sd1 11:39 CBC with Diff Ordered. EDMS 11:39 MED Profile Ordered. EDMS 11:39 Liver Profile Ordered. EDMS 11:40 -MRI-Spine, Lumbar without contrast Ordered. EDMS 11:42 THYROID STIMULATING HORMONE Ordered. EDMS 12:22 MRI Screening Tool - Place on chart, inform RN complete. ml6 12:27 BED REQUEST+ADM ordered. EDMS 14:22 CBC with Diff Reviewed. sd1 14:22 MED Profile Reviewed. sd1 14:22 Liver Profile Reviewed. sd1 14:22 THYROID STIMULATING HORMONE Reviewed. sd1 14:22 Hip,AP,LAT to include Pelvis Reviewed. sd1 14:22 CT Hip Without Contrast Reviewed. sd1 15:40 PHYSICAL THERAPY EVAL & TREAT ordered. EDMS 15:41 CONSISTENT CARBOHYDRATES ordered. EDMS 16:17 MAGNESIUM LEVEL Ordered. EDMS 17:01 Consult: Commissioning Specialist complete. rb 17:50 Admission / Observation Status ordered. EDMS 06/12 21:54 Other: Hinn letter was scanned into [employer] and attached to record. cs Administered Medications: 06/11 11:01 Not Given (patient has allergyy): oxyCODONE-acetaminophen 5 mg-325 mg 2 tabs PO once ml6 11:02 Drug: oxyCODONE 5 mg [oxycodone 5 mg tablet (1 tabs)] Route: PO; ml6 Signatures: Dispatcher [employer] EDOH Claudia Faustin MD MD sd1 Apple Lindquist, PSA PSA rb Denny Smith, PSA PSA Dale Mari RN RN ml6 Ezio Hughes mm15 David Dillon RN RN sa The chart was reviewed and I authenticate all verbal orders and agree with the evaluation and treatment provided.Corrections: (The following items were deleted from the chart) 11:44 11:39 THYROID STIMULATING HORMONE+LAB ordered. EDMS EDMS 16:17 16:07 MAGNESIUM LEVEL ordered. EDMS EDMS 17:43 11:38 IV Saline Lock ordered. sd1 ml6 Attachments: 10:19 [facility] Payment Agreement mm15 Chart Complete MTDD
[2016-06-15] MEDS ORDERED: oxyCODONE 5MG TAB PO ONE (16:30)
--- NOTE | 2016-06-15 17:02 | IPN ---
DATE: 06/15/2016 SUBJECTIVE: The patient is seen and examined near the end of her dialysis session in the dialysis suite. Per nursing staff, the patient is alert and oriented times three, able to follow commands and answer questions in the beginning of dialysis. However, near the end of dialysis, the patient started to have a decrease in mentation. At the time of the encounter, the patient can barely maintain eyes open for more than five seconds. The patient is not able to answer questions, not able to follow commands. Within a few hours after the patient was sent back to her room, the patient started to regain consciousness and complained about a headache and started requesting pain medications. OBJECTIVE: VITAL SIGNS: Temperature is 96.7, pulse is 83, respiratory rate 18, blood pressure 148/92, pulse oximetry is 96% on room air. GENERAL: At the time of the encounter, the patient is not awake and alert. The patient is not oriented. HEENT: Normocephalic, atraumatic. Extraocular motor grossly intact. CARDIOVASCULAR: Positive S1, S2, regular rate. LUNGS: Clear to auscultation bilaterally. No wheezes or rhonchi. ABDOMEN: Soft, nontender, nondistended. Bowel sounds present. EXTREMITIES: No edema. No cyanosis. The patient has multiple amputations. There is no toe of the left foot. LABORATORY DATA: WBC is 10.4, hemoglobin is 13.4, hematocrit 41.8, platelet count is 189. Sodium is 138, potassium 3.4, chloride is 103, carbon dioxide 24, BUN 53, creatinine 4.7, GFR is 10.2, fasting glucose 156, calcium is 7.6, phosphorus 4.6 , albumin is 2.1. ASSESSMENT AND PLAN: 1. Acute cerebrovascular accident, bilateral temporoparietal lobes with small hemorrhages. Neurologist consulted. The patient is on aspirin 162 mg daily. Continue with neurologic checks. The patient will have EEG per neurology's recommendation. 2. End-stage renal disease, on hemodialysis. Sports Fitness And Wellness Director consulted. The patient had hemodialysis today. 3. Hypothyroidism. Patient had synthroid conversion from IV to PO previously. Larger than expected dose of synthroid was given to the patient during the conversion process. Will observe for possible side-effects. Will observe patient on cardiac telemetry. Patient is on atenolol currently. 4. Acute mental status changes. May be due to her acute stroke and the patient's clinical presentation is also complicated by her significant narcotic use. At home, the patient has been taking oxycodone 15 mg by mouth twice a day as needed , oxycodone 7.5 mg by mouth twice a day, and Lyrica 70 mg by mouth daily. In the emergency room, Narcan was given and the patient's mentation showed improvement. Therefore, the patient's Lyrica and oxycodone have been on hold. The patient did complain about intermittent pain and the patient will get a reduced dose of oxycodone three times a day. Pain management is consulted. The patient's main complaint is the left hip pain where she had a fall. The patient also complained about chronic back pain and a headache. CT of the left hip was performed and there is no fracture. MRI of the lumbar spine showed diffuse disc bulging with minimal thecal sac compression. MRI of the brain showed acute stroke. 5. Peripheral vascular disease, on Zocor. 6. Depression, on Celexa. 7. Chronic pain. The patient is on significant pain medication at home. It seems like the patient may be experiencing adverse effect from narcotic overuse. We will be cautious with the pain medication use for this patient. Pain management is consulted. 8. Hypertension. We will keep the blood pressure above [address] Quispe's recommendations. We will given IV fluid as needed to keep the blood pressure above the target goal. 9. Deep vein thrombosis (DVT) prophylaxis, on thromboembolic-deterrent stockings (TEDS) and sequential compression device. [facility]
[2016-06-15] MEDS: SIMVASTATIN 20 MG TAB PO SCH (20:47)
[2016-06-15] MEDS: MONTELUKAST 10 MG TAB PO SCH (20:47)
--- NOTE | 2016-06-15 21:37 | IPNPDOC ---
Date/Time Seen The patient was seen on 06/15/16 at 21:24. Progress Note DATE OF ENCOUNTER: 06/15/2016 SUBJECTIVE: Ms. Carter was seen this morning during hemodialysis. Her mentation has not yet returned to baseline but it appears improved. She was a little agitated during dialysis. She reported a headache and some nausea this morning. Repeat head CT done yesterday did not show any bleed. No other complaints of chest pain, shortness of breath, vomiting, abdominal pain or diarrhea. No fevers or chills. OBJECTIVE: Vital Signs Date Time Temp Pulse Resp B/P Pulse Ox O2 Delivery O2 Flow Rate FiO2 06/15/16 20:26 96.2 76 18 144/76 98 Room Air I&O- Last 24 Hours up to 6 AM 06/15/16 06:00 Intake Total 2577.5 ml Output Total 0 ml Balance 2577.5 ml GENERAL: Lying in bed comfortably, in no acute distress. HEENT: Normocephalic, atraumatic. Extraocular movements are intact. Moist mucosa. NECK: Supple. Jugular veins are not elevated. No cervical lymphadenopathy. HEART: Normal S1, S2. Regular rate and rhythm. LUNGS: Clear to auscultation bilaterally. ABDOMEN: Soft, nontender, nondistended. Bowel sounds are present. No rebound, guarding or rigidity. EXTREMITIES: No cyanosis or lower extremity edema. Positive pedal pulses bilaterally. SKIN: Warm and dry. Good skin turgor. No rashes noted. NEURO: No focal deficits. Moving all extremities. LABORATORY DATA: 06/15/16 05:20 IMAGING: Left hip x-ray done on 06/11 revealed no fracture, vascular stent. CT of the left hip revealed osteoarthritis, no fracture. MRI of the lumbosacral spine revealed diffuse disc bulge at the L3-4 level with minimal thecal sac compression, minimal central canal stenosis at the L4-5 level secondary to disc bulge, ligamentous and facet hypertrophy, diffuse disc bulge and retrolisthesis at the L5-S1 level, which is not significantly changed from previous study. Head CT on 06/12: Significant progression of symmetric wide bands of parenchymal brain edema involving the frontoparietal and occipitoparietal margins. The progression suggests atypical posterior reversible encephalopathy complicated by infarction, or vasculitis (producing infarction), or watershed infarcts ( from sustained hypotension). No evidence of acute hemorrhage. MRI on 06/13: Acute bilateral temporoparietal lobe infarctions with small hemorrhagic components. MRA on 06/13: No aneurysm or AVM, atherosclerotic disease noted. Carotid US on 06/14: <50% stenosis of bilateral ICA. Head CT on 06/14: Bilateral watershed distribution infarcts involving the occipital, frontal, and temporal lobes bilaterally. No significant change from June 12, 2016. No hemorrhage was visible by CT criteria. ASSESSMENT AND PLAN: 1. End-stage renal disease on hemodialysis Tuesday, and Saturdays. She is being dialyzed today, goal is to remove 2 liters. Volume status is stable. 2. Altered mentation with findings of acute bilateral temporoparietal lobe infarcts. Mentation has improved. She has been seen by neurology and is currently on aspirin and simvastatin. Repeat head CT does not show any visible hemorrhage. 3. Hypertension. Blood pressure is stable. She is not on any antihypertensives. 4. Hyperparathyroidism and hyperphosphatemia. She continues to be on Sensipar. Renvela was held until she is tolerating a full diet. 5. History of seizure disorder. She has been changed to Depakote by neurology. EEG pending. GME ATTESTATION GME ATTESTATION My preceptor for this patient encounter was physically present in the building during the encounter and was fully available. As needed, all aspects of the patient interview, examination, medical decision making process, and medical care plan development were reviewed and approved by the preceptor. Preceptor is aware and concurs with the plan as stated in the body of this note and will attest to such by his/her cosignature. LON DUFFY DO Jun 15, 2016 21:37
[2016-06-16] VITALS (10 sets, daily range): BP systolic 120–198; BP diastolic 72–108; PULSE 77
[2016-06-16] MEDS: SODIUM CHLORIDE 0.9% INJ 10 ML SYR IV SCH ×3 (05:26→22:24)
[2016-06-16] MEDS ORDERED: LEVOTHYROXINE 0.05 MG TAB (50 MCG) PO SCH (06:00)
[2016-06-16 06:15] LABS: MEAN CORPUSCULAR HEMOGLOBIN 27.6 pg (27.0-33.0); MEAN CORPUSCULAR HGB CONC 32.1 g/dl (32.0-36.5); MEAN CORPUSCULAR VOLUME 85.9 fl (80.0-96.0); RED CELL DISTRIBUTION WIDTH 13.8 % (11.5-14.5); WHITE BLOOD COUNT 7.9 K/mm3 (4.0-10.0)
[2016-06-16 06:48] LABS: ALBUMIN 2.7 GM/DL (3.2-5.2); CALCIUM LEVEL 8.4 MG/DL (8.5-10.1); CREATININE FOR GFR 3.53 MG/DL (0.55-1.02); GLOMERULAR FILTRATION RATE 14.2 (>51); PHOSPHORUS LEVEL 3.3 MG/DL (2.5-4.9); POTASSIUM SERUM 4.1 MEQ/L (3.5-5.1)
[2016-06-16] MEDS: ADVAIR DISKUS 250/50 INH PWD INH SCH ×2 (07:29→19:52)
[2016-06-16] MEDS: PANTOPRAZOLE 40MG TAB (PROTONIX) PO SCH (08:55)
[2016-06-16] MEDS: CitaloPRAM (CeleXA) 20 MG TAB PO SCH (08:55)
[2016-06-16] MEDS: MULTIVITAMINS/MINERALS THERAP 1 TAB PO SCH (08:55)
[2016-06-16] MEDS: ASPIRIN 81 MG CHEW TABLET PO SCH (08:55)
[2016-06-16] MEDS: CINACALCET 30 MG TAB (SENSIPAR) PO SCH (08:55)
[2016-06-16] MEDS: HumaLOG INSULIN (NovoLOG) PER UNIT SC SCH ×4 (08:55→21:00)
[2016-06-16] MEDS: VALPROATE SOD INJ 750 MG in D5W 50 ML IV SCH (08:56)
[2016-06-16] MEDS: LIDOCAINE 5% OINT 30 GM TOP SCH ×2 (08:56→22:22)
[2016-06-16] MEDS: MAGNESIUM OXIDE 400 MG TAB (MAG-OX) PO SCH (09:00)
[2016-06-16] MEDS: SODIUM CHLORIDE 0.9% INJ 10 ML SYR IV PRN ×2 (10:00→13:00)
[2016-06-16 10:13] LABS: FREE T4 1.32 NG/DL (0.76-1.46)
[2016-06-16] MEDS ORDERED: SODIUM CHLORIDE 0.9% 1000 ML IV ONE (10:15)
[2016-06-16] MEDS: LOSARTAN 50 MG TAB PO SCH (10:30)
[2016-06-16] MEDS: ATENOLOL 25 MG TAB PO SCH ×2 (10:30→22:20)
--- NOTE | 2016-06-16 13:04 | IPNPDOC ---
Date/Time Seen The patient was seen on 06/16/16 at 12:56. Progress Note DATE OF ENCOUNTER: 06/16/2016 SUBJECTIVE: Ms. Carter was seen this morning at bedside. She reported headache this morning. She also reported muscle cramps in her lower extremities. She had hemodialysis yesterday where 2000 mL of fluid was removed. She denies nausea, vomiting, diarrhea or abdominal pain. No complaints of chest pain, shortness of breath. No fevers or chills. OBJECTIVE: Vital Signs Date Time Temp Pulse Resp B/P Pulse Ox O2 Delivery O2 Flow Rate FiO2 06/16/16 12:00 96.7 83 20 182/96 99 Room Air I&O- Last 24 Hours up to 6 AM 06/16/16 06:00 Intake Total 830 ml Output Total 2000 ml Balance -1170 ml GENERAL: Lying in bed comfortably, in no acute distress. HEENT: Normocephalic, atraumatic. Extraocular movements are intact. Moist mucosa. NECK: Supple. Jugular veins are not elevated. No cervical lymphadenopathy. HEART: Normal S1, S2. Regular rate and rhythm. LUNGS: Clear to auscultation bilaterally. ABDOMEN: Soft, nontender, nondistended. Bowel sounds are present. No rebound, guarding or rigidity. EXTREMITIES: No cyanosis or lower extremity edema. Positive pedal pulses bilaterally. SKIN: Warm and dry. Good skin turgor. No rashes noted. NEURO: No focal deficits. LABORATORY DATA: 06/16/16 05:38 IMAGING: Left hip x-ray done on 06/11 revealed no fracture, vascular stent. CT of the left hip revealed osteoarthritis, no fracture. MRI of the lumbosacral spine revealed diffuse disc bulge at the L3-4 level with minimal thecal sac compression, minimal central canal stenosis at the L4-5 level secondary to disc bulge, ligamentous and facet hypertrophy, diffuse disc bulge and retrolisthesis at the L5-S1 level, which is not significantly changed from previous study. Head CT on 06/12: Significant progression of symmetric wide bands of parenchymal brain edema involving the frontoparietal and occipitoparietal margins. The progression suggests atypical posterior reversible encephalopathy complicated by infarction, or vasculitis (producing infarction), or watershed infarcts ( from sustained hypotension). No evidence of acute hemorrhage. MRI on 06/13: Acute bilateral temporoparietal lobe infarctions with small hemorrhagic components. MRA on 06/13: No aneurysm or AVM, atherosclerotic disease noted. Carotid US on 06/14: <50% stenosis of bilateral ICA. Head CT on 06/14: Bilateral watershed distribution infarcts involving the occipital, frontal, and temporal lobes bilaterally. No significant change from June 12, 2016. No hemorrhage was visible by CT criteria. ASSESSMENT AND PLAN: 1. End-stage renal disease on hemodialysis Tuesday, and Saturdays. She was dialyzed yesterday. Volume status is stable. Continue with normal schedule, next dialysis will be tomorrow 06/17. 2. Muscle cramps, possibly due to receiving hemodialysis yesterday. We will give her a 300ml fluid bolus and see if this improves her symptoms. 3. Altered mentation with findings of acute bilateral temporoparietal lobe infarcts. Mentation has improved. She has been seen by neurology and is currently on aspirin and simvastatin. Repeat head CT does not show any visible hemorrhage. Hypercoagulable workup pending. MRA did not show any aneurysm or AVM , carotid ultrasound did not show significant stenosis. Echocardiogram did not show any acute findings to explain her CVA. 4. Hypertension. Blood pressure was elevated this morning. She is being restarted on some of her home medications, at a lower dose. This can be titrated up to her regular home dose as needed. 5. Hyperparathyroidism and hyperphosphatemia. She continues to be on Sensipar. Renvela was held until she is tolerating a full diet. 6. History of seizure disorder. She has been changed to Depakote by neurology. Keppra level still pending. EEG pending. GME ATTESTATION GME ATTESTATION My preceptor for this patient encounter was physically present in the building during the encounter and was fully available. As needed, all aspects of the patient interview, examination, medical decision making process, and medical care plan development were reviewed and approved by the preceptor. Preceptor is aware and concurs with the plan as stated in the body of this note and will attest to such by his/her cosignature. LON DUFFY DO Jun 16, 2016 13:04
[2016-06-16 13:25] LABS: MAGNESIUM LEVEL 2.6 MG/DL (1.8-2.4)
[2016-06-16 14:19] LABS: PROTEIN C ANTIGEN 107 % (60-150); PROTEIN S ANTIGEN FREE 142 % (57-157); PROTEIN S ANTIGEN TOTAL 168 % (60-150)
--- NOTE | 2016-06-16 18:30 | IPN ---
DATE: 06/16/2016 SUBJECTIVE: The patient is seen and examined in the room today. The patient has continued having intermittent spasms, each episode lasting for a few minutes. Without any intervention, the patient's spasm will resolve and the patient feels very exhausted. During that duration, the patient is not able to follow commands or answer any questions. The patient is awake. The patient intermittently complains about headache. When asking details about her headache, she says it is all over her head, but the patient cannot explain the quality or provide any other details regarding her headache, and each episode lasting for a few seconds to a few minutes, and will resolve spontaneously. No overnight events are reported. OBJECTIVE: VITAL SIGNS: Temperature is 96.4, pulse is 82, respirations 22, blood pressure 148/104, pulse oximetry 97% on room air. GENERAL: Intermittently the patient shows signs of acute distress from the intermittent muscle spasm and headache. Patient is unable to provide detail regarding the discomfort. Unable to assess orientation. HEENT: Normocephalic, atraumatic. Extraocular motor grossly intact. CARDIOVASCULAR: Positive S1, S2. Regular rate. LUNGS: Clear to auscultation bilaterally. No wheezes or rhonchi. ABDOMEN: Soft, nontender, nondistended. Bowel sounds present. EXTREMITIES: Intermittent muscle spasm, unable to palpate mainly on the upper extremities bilaterally. No lower extremity edema. No sign of cyanosis. The patient has multiple amputations on lower extremities; no toe on the left foot. LABORATORY DATA: WBC 7.9, hemoglobin 15.1, hematocrit 47.1, platelet count 174. Sodium 139, potassium 4.1, chloride 103, carbon dioxide 25, BUN 30, creatinine 3.53, GFR is 14.2, fasting glucose 230, calcium 8.4, phosphorus 3.3, magnesium 2.6, albumin 2.7. TSH is 0.3, free T4 is 1.35. ASSESSMENT AND PLAN: 1. Acute cerebrovascular accident of bilateral temporoparietal lobes with small hemorrhage. Neurology has been consulted. We appreciate their input. Per recommendation, the patient has been on aspirin 162 mg. We will continue with neurologic checks. The patient had an electroencephalogram (EEG) today. We are waiting for the results. 2. End-stage renal disease on hemodialysis. The patient has a Tuesday, , and Tuesday schedule. We appreciate nephrology's assistance. 3. Hypothyroidism. Continue Synthroid. The patient has a normal Free T4. 4. Acute mental status changes. May be due to acute stroke or possibly due to her previous narcotic use. The patient's oxycodone and the Lyrica have been on hold. The patient is only given intermittent oxycodone in case of severe pain. The patient has an incident where she woke up right away with the Narcan. Pain management is consulted. Appreciate their input. 5. Peripheral vascular disease on Zocor. 6. Depression on Celexa. 7. Chronic pain. Patient complained about back pain where the MRI showed that the patient has multiple diffuse disc bulging with minimal thecal sac compression. 8. Intermittent muscular spasms. Possibly related to the patient's acute stroke. 9. Hypertension. Will keep the blood pressure above 130 per neurology recommendations. Currently, the patient has intermittent measurement of hypertension. The blood pressure systolic can be greater than 180, diastolic greater than 100; however, it is suspected that those measurements were taken while patient had muscle spasm. We interpret the measurements with caution. 10. Deep venous thrombosis (DVT) prophylaxis. The patient is on thromboembolism deterrent stockings (TEDs), sequential compression device. MTDD
[2016-06-16] MEDS ORDERED: LABETALOL 100 MG TAB PO ONE (19:30)
[2016-06-16] MEDS ORDERED: LABETALOL 100 MG TAB PO SCH (21:00)
[2016-06-16] MEDS: MONTELUKAST 10 MG TAB PO SCH (22:20)
[2016-06-16] MEDS: SIMVASTATIN 20 MG TAB PO SCH (22:21)
[2016-06-16] MEDS: VALPROATE SOD INJ 500 MG in D5W 50 ML IV SCH (22:23)
[2016-06-17] VITALS (10 sets, daily range): BP systolic 126–160; BP diastolic 52–94; PULSE 73–86
[2016-06-17] MEDS: SODIUM CHLORIDE 0.9% INJ 10 ML SYR IV SCH ×3 (05:19→22:15)
[2016-06-17] MEDS: ONDANSETRON 4MG/2ML VIAL (J2405) IV PRN (05:24)
[2016-06-17 06:05] LABS: MEAN CORPUSCULAR HEMOGLOBIN 27.8 pg (27.0-33.0); MEAN CORPUSCULAR HGB CONC 32.6 g/dl (32.0-36.5); MEAN CORPUSCULAR VOLUME 85.4 fl (80.0-96.0); RED CELL DISTRIBUTION WIDTH 13.7 % (11.5-14.5); WHITE BLOOD COUNT 7.7 K/mm3 (4.0-10.0)
[2016-06-17 06:18] LABS: ALBUMIN 2.5 GM/DL (3.2-5.2); CALCIUM LEVEL 8.2 MG/DL (8.5-10.1); CREATININE FOR GFR 3.83 MG/DL (0.55-1.02); GLOMERULAR FILTRATION RATE 12.9 (>51); PHOSPHORUS LEVEL 3.1 MG/DL (2.5-4.9); POTASSIUM SERUM 3.8 MEQ/L (3.5-5.1)
[2016-06-17] MEDS: CINACALCET 30 MG TAB (SENSIPAR) PO SCH (06:25)
[2016-06-17] MEDS: CitaloPRAM (CeleXA) 20 MG TAB PO SCH (06:26)
[2016-06-17] MEDS: MAGNESIUM OXIDE 400 MG TAB (MAG-OX) PO SCH (06:26)
[2016-06-17] MEDS: MULTIVITAMINS/MINERALS THERAP 1 TAB PO SCH (06:26)
[2016-06-17] MEDS: ASPIRIN 81 MG CHEW TABLET PO SCH (06:26)
[2016-06-17] MEDS: PANTOPRAZOLE 40MG TAB (PROTONIX) PO SCH (06:27)
[2016-06-17] MEDS: ATENOLOL 25 MG TAB PO SCH ×2 (06:28→22:14)
[2016-06-17] MEDS: VALPROATE SOD INJ 500 MG in D5W 50 ML IV SCH ×2 (06:29→22:13)
[2016-06-17] MEDS: LOSARTAN 50 MG TAB PO SCH (06:29)
[2016-06-17] MEDS: LIDOCAINE 5% OINT 30 GM TOP SCH ×2 (06:30→22:14)
[2016-06-17] MEDS: ADVAIR DISKUS 250/50 INH PWD INH SCH ×2 (07:45→20:52)
[2016-06-17] MEDS: HumaLOG INSULIN (NovoLOG) PER UNIT SC SCH ×4 (08:08→22:30)
[2016-06-17] MEDS ORDERED: LABETALOL 100 MG TAB PO SCH (09:00)
--- NOTE | 2016-06-17 10:12 | EEG ---
DATE OF PROCEDURE: 06/17/2016 REFERRING PHYSICIAN: Dr. Dominique Tucker DIAGNOSIS: Episode of unresponsive, rule out seizure. EEG NUMBER: [id number] CLINICAL HISTORY: The patient is a 55-year-old woman who was admitted at [facility] due to episodes of lethargy and inability to follow commands. She is currently taking Depakote, Protonix, aspirin, atenolol, losartan, simvastatin. TECHNICAL DESCRIPTION: This digital EEG was recorded by 21 scalp, ear and two EKG electrodes and was reviewed in bipolar and referential montages following reformatting in 10-20 [employer]de [employer] System. INTERPRETATION: The patient was noted to be in awake and drowsy states during this EEG. Resting awake background consisted of 5 - 6 Hz theta activity measuring 15 - 40 microvolts in amplitude. Excessive muscle artifact was seen in bilateral frontal and temporal head regions. Stage II sleep was recorded and was symmetric bilaterally. Hyperventilation could not be performed. Photic stimulation remained unremarkable. EKG revealed normal sinus rhythm. No focal, lateralizing or epileptiform abnormalities were seen. CONCLUSION: This EEG in awake, drowsy states, stage II sleep is abnormal due to presence of generalized slowing and disorganization of background consistent with nonspecific diffuse cerebral dysfunction such as seen in encephalopathy due to multiple potential causes, including toxic, metabolic, infectious, medication related or multifocal structural abnormalities. No epileptiform abnormalities were seen. Clinical correlation is recommended.
[2016-06-17] MEDS ORDERED: LIDOCAINE 1% SDV 5 ML VIAL SC ONE (12:00)
--- NOTE | 2016-06-17 18:04 | IPNPDOC ---
Date Seen The patient was seen on 06/17/16. Progress Note DATE OF ENCOUNTER: 06/17/2016 SUBJECTIVE: Ms. Carter was seen this morning during hemodialysis. She reported headache and some mild nausea. She also appears to be agitated during her dialysis session. She reported muscle cramps in her lower extremities yesterday and a 300 mL fluid bolus was given. Muscle cramps are improved. She denies vomiting, diarrhea or abdominal pain. No complaints of chest pain, shortness of breath, lightheadedness or dizziness. No fevers or chills. OBJECTIVE: Vital Signs Date Time Temp Pulse Resp B/P Pulse Ox O2 Delivery O2 Flow Rate FiO2 06/17/16 12:52 Room Air 06/17/16 12:51 97.0 72 18 126/56 97 I&O- Last 24 Hours up to 6 AM 06/17/16 06:00 Intake Total 1370 ml Output Total 0 ml Balance 1370 ml GENERAL: Lying in bed comfortably, in no acute distress. Seems a bit restless. HEENT: Normocephalic, atraumatic. Extraocular movements are intact. Moist mucosa. NECK: Supple. Jugular veins are not elevated. No cervical lymphadenopathy. HEART: Normal S1, S2. Regular rate and rhythm. LUNGS: Good air movement bilaterally. No rhonchi or wheezing appreciated. ABDOMEN: Soft, nontender, nondistended. Bowel sounds are present. No rebound, guarding or rigidity. EXTREMITIES: No cyanosis or lower extremity edema. Positive pedal pulses bilaterally. SKIN: Warm and dry. Good skin turgor. No rashes noted. NEURO: Patient does not seem to be moving her extremities. LABORATORY DATA: 06/17/16 05:51 IMAGING: Left hip x-ray done on 06/11 revealed no fracture, vascular stent. CT of the left hip revealed osteoarthritis, no fracture. MRI of the lumbosacral spine revealed diffuse disc bulge at the L3-4 level with minimal thecal sac compression, minimal central canal stenosis at the L4-5 level secondary to disc bulge, ligamentous and facet hypertrophy, diffuse disc bulge and retrolisthesis at the L5-S1 level, which is not significantly changed from previous study. Head CT on 06/12: Significant progression of symmetric wide bands of parenchymal brain edema involving the frontoparietal and occipitoparietal margins. The progression suggests atypical posterior reversible encephalopathy complicated by infarction, or vasculitis (producing infarction), or watershed infarcts ( from sustained hypotension). No evidence of acute hemorrhage. MRI on 06/13: Acute bilateral temporoparietal lobe infarctions with small hemorrhagic components. MRA on 06/13: No aneurysm or AVM, atherosclerotic disease noted. Carotid US on 06/14: <50% stenosis of bilateral ICA. Head CT on 06/14: Bilateral watershed distribution infarcts involving the occipital, frontal, and temporal lobes bilaterally. No significant change from June 12, 2016. No hemorrhage was visible by CT criteria. ASSESSMENT AND PLAN: 1. End-stage renal disease on hemodialysis Tuesday, and Saturdays. She is being dialyzed today, with the goal of removing 2 liters. Volume status and electrolytes are stable. Continue with normal maintenance hemodialysis schedule. 2. Muscle cramps. Improved after 300ml fluid bolus yesterday. 3. Altered mentation with findings of acute bilateral temporoparietal lobe infarcts. Mentation has improved. She has been seen by neurology and is currently on aspirin and simvastatin. Repeat head CT does not show any visible hemorrhage. Hypercoagulable workup unrevealing. MRA did not show any aneurysm or AVM, carotid ultrasound did not show significant stenosis. Echocardiogram did not show any acute findings to explain her CVA. 4. Hypertension. Blood pressure is stable. She is on losartan and atenolol. 5. Hyperparathyroidism and hyperphosphatemia. She continues to be on Sensipar. Renvela was held until she is tolerating a full diet. 6. History of seizure disorder. She has been changed to Depakote by neurology. Keppra level was within normal. EEG did not show any epileptiform abnormalities. 7. Deconditioning. She will need to continue working with physical therapy. GME ATTESTATION GME ATTESTATION My preceptor for this patient encounter was physically present in the building during the encounter and was fully available. As needed, all aspects of the patient interview, examination, medical decision making process, and medical care plan development were reviewed and approved by the preceptor. Preceptor is aware and concurs with the plan as stated in the body of this note and will attest to such by his/her cosignature. ATTENDING NOTE Nephrology: Pt was examined during HD today AM. She was agitated during HD. However she was hemodynamically stable. OK to give Oxycodon for pain. UF goal 2L and No Heparin with HD because of recent CVA. LON DUFFY DO Jun 17, 2016 18:04 KAI MORRIS MD Jun 17, 2016 22:23
--- NOTE | 2016-06-17 18:31 | CR.PDOC ---
[facility] Pain Clinic Consultation General Date of Consultation: 06/17/16 Consultation Report For: IVY OLIVEIRA MD Chief Complaint The patient is a 55-year-old female admitted with a reason for visit of Hip Pain. Pain management is asked to see for further evaluation and recommendations for management of her pain History of Present Illness Tamie Carter is a 55-year-old female who is known to our practice having been seen both here in the clinic several years ago and on multiple hospitalizations. Tamie was readmitted to the hospital on 06/11/2016. She has a long-standing history of diabetes mellitus and end-stage renal disease currently on hemodialysis. She had been on oxycodone prescribed by her primary care provider prior to admission. At the time of her admission her oxycodone dosing was decreased to 15 mg twice a day but she did have an episode of unresponsiveness for which she had to be given Narcan. During this admission she has had generalized weakness of her extremities well as episodes of altered mental status and was found to have a cerebrovascular watershed event. Tamie continues to report which she now states is generalized. She states that she is unable to do much movement of any of her extremities. Home Medications Scheduled (Alta Barriga) 300 Unit/Ml Inj 50 UNIT SC QHS (Reported) Aspirin (Aspirin 81) 81 Mg Tab 81 MG PO DAILY (Reported) Atenolol (Atenolol) 50 Mg Tab 50 MG PO 3XW (Reported) BID ON TUE, TUE, TUE Atenolol (Atenolol) 50 Mg Tab 50 MG PO 3XW (Reported) QHS ON , SAT Cinacalcet Hydrochloride (Sensipar) 30 Mg Tab 30 MG PO DAILY (Reported) Citalopram Hydrobromide (Citalopram Hydrobromide) 40 Mg Tab 40 MG PO DAILY ( Reported) Clonidine Hydrochloride (Clonidine HCl) 0.2 Mg Tab 0.2 MG PO 4XWK (Reported) TID ON TUE, TUE, TUE, TUE Clonidine Hydrochloride (Clonidine HCl) 0.2 Mg Tab 0.2 MG PO 3XW (Reported) @ 1600 ON , , SAT Ergocalciferol (Vitamin D) 50,000 Unit Cap 50,000 UNIT PO 1XWK (Reported) WEDNESDAYS Insulin Human Lispro (Humalog) 1 Units/0.01 Ml Inj 16 UNITS SC AC (Reported) Levetiracetam (Keppra) 500 Mg Tab 500 MG PO BID (Reported) Levothyroxine Sodium (Levoxyl) 50 Mcg Tab 50 MCG PO DAILY (Reported) Losartan Potassium (Losartan Potassium) 100 Mg Tab 100 MG PO DAILY (Reported) Magnesium Oxide (Magnesium Oxide 400) 400 Mg Tab 400 MG PO DAILY (Reported) Montelukast Sodium (Singulair) 10 Mg Tab 10 MG PO QHS (Reported) Multivitamins *[facility] STOCKED* (Thera M Plus *[facility] STOCKED*) 1 Tab Tab 1 TAB PO DAILY (Reported) Nicotine (Nicotine Step 1) 21 Mg/24 Hr Dis 21 MG TD DAILY (Reported) DOES NOT CURRENTLY HAVE PATCH ON Pregabalin (Lyrica) 75 Mg Cap 75 MG PO DAILY (Reported) Salmeterol/Fluticasone (Advair Diskus 250-50 Mcg/Dose) 14 Puff/Inhaler Aerp 1 PUFF INH BID (Reported) Sevelamer Carbonate (Renvela) 800 Mg Tab 2,400 MG PO WM (Reported) Simvastatin (Simvastatin) 20 Mg Tab 20 MG PO QHS (Reported) Scheduled PRN Alprazolam (Xanax) 0.5 Mg Tab 0.5 MG PO DAILY PRN PRN ANXIETY (Reported) Diphenhydramine HCl (Benadryl Allergy) 25 Mg Cap 25 MG PO Q6H PRN PRN ALLERGIES / ITCHING (Reported) Docusate Sodium (Colace) 100 Mg Cap 100 MG PO BID PRN PRN CONSTIPATION (Reported ) Oxycodone Hcl (Oxycodone HCl) 15 Mg Tab 15 MG PO BID PRN PRN PAIN (Reported) Oxycodone Hcl (Oxycodone HCl) 15 Mg Tab 7.5 MG PO BID PRN PRN PAIN (Reported) Tizanidine Hydrochloride (Tizanidine HCl) 4 Mg Cap 4 MG PO Q8H PRN PRN SPASMS ( Reported) Allergies Coded Allergies: Acetaminophen (Verified Allergy, Severe, BLEEDING PER PATIENT, 12/04/14) Erythromycin (Verified Allergy, Severe, HIVES ANAPHYLAXIS, 08/18/12) Peanut (Verified Allergy, Intermediate, PEANUT BUTTER - HIVES, 04/21/12) Penicillins (Verified Allergy, Intermediate, HIVES AND SWELLING, 05/28/14) Albuterol (Unverified Allergy, Unknown, hives, 09/07/14) NSAIDs (Unverified Allergy, Unknown, 02/18/15) Past Medical History Medical History End-stage renal disease on hemodialysis Hypertension Diabetes mellitus Cerebral vascular event next coronary artery disease next history of seizures peripheral vascular disease Asthma Hypothyroidism Hyperlipidemia Anxiety History of pain medication misuse Family History Family History Noncontributory Social History Social History States lives alone. Review of Systems Subjective Constitutional: Reports: chills, weakness HEENT: Denies: head aches, hearing problems, vision problems Skin: Reports: breakdown (history of peripheral vascular and neuropathic changes to the feet with subsequent amputation of the toes), Denies: lesions, rash Pulmonary: Denies: cough, dyspnea Cardiovascular: Reports: light headedness, Denies: chest pain, palpitations Gastrointestinal: Reports: constipation, normal bowel movements, Denies: loss of bowel control Genitourinary: Reports: other (on dialysis) Endocrine: Reports: Diabetes mellitus, Heat Intolerance Musculoskeletal: Reports: muscle pain, other (reports hip pain.), spasms Neurological: Reports: numbness, seizures, weakness, Denies: headache, migraines, tremors Psych: Reports: mood normal, Denies: thoughts of harming other, thoughts of self harm Physical Examination Physical Examination Vital Signs/I&O Vital Signs Date Time Temp Pulse Resp B/P Pulse Ox O2 Delivery O2 Flow Rate FiO2 06/17/16 16:00 97.6 91 18 136/52 97 Room Air 06/13/16 12:00 1.0 I&O- Last 24 Hours up to 6 AM 06/17/16 06:00 Intake Total 1370 ml Output Total 0 ml Balance 1370 ml General Exam: Positive: alert, attentive, cooperative, no acute distress, oriented times three Visual Analog Score (VAS) For: 6 Neck Exam: Positive: Limited range of motion Chest Exam: Positive: Decreased breath sounds, Rhonchi (none), Wheezing (none) Heart Exam: Positive: Normal S1, S2, Regular rate and rhythm, Negative: Murmurs, Rubs Abdominal Exam: Positive: Nondistended, Normal bowel sounds, Soft Extremity Exam: Positive: Cyanosis, Edema, Other (pulses are decreased Hansard dusky bluish in color) Skin Exam: Positive: Other Symptoms (hands are cool to touch. No visible rashes or lesions) Neuro Exam: Positive: Other (alert and oriented to time place and person. Able to name the president. Able to recall my name after 5 minutes.) Musculoskeletal Animal to no spontaneous movement of the upper or lower extremities. Tenderness to touch over the joints and over the lumbar paravertebral muscles. Assessment Chronic generalized pain with long history of chronic back pain. With recent cardiovascular event cannot rule out centralized pain syndrome. Recommendation and Plan Recommendation and plan. Tamie is alert and oriented. She reports she just does not want to feel any pain. I did review with her that due to her recent health events that managing pain with pain medications will be extremely difficult. Would want any medications to be reviewed and okayed by Dr. Quispe from neurology and Dr. Maurice from nephrology. Would recommend use of very limited oxycodone 5 mg no more than once per day. This could be used prior to her physical therapy or to getting her out of bed. I understand that she declined physical therapy today but she states that she would be willing to try tomorrow. Use of any pain medications will require close monitoring of her respiratory status. Thank you Dr. Verde for allowing us to participate in the care of your patient Tamie Carter. Should you have any questions we'll be glad to discuss this with you at any time. Pauline Ruiz Jun 17, 2016 18:31
[2016-06-17] MEDS: MONTELUKAST 10 MG TAB PO SCH (22:13)
[2016-06-17] MEDS: SIMVASTATIN 20 MG TAB PO SCH (22:14)
[2016-06-18 04:00] VITALS: BP 124/70
[2016-06-18] MEDS: SODIUM CHLORIDE 0.9% INJ 10 ML SYR IV SCH ×4 (06:00→21:05)
[2016-06-18] MEDS: ADVAIR DISKUS 250/50 INH PWD INH SCH ×2 (07:28→20:59)
[2016-06-18 08:00] VITALS: BP 118/62
[2016-06-18 08:21] LABS: ALBUMIN 2.9 GM/DL (3.2-5.2); CALCIUM LEVEL 8.7 MG/DL (8.5-10.1); CREATININE FOR GFR 3.15 MG/DL (0.55-1.02); GLOMERULAR FILTRATION RATE 16.2 (>51); PHOSPHORUS LEVEL 2.8 MG/DL (2.5-4.9); POTASSIUM SERUM 3.6 MEQ/L (3.5-5.1)
[2016-06-18 08:26] LABS: MEAN CORPUSCULAR HEMOGLOBIN 27.5 pg (27.0-33.0); MEAN CORPUSCULAR VOLUME 86.1 fl (80.0-96.0); RED CELL DISTRIBUTION WIDTH 14.2 % (11.5-14.5); WHITE BLOOD COUNT 9.4 K/mm3 (4.0-10.0)
[2016-06-18] MEDS: CINACALCET 30 MG TAB (SENSIPAR) PO SCH (08:53)
[2016-06-18] MEDS: CitaloPRAM (CeleXA) 20 MG TAB PO SCH (08:53)
[2016-06-18] MEDS: ASPIRIN 81 MG CHEW TABLET PO SCH (08:54)
[2016-06-18] MEDS: MULTIVITAMINS/MINERALS THERAP 1 TAB PO SCH (08:54)
[2016-06-18] MEDS: PANTOPRAZOLE 40MG TAB (PROTONIX) PO SCH (08:54)
[2016-06-18] MEDS: LOSARTAN 25 MG TAB PO SCH (08:55)
[2016-06-18] MEDS: ATENOLOL 25 MG TAB PO SCH ×2 (08:56→21:06)
[2016-06-18] MEDS: oxyCODONE 5MG TAB PO PRN (08:57)
[2016-06-18] MEDS: VALPROATE SOD INJ 500 MG in D5W 50 ML IV SCH (09:05)
[2016-06-18] MEDS: LIDOCAINE 5% OINT 30 GM TOP SCH ×2 (09:06→21:07)
[2016-06-18] MEDS: HumaLOG INSULIN (NovoLOG) PER UNIT SC SCH ×4 (09:07→21:00)
[2016-06-18 09:58] LABS: MAGNESIUM LEVEL 2.6 MG/DL (1.8-2.4)
[2016-06-18] MEDS: MAGNESIUM OXIDE 400 MG TAB (MAG-OX) PO SCH (09:59)
[2016-06-18] MEDS ORDERED: LACTULOSE 20 GM/30 ML SYRUP UD PO ONE (10:15)
[2016-06-18 12:00] VITALS: BP 136/72
--- NOTE | 2016-06-18 14:02 | IPNPDOC ---
Date Seen The patient was seen on 06/18/16. Progress Note DATE OF ENCOUNTER: 06/18/2016 SUBJECTIVE: Ms. Carter was seen this morning at bedside. She appears to be alert but slow to speak. She appears to have some significant deficits from her bilateral stroke. She reports some nausea. No vomiting, diarrhea or abdominal pain. No chest pain, shortness of breath, lightheadedness or dizziness. No fevers or chills. She was seen by pain management yesterday with recommendations for her oxycodone. She also continues to have some muscle spasms. OBJECTIVE: Vital Signs Date Time Temp Pulse Resp B/P Pulse Ox O2 Delivery O2 Flow Rate FiO2 06/18/16 12:00 97.6 74 18 136/72 97 Room Air I&O- Last 24 Hours up to 6 AM 06/18/16 06:00 Intake Total 1315 ml Output Total 2000 ml Balance -685 ml GENERAL: Lying in bed comfortably, in no acute distress. HEENT: Normocephalic, atraumatic. Extraocular movements are intact. Moist mucosa. NECK: Supple. Jugular veins are not elevated. No cervical lymphadenopathy. HEART: Normal S1, S2. Regular rate and rhythm. LUNGS: Good air movement bilaterally. No rhonchi or wheezing appreciated. ABDOMEN: Soft, nontender, nondistended. Bowel sounds are present. No rebound, guarding or rigidity. EXTREMITIES: No cyanosis or lower extremity edema. Has left transmetatarsal amputation. Positive pedal pulses bilaterally. SKIN: Warm and dry. Good skin turgor. No rashes noted. NEURO: Patient is able to squeeze my hands, back line cook strength is diminished however. She is not able to elevate her upper extremities or her lower extremities. She also reports some visual deficits. LABORATORY DATA: 06/18/16 07:32 06/18/16 08:10 IMAGING: Left hip x-ray done on 06/11 revealed no fracture, vascular stent. CT of the left hip revealed osteoarthritis, no fracture. MRI of the lumbosacral spine revealed diffuse disc bulge at the L3-4 level with minimal thecal sac compression, minimal central canal stenosis at the L4-5 level secondary to disc bulge, ligamentous and facet hypertrophy, diffuse disc bulge and retrolisthesis at the L5-S1 level, which is not significantly changed from previous study. Head CT on 06/12: Significant progression of symmetric wide bands of parenchymal brain edema involving the frontoparietal and occipitoparietal margins. The progression suggests atypical posterior reversible encephalopathy complicated by infarction, or vasculitis (producing infarction), or watershed infarcts ( from sustained hypotension). No evidence of acute hemorrhage. MRI on 06/13: Acute bilateral temporoparietal lobe infarctions with small hemorrhagic components. MRA on 06/13: No aneurysm or AVM, atherosclerotic disease noted. Carotid US on 06/14: <50% stenosis of bilateral ICA. Head CT on 06/14: Bilateral watershed distribution infarcts involving the occipital, frontal, and temporal lobes bilaterally. No significant change from June 12, 2016. No hemorrhage was visible by CT criteria. ASSESSMENT AND PLAN: 1. End-stage renal disease on hemodialysis Tuesday, and Saturdays. Volume status and electrolytes are stable. Continue with normal maintenance hemodialysis schedule next session tomorrow 06/19. 2. Significant acute bilateral infarcts involving temporal, parietal, frontal and occipital lobes. She is on aspirin and simvastatin. It appears that she may have significant residual deficits from this event. She will require further physical therapy. Hypercoagulable workup unrevealing. MRA did not show any aneurysm or AVM, carotid ultrasound did not show significant stenosis. Echocardiogram did not show any acute findings to explain her CVA. 3. Hypertension. Blood pressure is stable. She is on losartan and atenolol. 4. Hyperparathyroidism and hyperphosphatemia. She continues to be on Sensipar. 5. History of seizure disorder. She has been changed to Depakote by neurology. EEG did not show any epileptiform abnormalities. GME ATTESTATION GME ATTESTATION My preceptor for this patient encounter was physically present in the building during the encounter and was fully available. As needed, all aspects of the patient interview, examination, medical decision making process, and medical care plan development were reviewed and approved by the preceptor. Preceptor is aware and concurs with the plan as stated in the body of this note and will attest to such by his/her cosignature. ATTENDING NOTE Nephrology: Pt was examined in the AM. Awake and more Calm. Tolerated Hd yesterday, next HD session in the AM. Extensive multifocal CVA on recent Ct scan, management as per Neurology. LON DUFFY DO Jun 18, 2016 14:02 KAI MORRIS MD Jun 20, 2016 22:08
[2016-06-18] MEDS: ONDANSETRON 4MG/2ML VIAL (J2405) IV PRN (15:13)
[2016-06-18 16:00] VITALS: BP 138/62
[2016-06-18] MEDS: CYCLOBENZAPRINE 5MG TABLET PO PRN (16:44)
--- NOTE | 2016-06-18 19:05 | IPN ---
DATE: 06/17/2016 SUBJECTIVE: Patient seen and examined in the room today. Patient still has fluctuation of her mentation. Still has intermittent moments when patient complains about muscle spasms followed by the fatigue phase. During encounter patient shows significant fatigue. I cannot fully assess the patient's orientation, with repeating the same question multiple times. Patient stated she still complains about headache. It is mainly on the top of the head. It is a sharp pain, and patient cannot tell me if there is radiation. Patient could not answer if there is any visual or auditory disturbance. Patient is still not able to move the bilateral upper and lower extremities. Per nursing staff and cardiac telemetry, yesterday evening, later afternoon, patient had a persistent hypertension with a blood pressure around 198/100. Confirmed with nursing staff the blood pressure was taken when the patient was not in the spasm episode. Patient was actually resting when the patient blood pressure was taken. After one extra dose of beta jacquie, patient's blood pressure returned to satisfactory range. OBJECTIVE: VITAL SIGNS: Temperature is 97.8, pulse is 70, respirations 18, blood pressure 136/52, pulse oximetry 98% in room air. GENERAL: Patient has intermittent wake and drowsy phases. Patient is alert and awake during the encounter. I have a difficult time assessing patient's orientation. HEENT: Normocephalic, atraumatic. Extraocular motor grossly intact. CARDIOVASCULAR: Positive S1, S2, regular rate. LUNGS: Clear to auscultation bilaterally. ABDOMEN: Soft, nontender, nondistended. Bowel sounds present. EXTREMITIES: Intermittent muscle spasms, mainly on the upper extremities and the trunk area. No lower extremity edema. No cyanosis. NEUROLOGIC: Patient's muscle strength is 0/5 in upper and lower extremities. Sensation to fine touch grossly intact throughout. LABORATORY DATA: WBC 7.7, hemoglobin 14.2, hematocrit 43.6, platelet count is 158. Sodium is 137, potassium 3.8, chloride is 101, carbon dioxide 24, BUN 36, creatinine is 3.83, GFR is 12.9, fasting glucose 212, calcium 8.2, phosphorus 3.1, albumin 2.5. ASSESSMENT AND PLAN: 1. Acute cerebrovascular accident of the bilateral frontal and temporal lobes with small hemorrhages. Captain Cann[employer] Tender has been consulted. Patient is currently on aspirin 122 mg. Will continue with every 4 neurologic checks, and we are waiting for the electroencephalogram (EEG) results. Patient was just started on valproic acid intravenous (IV) twice a day per neurologist's recommendations. 2. Hypothyroidism. On 06/14/2016, patient Synthroid had to be converted to the IV dose. When the Synthroid medication was converted to by mouth formulation on 06/15/2016, the Synthroid dose was given larger than anticipated dose, and patient has been monitored closely in the progressive care unit (PCU) for possible overdose side effect. On 06/16/2016, patient was having persistent hypertension despite patient is on atenolol. Additional dose of beta jacquie had to be given in order to control the blood pressure. With that extra dose of beta blockade, patient's blood pressure dropped down to around 130-140 range, which is in range. The extra beta jacquie was discontinued, since the stabilization of the blood pressures. Patient is being monitored on telemetry. There is no tachycardia noted. 3. End-stage renal disease, on hemodialysis. Nephrology team was been consulted. We appreciate their assistance. Patient's hemodialysis day is Tuesday, , and Tuesday. Patient received hemodialysis today. 4. Acute mental status changes possibly due to acute stroke. It may be complicated by her previous excessive narcotic use. Patient's oxycodone and Lyrica have been on hold. Oxycodone 5 mg, which is lower than the patient's home dose, is given intermittently in the case of a persistent severe pain. Will continue to monitor the patient. Pain management has been consulted. We appreciate their input. 5. Peripheral vascular disease, on Zocor. 6. Depression, on Celexa. 7. Chronic pain. Patient had history of chronic back pain; however, imaging studies were reviewed. Currently pain medication is on hold. We appreciate pain management team's recommendations. 8. History of hypertension. Patient's blood pressure is being measured continuously. Per neurology recommended, will try to control the systolic blood pressure greater than 130. Patient does have intermittent muscle spasms, which makes precise blood pressure measurement very difficult. Patient has persistent hypertension. Patient's blood pressure remained in the 180-190 for several hours. Additional beta jacquie had to be given, and patient responded nicely to the additional beta blockade. Since the stabilization of the blood pressure, the additional beta jacquie is discontinued, and patient remains on atenolol for now. 9. Deep vein thrombosis (DVT) prophylaxis. Patient is on thromboembolic deterrents (TEDs) and sequential compression devices.
[2016-06-18 20:19] VITALS: BP 145/75
[2016-06-18] MEDS: MONTELUKAST 10 MG TAB PO SCH (21:06)
[2016-06-18] MEDS: SIMVASTATIN 20 MG TAB PO SCH (21:06)
--- NOTE | 2016-06-18 22:31 | IPN ---
DATE: 06/18/2016 SUBJECTIVE: The patient seen and examined in the room today. The patient has continued to complain about intermittent muscle spasm. The patient also complains about generalized pain when she is awake and the patient was complaining about a headache located in the middle of the head. The patient is able to move her fingers with minimal muscle strength. Has difficulty moving bilateral upper extremities. The patient has the sensation of bilateral upper and lower extremities. No overnight events were reported per medical staff. OBJECTIVE: VITAL SIGNS: Temperature is 97.5, pulse is 84, respirations 20, blood pressure is 188/62, pulse is 97% on room air. GENERAL: Continues with complaints of subjective pain. The patient's mentation is fluctuating between awakeness and mildly sedated state. Unable to assess accurate mentation at this moment. The patient does have intermittent generalized spasm episodes. HEENT: Normocephalic, atraumatic. CARDIOVASCULAR: Positive S1, S2, regular rate. LUNGS: Clear to auscultation bilaterally. No wheezes or rhonchi. ABDOMEN: Soft, nontender, nondistended. Bowel sounds present. EXTREMITIES: Intermittent muscle spasm the digits on the left feet. No significant lower extremity edema. No cyanosis. NEUROLOGICAL: Sensation to fine touch grossly intact throughout. The patient finally started having 3 out of 5 muscle strength with finger program supervisor. No meaningful movement of bilateral wrists, elbow and shoulder joints. Unable to move lower extremities at all. LABORATORY DATA: WBC 9.4, hemoglobin is 14, hematocrit is 43.9, platelet count is 38. Sodium is 137, potassium 3.6, chloride 99, carbon dioxide 28, BUN 23, creatinine is 3.1. GFR is 16.2. Fasting glucose is 249. Calcium is 8.9. Phosphorous 2.8. Magnesium 2.6. Albumin 2.9. ASSESSMENT AND PLAN: 1. Acute cerebrovascular accident of the bilateral temporoparietal lobes. Neurologist has been consulted. Appreciate his assistance. The patient is currently on aspirin 162 mg. Continue with check. The patient will continue with physical therapy. Currently the patient is being evaluated for possible rehabilitation candidate. 2. Acute mental status changes, possibly due to acute stroke or possibly due to narcotic use/withdrawal. The patient previously was on high dose oxycodone and Lyrica for her chronic pain. Due to a decrease in mentation, the patient's pain medication has been on hold. Pain management has been consulted and the patient is being evaluated. It is recommended that the patient can have oxycodone 5 mg every day, times one as needed. 3. Generalized muscle spasm. The patient's current mentation is concerning. The patient is waning between drowsiness multiple times daily. Muscle relaxant generally carries sedative properties and we will use cautiously if needed. Due to acute renal failure, the patient will use the very minimal dose if she can tolerate it. 4. Peripheral vascular disease, on Zocor. 5. Depression, on Celexa. 6. Hypertension. There are multiple factors that may contribute to patient's hypertension including frequent intermittent muscle spasm versus opioid withdrawal versus end-stage renal disease versus Synthroid use. Currently the patient's blood pressure is being monitored continuously. 7. Deep venous thrombosis (DVT) prophylaxis. The patient has thromboembolism deterrents (TEDs) and sequential compression devices.
[2016-06-19] VITALS: BP 122/68
[2016-06-19 04:11] VITALS: BP 142/78
[2016-06-19] MEDS: SODIUM CHLORIDE 0.9% INJ 10 ML SYR IV SCH ×3 (05:07→21:24)
[2016-06-19 05:25] LABS: MEAN CORPUSCULAR HEMOGLOBIN 27.5 pg (27.0-33.0); MEAN CORPUSCULAR HGB CONC 31.6 g/dl (32.0-36.5); MEAN CORPUSCULAR VOLUME 87.1 fl (80.0-96.0); RED CELL DISTRIBUTION WIDTH 13.9 % (11.5-14.5); WHITE BLOOD COUNT 9.5 K/mm3 (4.0-10.0)
[2016-06-19] MEDS: ASPIRIN 81 MG CHEW TABLET PO SCH (05:44)
[2016-06-19] MEDS: PANTOPRAZOLE 40MG TAB (PROTONIX) PO SCH (05:44)
[2016-06-19] MEDS: CitaloPRAM (CeleXA) 20 MG TAB PO SCH (05:44)
[2016-06-19] MEDS: LIDOCAINE 5% OINT 30 GM TOP SCH ×2 (05:44→22:21)
[2016-06-19] MEDS: CINACALCET 30 MG TAB (SENSIPAR) PO SCH (05:45)
[2016-06-19] MEDS: MULTIVITAMINS/MINERALS THERAP 1 TAB PO SCH (05:45)
[2016-06-19] MEDS: LOSARTAN 25 MG TAB PO SCH (05:45)
[2016-06-19] MEDS: ATENOLOL 25 MG TAB PO SCH ×2 (05:46→21:24)
[2016-06-19 06:10] LABS: ALBUMIN 2.5 GM/DL (3.2-5.2); CALCIUM LEVEL 8.2 MG/DL (8.5-10.1); CREATININE FOR GFR 3.79 MG/DL (0.55-1.02); GLOMERULAR FILTRATION RATE 13.1 (>51); PHOSPHORUS LEVEL 3.1 MG/DL (2.5-4.9); POTASSIUM SERUM 3.2 MEQ/L (3.5-5.1)
[2016-06-19] MEDS: DIVALPROEX 250MG *ER* TAB PO SCH (06:21)
[2016-06-19 08:00] VITALS: BP 132/78
[2016-06-19] MEDS ORDERED: POTASSIUM CHLORIDE 10 MEQ SR TABLET PO ONE (08:00)
[2016-06-19] MEDS: ADVAIR DISKUS 250/50 INH PWD INH SCH ×2 (09:00→20:25)
[2016-06-19] MEDS: HumaLOG INSULIN (NovoLOG) PER UNIT SC SCH ×4 (09:20→21:00)
[2016-06-19] MEDS: oxyCODONE 5MG TAB PO PRN (13:06)
[2016-06-19] MEDS ORDERED: LIDOCAINE 1% SDV 5 ML VIAL SC ONE (13:45)
[2016-06-19] MEDS ORDERED: HEPARIN 1,000 UNITS/ML 10ML VIAL (FOR RADIOLOGY& DIALYSIS ONLY) IV ONE (13:45)
--- NOTE | 2016-06-19 14:44 | IPNPDOC ---
Date Seen The patient was seen on 06/19/16. Progress Note DATE OF ENCOUNTER: 06/19/2016 SUBJECTIVE: Ms. Carter was seen this afternoon during hemodialysis. She states that she is stressed as she is not able to relax. She does continue to have moments where she screams out if she needs something because she is not able to press the nurse call button. She reports that she continues to have muscle spasm. She was initiated on Flexeril yesterday. She denies any nausea, vomiting, diarrhea or abdominal pain. No chest pain, shortness of breath, lightheadedness or dizziness. No fevers or chills. She is tolerating hemodialysis thus far, blood pressure is slightly elevated. OBJECTIVE: Vital Signs Date Time Temp Pulse Resp B/P Pulse Ox O2 Delivery O2 Flow Rate FiO2 06/19/16 13:06 18 06/19/16 08:00 Room Air 06/19/16 08:00 96.5 74 132/78 97 I&O- Last 24 Hours up to 6 AM 06/19/16 06:00 Intake Total 2040 ml Balance 2040 ml GENERAL: Lying in bed comfortably, in no acute distress. HEENT: Normocephalic, atraumatic. Extraocular movements are intact. Moist mucosa. NECK: Supple. Jugular veins are not elevated. HEART: Normal S1, S2. Regular rate and rhythm. LUNGS: Good air movement bilaterally. No rhonchi or wheezing appreciated. ABDOMEN: Soft, nontender, nondistended. Bowel sounds are present. No rebound, guarding or rigidity. EXTREMITIES: No cyanosis or lower extremity edema. She has left transmetatarsal amputation. Positive pedal pulses bilaterally. SKIN: Warm and dry. Good skin turgor. No rashes noted. NEURO: She has good ornamental bronze worker strength bilaterally however she is not able to elevate her upper extremities or her lower extremities. She also reports some blurry vision but she can still see. LABORATORY DATA: 06/19/16 05:13 IMAGING: Left hip x-ray done on 06/11 revealed no fracture, vascular stent. CT of the left hip revealed osteoarthritis, no fracture. MRI of the lumbosacral spine revealed diffuse disc bulge at the L3-4 level with minimal thecal sac compression, minimal central canal stenosis at the L4-5 level secondary to disc bulge, ligamentous and facet hypertrophy, diffuse disc bulge and retrolisthesis at the L5-S1 level, which is not significantly changed from previous study. Head CT on 06/12: Significant progression of symmetric wide bands of parenchymal brain edema involving the frontoparietal and occipitoparietal margins. The progression suggests atypical posterior reversible encephalopathy complicated by infarction, or vasculitis (producing infarction), or watershed infarcts ( from sustained hypotension). No evidence of acute hemorrhage. MRI on 06/13: Acute bilateral temporoparietal lobe infarctions with small hemorrhagic components. MRA on 06/13: No aneurysm or AVM, atherosclerotic disease noted. Carotid US on 06/14: <50% stenosis of bilateral ICA. Head CT on 06/14: Bilateral watershed distribution infarcts involving the occipital, frontal, and temporal lobes bilaterally. No significant change from June 12, 2016. No hemorrhage was visible by CT criteria. ASSESSMENT AND PLAN: 1. End-stage renal disease on hemodialysis Tuesday, and Saturdays. She is being dialyzed today with a goal of removing 1.5 liters. Volume status is stable. Continue with normal maintenance hemodialysis schedule. 2. Hypokalemia. Potassium was 3.2. Oral supplementation given. Continue to monitor electrolytes. 3. Significant acute bilateral infarcts involving temporal, parietal, frontal and occipital lobes. She is on aspirin and simvastatin. It appears that she may have significant residual deficits from this event and will require a lot of physical therapy. Hypercoagulable workup unrevealing. MRA did not show any aneurysm or AVM, carotid ultrasound did not show significant stenosis. Echocardiogram did not show any acute findings to account for her CVA. 4. Hypertension. She is on losartan and atenolol. Medications will be adjusted accordingly, as her current doses have been reduced and she is not on her home medication clonidine. 5. Hyperparathyroidism and hyperphosphatemia. She continues to be on Sensipar. Renvela was held due to poor oral intake. 6. History of seizure disorder. She has been changed to Depakote by neurology. EEG did not show any epileptiform abnormalities. GME ATTESTATION GME ATTESTATION My preceptor for this patient encounter was physically present in the building during the encounter and was fully available. As needed, all aspects of the patient interview, examination, medical decision making process, and medical care plan development were reviewed and approved by the preceptor. Preceptor is aware and concurs with the plan as stated in the body of this note and will attest to such by his/her cosignature. LON DUFFY DO Jun 19, 2016 14:44
[2016-06-19 16:50] VITALS: BP 200/105
[2016-06-19] MEDS: CYCLOBENZAPRINE 5MG TABLET PO PRN (17:20)
[2016-06-19 18:00] VITALS: BP 138/82
--- NOTE | 2016-06-19 19:50 | IPN ---
DATE: 06/19/2016 SUBJECTIVE: The patient is seen and examined in the room today. The patient continued to complain of generalized pain and a headache. The patient also complained about intermittent muscle spasm. Flexeril was started yesterday. The patient feels the muscle relaxant is helping her. I explained to the patient that she can only take oxycodone on a daily dose per pain management recommendation, and the patient has acute stroke and with decreased mentation, and we have to use narcotic cautiously. Per nursing staff, the patient continues to cause a disturbance to the other patients on the floor by intermittent yelling from inside the room. OBJECTIVE: VITAL SIGNS: Temperature is 96.5, pulse 74, respirations 18, blood pressure 132/78, pulse oximetry 97% on room air. GENERAL: Continues to have fluctuation of alertness and awakeness and mentation change. Unable to clearly assess the improvement of her mental status. HEENT: Normocephalic, atraumatic. CARDIOVASCULAR: Regular rate. Positive S1, S2. LUNGS: Clear to auscultation bilaterally. No rhonchi or wheezes. ABDOMEN: Soft, nontender, nondistended. Bowel sounds present. No rebound, no guarding. EXTREMITIES: The patient has multiple toe amputation on left foot. No toes to the left foot. No lower extremity edema. No sign of cyanosis. NEUROLOGIC: The patient has improving bilateral finger cashier or checker stock clerk strength, unable to move the wrist joint or elbow joint or shoulder joint bilaterally. Unable to move lower extremities. The patient has grossly intact sensation to fine touch. LABORATORY DATA: WBC is 9.5, hemoglobin 13.9, hematocrit 44.1, platelet count 157. Sodium is 136, potassium 3.2, chloride 101, carbon dioxide 26, BUN 29, creatinine 3.79, GFR is 13.1, fasting glucose 180, calcium 8.2, phosphorus 3.1, albumin 3.5. ASSESSMENT AND PLAN: 1. Acute cerebrovascular accident of bilateral temperoparietal lobes, with a small hemorrhagic component. Watershed distribution infarction also involving the occipital, frontal and temporal lobes bilaterally. Those findings are from the CT of the head and the MRI of the brain. Neurology has been consulted. The patient is on aspirin 162 mg by mouth daily. The patient is continued on neurologic checks. The patient is continued on physical therapy. Currently the patient is being evaluated for possible rehabilitation candidate. The patient is currently taking Depakote per Dr. Cespedes's recommendation. 2. Acute mental status changes, possibly due to acute stroke or possibly due to narcotic use/withdrawal. Pain management has been consulted. Currently the patient is receiving reduced dose of oxycodone and dosing frequency decreased from twice a day, plus the as-needed dose down to a daily dose. The patient also started on low dose of Flexeril. 3. Generalized muscle spasm. The patient started on Flexeril. Minimal dose of Flexeril yesterday. The patient stated she noticed improvement and she is doing better. Continue to monitor. 4. Peripheral vascular disease, on Zocor. 5. Depression, on Celexa. 6. Hypertension. Currently blood pressure shows significant improvement. Continue atenolol. The patient is on atenolol and losartan. 7. Deep venous thrombosis (DVT) prophylaxis. The patient has thromboembolism deterrent stockings (TEDs) and sequential compression devices.
[2016-06-19] MEDS: MONTELUKAST 10 MG TAB PO SCH (21:23)
[2016-06-19] MEDS: SIMVASTATIN 20 MG TAB PO SCH (21:24)
[2016-06-19 22:00] VITALS: BP 194/80
[2016-06-20] MEDS: SODIUM CHLORIDE 0.9% INJ 10 ML SYR IV SCH ×3 (05:12→21:42)
[2016-06-20 05:42] LABS: MEAN CORPUSCULAR HEMOGLOBIN 27.1 pg (27.0-33.0); MEAN CORPUSCULAR HGB CONC 31.5 g/dl (32.0-36.5); MEAN CORPUSCULAR VOLUME 86.3 fl (80.0-96.0); RED CELL DISTRIBUTION WIDTH 14.2 % (11.5-14.5); WHITE BLOOD COUNT 9.7 K/mm3 (4.0-10.0)
[2016-06-20 05:45] LABS: ALBUMIN 2.4 GM/DL (3.2-5.2); CALCIUM LEVEL 8.3 MG/DL (8.5-10.1); CREATININE FOR GFR 2.86 MG/DL (0.55-1.02); GLOMERULAR FILTRATION RATE 18.1 (>51); PHOSPHORUS LEVEL 2.3 MG/DL (2.5-4.9); POTASSIUM SERUM 3.7 MEQ/L (3.5-5.1)
[2016-06-20 06:00] VITALS: BP 184/86
[2016-06-20] MEDS: ADVAIR DISKUS 250/50 INH PWD INH SCH ×2 (08:40→20:02)
[2016-06-20] MEDS: CINACALCET 30 MG TAB (SENSIPAR) PO SCH (10:01)
[2016-06-20] MEDS: ASPIRIN 81 MG CHEW TABLET PO SCH (10:02)
[2016-06-20] MEDS: CitaloPRAM (CeleXA) 20 MG TAB PO SCH (10:02)
[2016-06-20] MEDS: MULTIVITAMINS/MINERALS THERAP 1 TAB PO SCH (10:02)
[2016-06-20] MEDS: DOCUSATE SODIUM 100 MG CAP PO PRN (10:02)
[2016-06-20] MEDS: PANTOPRAZOLE 40MG TAB (PROTONIX) PO SCH (10:02)
[2016-06-20] MEDS: ATENOLOL 25 MG TAB PO SCH ×2 (10:02→21:39)
[2016-06-20] MEDS: LOSARTAN 25 MG TAB PO SCH (10:03)
[2016-06-20] MEDS: DIVALPROEX 250MG *ER* TAB PO SCH (10:03)
[2016-06-20] MEDS: HumaLOG INSULIN (NovoLOG) PER UNIT SC SCH ×4 (10:04→21:00)
[2016-06-20] MEDS: LIDOCAINE 5% OINT 30 GM TOP SCH ×2 (10:04→21:40)
[2016-06-20] MEDS ORDERED: oxyCODONE 5MG TAB PO ONE (10:30)
[2016-06-20] MEDS: oxyCODONE 5MG TAB PO PRN ×2 (10:30→14:38)
--- NOTE | 2016-06-20 12:17 | IPN ---
DATE: 06/20/2016 Ms. Carter is seen this morning on her bedside. Her overall condition remains unchanged. She underwent hemodialysis yesterday, which she tolerated very well. She remains quadriplegic due to bilateral temporal parietal stroke. She reports frequent muscle spasms and pain in her joints. She has been screaming frequently due to pain. She reports eating some of her breakfast. However, she is not nauseated and denies any vomiting. She denies any dyspnea or chest pain. On physical exam, temperature 97.2 degrees Fahrenheit, heart rate 78 per minute and respiratory rate 20 per minute. Blood pressure 184/86 mmHg and oxygen saturation 99%. Head is atraumatic. Pupils are equal and reactive to light. Sclera is anicteric. Ears, nose and throat are unremarkable. Central line is present in right neck. Heart sounds regular and lungs with good bilateral air entry. Abdomen is soft and nontender. Extremities without cyanosis or clubbing. Neurologically she has quadriplegia. Today's labs show WBC count 9.7, hemoglobin 13.0, hematocrit 41.4. Platelets 135. Sodium 139 and potassium 3.7. BUN 17 and creatinine 2.86. Albumin is 2.4. PROBLEMS: 1. End-stage renal disease. Patient underwent hemodialysis yesterday which she tolerated very well. Her electrolytes are normal now and next dialysis will be scheduled for June 22. 2. Hypertension. Her blood pressure has been previously well controlled. I will defer to hospitalist service for further adjustments in her antihypertensive meds. 3. Bilateral strokes with significant neurological loss. I have discussed with the patient about her potential difficulties in the future. I have discussed with her about DNR however, she is not ready to make that decision. We will discuss with her further in the next few days. The patient reports that her family is not involved in her care anymore. I feel that medically a DNR is appropriate and she is likely to be a [facility] resident for rest of her life. It will be quite difficult for her to undergo outpatient hemodialysis in view of her severe neurological deficit. 4. Malnutrition. Her oral intake is diminished. The patient is being encouraged to eat and increase her oral intake of protein. 5. Anemia. Her anemia is not an issue at this point.
[2016-06-20 14:00] VITALS: BP 160/80
[2016-06-20] MEDS: CYCLOBENZAPRINE 5MG TABLET PO PRN (14:38)
--- NOTE | 2016-06-20 16:55 | IPN ---
DATE OF VISIT: 06/20/2016 SUBJECTIVE: The patient was seen and examined in the room today. The patient continued to complain about the pain and the patient has been requesting more dose of muscle relaxants. However, we continued to explain to the patient that based on her care and mental status, it is not appropriate to increase the dosage and frequency of the pain medication and the muscle relaxant. The patient still complained about not able to move bilateral upper and lower extremities except some minor finger movements. The patient continued to yell a loud voice from inside of her room and the patient has been causing some disturbance to the surrounding other patients. Yesterday night the patient had more frequent agitation and a sitter was requested at nighttime. OBJECTIVE: VITAL SIGNS: Temperature is 97.2, pulse is 78, respirations 18, blood pressure is 184/86, pulse oximetry 99% on room air. GENERAL: The patient is awake and alert, able to answer questions and follows commands. Still has intermittent episodes where she has decreased alertness and awakeness. Have intermittent muscle spasms. HEENT: Normocephalic, atraumatic. CARDIOVASCULAR: Regular rate. Positive S1, S2. LUNGS: Clear to auscultation bilaterally. No wheezes or rhonchi. ABDOMEN: Soft, nontender, nondistended. Bowel sounds are present. No rebound, no guarding. EXTREMITIES: Left toe amputated. No lower extremity. No sign of cyanosis. NEUROLOGICAL: 3-4/5 muscle strength of the bilateral fingers. Unable to move the bilateral wrists, elbow and shoulders. Has no muscle strength of the lower extremities. However, continues to have impaired visual aviles. Sensation to fine touch grossly intact. LAB DATA: White blood count (WBC) 9.7, hemoglobin 13, hematocrit is 41.4, platelet count is 135. Sodium is 139, potassium 3.7, chloride is 102, carbon dioxide 27, BUN is 17, creatine is 2.81, glomerular filtration rate (GFR) is 18.1, fasting glucose is 153, calcium is 8.3, phosphorus is 2.3, albumin 2.4. ASSESSMENT AND PLAN: 1. Acute cerebrovascular accident of bilateral temporoparietal and occipital lobe with small hemorrhagic issue. As based on the CT, watershed distribution infarction on occipital, frontal and temporal lobe. The patient is on aspirin 162 mg by mouth daily per neurology's recommendations. The patient is to continue with physical therapy. However, the patient has not showed any significant improvement. I discussed with neurologist, Dr. Maurice today. The patient's jail prognosis is poor; and based on the patient's multiple comorbidities, maybe it is appropriate to initiate (METAL PUNCH PRESS OPERATOR) discussion with the patient. 2. Acute mental status changes secondary to acute stroke and possibly due to narcotic use and withdrawal. The patient started to improve slowly. The patient's oxycodone and Flexeril has been maintained at the minimal dose and frequency. Pain management has been consulted. 3. Generalized muscle spasm. The patient has one daily dose of Flexeril. Will continue to monitor. 4. Peripheral vascular disease on Zocor. 5. Depression on Celexa. 6. Hypertension. The patient continued to have elevated blood pressure. The patient is currently on atenolol and losartan. 7. Deep vein thrombosis (DVT) prophylaxis. The patient is on sequential and compression device. MTDD
[2016-06-20] MEDS: MONTELUKAST 10 MG TAB PO SCH (21:39)
[2016-06-20] MEDS: SIMVASTATIN 20 MG TAB PO SCH (21:39)
[2016-06-20 22:00] VITALS: BP 170/78
[2016-06-21] MEDS: SODIUM CHLORIDE 0.9% INJ 10 ML SYR IV SCH ×3 (05:11→21:40)
[2016-06-21 05:40] LABS: MEAN CORPUSCULAR HEMOGLOBIN 27.3 pg (27.0-33.0); MEAN CORPUSCULAR HGB CONC 32.1 g/dl (32.0-36.5); RED CELL DISTRIBUTION WIDTH 14.5 % (11.5-14.5); WHITE BLOOD COUNT 8.3 K/mm3 (4.0-10.0)
[2016-06-21 05:44] LABS: ALBUMIN 2.3 GM/DL (3.2-5.2); CALCIUM LEVEL 7.8 MG/DL (8.5-10.1); CREATININE FOR GFR 3.84 MG/DL (0.55-1.02); GLOMERULAR FILTRATION RATE 12.9 (>51); PHOSPHORUS LEVEL 2.9 MG/DL (2.5-4.9); POTASSIUM SERUM 3.8 MEQ/L (3.5-5.1)
[2016-06-21 06:00] VITALS: BP 162/70
[2016-06-21] MEDS: ADVAIR DISKUS 250/50 INH PWD INH SCH ×2 (08:43→20:57)
[2016-06-21] MEDS: HumaLOG INSULIN (NovoLOG) PER UNIT SC SCH ×4 (09:23→21:00)
[2016-06-21] MEDS: CINACALCET 30 MG TAB (SENSIPAR) PO SCH (09:24)
[2016-06-21] MEDS: ASPIRIN 81 MG CHEW TABLET PO SCH (09:24)
[2016-06-21] MEDS: CitaloPRAM (CeleXA) 20 MG TAB PO SCH (09:25)
[2016-06-21] MEDS: DIVALPROEX 250MG *ER* TAB PO SCH (09:25)
[2016-06-21] MEDS: MULTIVITAMINS/MINERALS THERAP 1 TAB PO SCH (09:25)
[2016-06-21] MEDS: PANTOPRAZOLE 40MG TAB (PROTONIX) PO SCH (09:25)
[2016-06-21] MEDS: oxyCODONE 5MG TAB PO PRN (09:26)
[2016-06-21] MEDS: LIDOCAINE 5% OINT 30 GM TOP SCH ×2 (09:27→21:41)
[2016-06-21] MEDS: LOSARTAN 25 MG TAB PO SCH (09:32)
[2016-06-21] MEDS: ATENOLOL 25 MG TAB PO SCH ×2 (09:32→21:41)
--- NOTE | 2016-06-21 11:58 | IPN ---
DATE: 06/21/2016 SUBJECTIVE: The patient was seen and examined at the bedside today in the morning. Primary medical team was also present at the bedside along with the optimization analyst. Patient was discussing the goals of care today. Patient seems to be depressed at this time. Otherwise, there was no acute distress. REVIEW OF SYSTEMS: Patient denies any fever or chills, rigors, headache, chest pain, or shortness of breath. She denies any nausea or vomiting, pain in abdomen or constipation. She reports persistent weakness and inability to snow remover her extremities, and she also reports that she is depressed at this time. The rest of review of systems is negative. OBJECTIVE: VITAL SIGNS: Temperature is 96.9 degrees Fahrenheit. Blood pressure is 134/74. Pulse is 72. Respiratory rate of 16. Saturating 97% on room air. INTAKE/OUTPUT: There is no urine output recorded. Weight on the bed scale is 76.7 kg. PHYSICAL EXAMINATION: GENERAL: Patient is awake, alert, oriented times three, laying in bed, no apparent distress. HEAD AND NECK EXAM: Pupils equally round and reactive to light. Mucous membranes are moist. Neck is supple. There is no jugular venous distention (JVD). CARDIOVASCULAR: S1, S2. Regular rate. No murmur, rub, or gallop. RESPIRATORY: Clear to auscultation bilaterally. Bilateral equal air entry. ABDOMEN: Soft. Positive bowel sounds. Nontender. No organomegaly. EXTREMITIES: No clubbing or cyanosis. Trace edema on the bilateral lower extremities. CENTRAL NERVOUS SYSTEM (JDE DEVELOPER): Patient's power in the bilateral upper extremities is around 3/5 and power in the bilateral lower extremities is around 0/5. PSYCH: Depressed mood at this time. LABORATORY REVIEW: CBC showed WBC 8.3, hemoglobin 12.8, platelets of 139. BMP showed sodium 135, potassium 3.8, chloride 99, bicarbonate 27, BUN 26, creatinine 3.8, calcium 7.8, phosphorus 2.9, albumin 2.3. CURRENT MEDICATIONS: Patient's medications are all reviewed by me. There is no change in the medications today as compared with yesterday. ASSESSMENT: 55-year-old female with past medical history of end-stage renal disease on hemodialysis. Recent hospital course has been complicated by bilateral cerebrovascular accident (CVA) with quadriplegia. Nephrology service following the patient for management of end-stage renal disease. PLAN: 1. End-stage renal disease: Patient was dialyzed over the weekend. There is no urgent need to do hemodialysis. Next hemodialysis session will be tomorrow, 06/22/2016. 2. Hypertension: Blood pressure is well controlled at this time. Continue current dose of atenolol 25 mg by mouth every 12 hours, losartan 25 mg by mouth daily. 3. Recent CVA with quadriplegia: Patient is discussing the goals of care with the primary medical team. She also wants to see her family members, a family welfare social work professor and a clock repair technician. She is inclined towards comfort measures, but she has not finally decided at this time. We shall continue to dialyze the patient at this time until she makes a final decision. 4. Anemia and end-stage renal disease: Patient's hemoglobin is acceptable at this time. No need of Aranesp. 5. Secondary hyperparathyroidism: Continue current dose of Sensipar 30 mg by mouth daily. 6. Social issues: I extensively discussed patient's current medical condition, strokes, quadriplegia and end-stage renal disease. Patient is going to make the final decision within a few days. She is more inclined towards keeping herself comfortable and pain-free, and stopping the rest of the medications. At this time, I will continue the current care. Rest of the management is as per primary team and social work. If patient makes herself comfortable, then palliative care and hospice can be called on board.
[2016-06-21] MEDS: CYCLOBENZAPRINE 5MG TABLET PO PRN (12:57)
[2016-06-21 14:00] VITALS: BP 140/82
--- NOTE | 2016-06-21 16:25 | IPN ---
DATE: 06/21/2016 SUBJECTIVE: The patient is seen and examined in the room today. For the past week, I have had a chance to talk to all the involved specialists. All feel that the patient's condition is guarded and the patient did not show any improvement since admission. Yesterday, I had a chance to discuss with Dr. Maurice who also feels that the patient may benefit from the COMFORT MEASURES ONLY (MANAGER SECURITY AND SAFETY). This morning, I reintroduced the idea to the patient. However, the patient started to get very upset and she required to talk to a family member including her daughter. Per the medical staff, the patient continued causing disturbance to the medical staff and surrounding patients due to her frequent yelling and requesting for pain management. OBJECTIVE: VITAL SIGNS: Temperature is 96.9, pulse is 64, respirations 18, blood pressure is 162/70, pulse oximetry is 97% in room air. GENERAL: At the time of the encounter, the patient stated she is suffering pain. However, there are no facial grimaces. The patient is alert and oriented times three. HEENT: Normocephalic, atraumatic. Extraocular motor grossly intact. Poor dentition. CARDIOVASCULAR: Regular rate, positive S1, S2. LUNGS: Clear to auscultation bilaterally. No wheezes or rhonchi. ABDOMEN: Soft, nontender, nondistended. Bowel sounds present. EXTREMITIES: There is some trace edema in the bilateral upper and lower extremities. No sign of cyanosis. The patient does not have any toes of the left foot. LABORATORY DATA: WBC is 8.3, hemoglobin 12.8, hematocrit 39.8, platelet count is 139. Sodium 135, potassium 3.8, chloride is 99, carbon dioxide 27, BUN 26, creatine is 3.84, GFR is 12.9, fasting glucose 205, calcium is 7.9, phosphorus 2.9, albumin 2.3. ASSESSMENT AND PLAN: 1. Acute cerebrovascular accident. MRI was performed. Patient has occipital temporal parietal lobe involvement with possible small hemorrhage. Patient continues to have almost no muscle strength in the upper and lower extremities, except 3-4 out of 5 of the finger studio musician strength. bilateral temporoparietal and occipital lobe with small hemorrhagic issue. Patient continues to perform poorly with physical therapy. Patient has been on aspirin 122 mg by mouth daily. Patient continues to have seizure prophylaxis. I had a lengthy discussion with the cull grader and neurologist. We both feel that patient may be a candidate for COMFORT MEASURES ONLY (MANAGER SECURITY AND SAFETY) currently. Patient suffered from sequelae a significant stroke. Patient also has end-stage renal disease on routine dialysis. Per patient, patient has been suffering significant pain requiring escalation of the pain medications. Currently, patient is shocked and upset about the MANAGER SECURITY AND SAFETY option. I do not believe that the patient is appropriate to make a rational decision at this moment. The case management manager and the social security benefits interviewer has been assisting in contacting the patient's daughter who is the patient's proxy. We will give them some time to process the information. At this moment, the patient will continue to work with physical therapy and occupational therapy. 2. Acute mental status changes secondary to acute stroke and possibly due to narcotic usage/withdrawal. The patient's mentation has been improving. The patient may be closer to baseline currently. 3. Generalized muscle spasm. Pain management has been consulted. After discussion all the specialists, patient is currently on the reduced of muscle relaxant and pain medications. 4. Peripheral vascular disease, on Zocor. 5. Depression, on Celexa. 6. End-stage renal disease, on routine hemodialysis. 7. Hypertension. The patient is on atenolol and losartan. 8. History of seizures. The patient is taking seizure prophylaxis. 9. History of asthma. Currently compensated. Does not require oxygen support. 10. Diabetes, on consistent-carbohydrate diet and on sliding scale. 11. History of coronary artery disease/myocardial infarction ([place]). The patient is on aspirin and a beta jacquie. The patient is on losartan. 12. Deep vein thrombosis (DVT) prophylaxis. The patient is on thromboembolic-deterrent stockings (TEDS) and sequential compression device.
[2016-06-21] MEDS: SIMVASTATIN 20 MG TAB PO SCH (21:41)
[2016-06-21] MEDS: MONTELUKAST 10 MG TAB PO SCH (21:41)
[2016-06-21 22:00] VITALS: BP 136/88
[2016-06-22] MEDS: SODIUM CHLORIDE 0.9% INJ 10 ML SYR IV PRN (00:06)
[2016-06-22 06:00] VITALS: BP 137/77
[2016-06-22 06:39] LABS: BASO % 0.2 % (0.0-1.0); EOS # 0.2 K/mm3 (0.0-0.50); EOS % 2.3 % (0.0-3.0); LARGE UNSTAINED CELL # 0.1 K/mm3 (0.0-0.4); LARGE UNSTAINED CELL % 0.9 % (0.0-4.0); LYMPH # 1.4 K/mm3 (1.5-4.5); LYMPH % 15.1 % (24.0-44.0); MEAN CORPUSCULAR HEMOGLOBIN 26.8 pg (27.0-33.0); MEAN CORPUSCULAR HGB CONC 31.4 g/dl (32.0-36.5); MEAN CORPUSCULAR VOLUME 85.2 fl (80.0-96.0); MONO # 0.4 K/mm3 (0.0-0.8); MONO % 4.7 % (0.0-5.0); NEUTROPHILS # 7.3 K/mm3 (1.8-7.7); NEUTROPHILS % 76.8 % (36.0-66.0); PLATELET COUNT, AUTOMATED 164 k/mm3 (150-450); RED CELL DISTRIBUTION WIDTH 13.8 % (11.5-14.5); WHITE BLOOD COUNT 9.5 K/mm3 (4.0-10.0)
[2016-06-22] MEDS: oxyCODONE 5MG TAB PO PRN (06:41)
[2016-06-22] MEDS: MULTIVITAMINS/MINERALS THERAP 1 TAB PO SCH (06:41)
[2016-06-22] MEDS: ASPIRIN 81 MG CHEW TABLET PO SCH (06:41)
[2016-06-22] MEDS: CitaloPRAM (CeleXA) 20 MG TAB PO SCH (06:42)
[2016-06-22] MEDS: CINACALCET 30 MG TAB (SENSIPAR) PO SCH (06:42)
[2016-06-22] MEDS: LOSARTAN 25 MG TAB PO SCH (06:42)
[2016-06-22] MEDS: CYCLOBENZAPRINE 5MG TABLET PO PRN (06:42)
[2016-06-22 06:43] VITALS: BP 137/77
[2016-06-22] MEDS: DOCUSATE SODIUM 100 MG CAP PO PRN (06:43)
[2016-06-22] MEDS: DIVALPROEX 250MG *ER* TAB PO SCH (06:43)
[2016-06-22] MEDS: PANTOPRAZOLE 40MG TAB (PROTONIX) PO SCH (06:43)
[2016-06-22] MEDS: ATENOLOL 25 MG TAB PO SCH (06:43)
[2016-06-22] MEDS: LIDOCAINE 5% OINT 30 GM TOP SCH ×2 (06:44→20:49)
[2016-06-22] MEDS: SODIUM CHLORIDE 0.9% INJ 10 ML SYR IV SCH ×3 (06:44→20:49)
[2016-06-22] MEDS: HumaLOG INSULIN (NovoLOG) PER UNIT SC SCH ×4 (06:56→20:41)
[2016-06-22 06:58] LABS: ALBUMIN 2.4 GM/DL (3.2-5.2); CALCIUM LEVEL 8.2 MG/DL (8.5-10.1); CREATININE FOR GFR 4.48 MG/DL (0.55-1.02); GLOMERULAR FILTRATION RATE 10.8 (>51); PHOSPHORUS LEVEL 2.9 MG/DL (2.5-4.9); POTASSIUM SERUM 3.8 MEQ/L (3.5-5.1)
[2016-06-22] MEDS: ADVAIR DISKUS 250/50 INH PWD INH SCH ×2 (08:26→21:08)
--- NOTE | 2016-06-22 11:19 | IPN ---
DATE: 06/22/2016 SUBJECTIVE: Patient was seen and examined today in the morning during hemodialysis procedure. She was tolerating the hemodialysis procedure well. No active complaints at this time. REVIEW OF SYSTEMS: Patient denies any fevers, chills, rigors, headache, nausea, vomiting, chest pain, shortness of breath. She does seem depressed and frustrated because of her recent stroke and quadriplegia. The rest of review of system is negative. OBJECTIVE: Vital signs: Temperature is 96.6 degrees Fahrenheit, blood pressure is 137/77, pulse 70, respiratory rate of 18, saturating 99% on room air. Intake and output: There is no urine output recorded. Weight on the bed scale is 76.5 kg. PHYSICAL EXAMINATION: General: Patient is awake, alert, oriented times three, lying in bed, no apparent distress. Head and neck exam: Pupils equally round and reactive to light. Mucous membranes are moist. Neck is supple. There is no jugular venous distention (JVD). Cardiovascular: S1, S2. Regular rate. No murmur, rub or gallop. Respiratory: Chest is clear to auscultation bilaterally. Bilateral equal air entry. No rales or rhonchi. Abdomen: Soft, positive bowel sounds, nontender, no organomegaly. Extremities: No clubbing or cyanosis. Trace edema of bilateral lower extremities. Central nervous system: Patient has quadriplegia with 3/5 power in the bilateral upper extremities and 0/5 in bilateral lower extremities. Psych: Patient is depressed at this time. LAB REVIEW: CBC showed WBC 9.5, hemoglobin 13.7, platelets 164. BMP showed sodium 136, potassium 3.8, chloride 100, bicarbonate 25, BUN 37, creatinine 4.4. Calcium 8.2. CURRENT MEDICATIONS: Patient's medications were all reviewed by me. There is no change in the medications today as compared with yesterday. ASSESSMENT: 55-year-old female with past medical history of end stage renal disease on hemodialysis, recent hospitalization has been complicated by bilateral cerebrovascular accident (CVA) with quadriplegia. Nephrology service is following the patient for management of end stage renal disease. PLAN: 1. End stage renal disease. Patient is being dialyzed according to her Tuesday, schedule. Ultra filtration goal will be around 2.5 liters as tolerated by her blood pressure. 2. Hypertension. Blood pressure is well controlled at this time. Continue current dose of Losartan and atenolol. 3. Recent cerebrovascular accident (CVA) with quadriplegia. Patient is actively discussing the goals of care with the primary medical team and her family members. Some of her family members are here today. She is thinking about making herself comfort measures.
[2016-06-22] MEDS ORDERED: oxyCODONE 5MG TAB PO ONE (11:30)
[2016-06-22] MEDS ORDERED: HEPARIN 1,000 UNITS/ML 10ML VIAL (FOR RADIOLOGY& DIALYSIS ONLY) IV ONE (11:45)
[2016-06-22] MEDS ORDERED: LIDOCAINE 1% SDV 5 ML VIAL SQ ONE (11:45)
[2016-06-22] MEDS ORDERED: CYCLOBENZAPRINE 5MG TABLET PO ONE (12:00)
--- NOTE | 2016-06-22 12:23 | IPN ---
DATE: 06/22/2016 The patient is seen and examined at dialysis center. She complains of generalized pain anywhere, requesting for pain medications. No nausea, vomiting , abdominal pain, chest pain, pressure, tightness, palpitations. Neurologically, awake, alert, and oriented to person and place. Temperature is 96.6, pulse 70, respiratory rate 18, blood pressure 137/77 on 2 liters nasal cannula at 99%. GENERAL: The patient is edentulous. No respiratory distress. Able to speak in full sentences. LUNGS: Diminished. Clear to auscultation. No wheezing, rales or rhonchi. HEART: S1, S2. Sinus rhythm. ABDOMEN: Soft, nontender, nondistended. Normoactive bowel sounds. EXTREMITIES: Trace edema. NEUROLOGIC: 3/5 power in bilateral upper extremities, 0/5 bilateral lower extremities. LABORATORY DATA: Reviewed. ASSESSMENT AND PLAN: This is a 55-year-old female with history of end stage renal disease on maintenance hemodialysis on Tuesday, , Tuesday, coronary artery disease, hypertension, diabetes, hypothyroidism, hyperlipidemia, toe amputations, left AV fistula, section, cholecystectomy, presented with hip pain after being released from rehabilitation in [place]. She was found to have acute on chronic renal failure, obtundation, encephalopathy secondary to opiates and Lyrica. At that point, she was reversed with Narcan with some improvement but still with persistent obtundation. Evaluation included CT of the head showed possible watershed infarct. MRI of the brain confirms bilateral frontal parietal cerebral CVA in the watershed area. The patient was treated with continued aspirin. Dr. Quispe and Dr. Cespedes have signed off. She continues to perform poorly with physical therapy (PT) and both the neurologist and electronics assembler and tester agree for comfort measures only. The patient has suffered significantly from sequelae of her stroke. Family is deciding to make her comfort measures only; however, they will not be present until Tuesday. They are requesting for dialysis to be continued until Tuesday and for the patient to be given pain medications to alleviate her suffering. At this time, the patient's daughter is the healthcare proxy, along with the two children. Agree with comfort measures only to be instituted on Tuesday when they arrive, to continue hemodialysis for now. 2. Acute mental status change secondary to acute stroke, possible narcotic usage and withdrawal. Mentation is improved. Close to her baseline. 3. Generalized muscle spasm. As needed Flexeril. 4. Peripheral vascular disease. On Zocor. 5. Depression. On Celexa. 6. End stage renal disease. On maintenance hemodialysis. 7. Hypertension. Atenolol and losartan. 8. Seizure history. Currently on seizure prophylaxis. 9. History of asthma. Compensated. 10. Type 2 diabetes. Consistent carbohydrate diet. 11. History of coronary artery disease and myocardial infarction. Aspirin, beta jacquie, and losartan. 12. Acute CVA. On aspirin with 0 out of 5 motor function in bilateral lower extremities due to a watershed infarct. On chronic aspirin. Poor prognosis. DISPOSITION: The patient is appropriate for halfway with hospice versus hospice house. At this time, the family has decided to continue with everything until they arrive on Tuesday. Continue with maintenance hemodialysis, pain medications. Addendum: per HCP and pt's son, continue with patient's wishes. Both sons will arrive by Tuesday. One son's request is to continue hemodialysis until he arrives and to continue all mgt. However, per the patient and patient's health care proxy, patient's daughter, patient is ready for comfort measures only and for hemodialysis to be discontinued after today's session. Per patient's wishes, with HCP at the bedside, we will proceed with DNR,DNR CASEWORKER PROTECTIVE SERVICES. I have encouraged patient's daughter to let her brothers know of the mother's decision to be CASEWORKER PROTECTIVE SERVICES today and discontinuation of hemodialysis. We are abiding by the patient and health care proxy's decision. code status: DO NOT RESUSCITATE DO NOT INTUBATE COMFORT MEASURE ONLY. MTDD
[2016-06-22] MEDS: MOM 30ML SUSPENSION UDC PO PRN (13:20)
[2016-06-22 14:00] VITALS: BP 146/90
[2016-06-22] MEDS ORDERED: LORazepam 0.5 MG TAB PO PRN (15:00)
[2016-06-22] MEDS ORDERED: ATROPINE SULFATE 1% OP SOLN 2 ML BTL SL PRN ×2 (15:00→15:30)
[2016-06-22] MEDS: MORPHINE 10MG/0.5ML ORAL CONCENTRATE SOLUTION U/D SL PRN ×4 (15:46→22:56)
--- NOTE | 2016-06-22 16:11 | IPN ---
DATE OF SERVICE: 06/22/2016 Per the patient, and the patient's healthcare proxy, Tamie Carter, , patient has decided on continuing with DO NOT RESUSCITATE/DO NOT INTUBATE, no CARDIOPULMONARY RESUSCITATION, no mechanical intubation and comfort measures only. I have spoken with Dr. Castro about discontinuation of patient's maintenance hemodialysis. Patient is agreeable to moving forward with comfort measures only, DO NOT RESUSCITATE/DO NOT INTUBATE. Patient's daughter has spoken with her brothers, who will attempt to come in the next few days; however, in agreement with her mother, we will proceed with comfort measures only. Healthcare proxy is Erna Dobbs, phone number [facility]
[2016-06-23] MEDS: MORPHINE 10MG/0.5ML ORAL CONCENTRATE SOLUTION U/D SL PRN ×3 (03:56→13:26)
[2016-06-23] MEDS: SODIUM CHLORIDE 0.9% INJ 10 ML SYR IV SCH ×3 (05:42→20:50)
[2016-06-23 06:00] VITALS: BP 110/60
[2016-06-23] MEDS: ADVAIR DISKUS 250/50 INH PWD INH SCH ×2 (07:56→19:51)
[2016-06-23] MEDS: HumaLOG INSULIN (NovoLOG) PER UNIT SC SCH ×4 (08:44→20:42)
[2016-06-23] MEDS: ASPIRIN 81 MG CHEW TABLET PO SCH (10:23)
[2016-06-23] MEDS: DIVALPROEX 250MG *ER* TAB PO SCH (10:24)
[2016-06-23] MEDS: LIDOCAINE 5% OINT 30 GM TOP SCH ×2 (10:24→20:50)
--- NOTE | 2016-06-23 10:29 | IPN ---
DATE: The patient seen and examined at the bedside. The chart has been reviewed. Yesterday, the patient was made comfort measures only by her own decision and carried out by the health care proxy, her daughter. No issues per nursing. The patient has been requiring more and more pain medications and appears to be much more lethargic. Unable to eat her Kinyarwanda toast this morning due to increase in lethargy. She is still arousable and responds to her name. Able to say one to two words, but goes back to sleep quickly. Temperature 95.3, pulse 72, respiratory rate 19, blood pressure 110/60 and 97% on room air. Generally, patient is much more lethargic, but arousable. Lungs with diminished breath sounds, clear to auscultation. Heart: S1, S2. Sinus rhythm. Abdomen is soft, nontender, nondistended. Extremities: Trace lower extremity edema. Quadriplegia. Patient's motor function could not be assessed as she is lethargic and not cooperative with the examination. LABORATORY DATA: 06/22/2016 CBC and metabolic panel have been reviewed. ASSESSMENT AND PLAN: This is a 55-year-old female, DO NOT RESUSCITATE, DO NOT INTUBATE, comfort measures only, with history of end stage renal disease on maintenance hemodialysis on Tuesday, and Tuesday, coronary artery disease (CAD), hypertension, diabetes, hypothyroidism, hyperlipidemia, toe amputations, left AV fistula, , and cholecystectomy who presented to [facility] with complaints of left hip pain after being released from rehabilitation in [place] and discharged home. The patient at home had a fall and complained of hip pain. She was brought into the hospital for potential placement as she is unable to care for herself at home. During her admission, the patient was found to be much more lethargic. Her opiates and Lyrica were discontinued. She was given Narcan. The patient continued to be obtunded. At that time, she was also found to have acute on chronic renal failure and nephrology was consulted for maintenance hemodialysis. Despite Narcan, the patient had persistent obtundation. Evaluation included CT of the head which showed watershed infarct. MRI confirms acute bilateral frontal parietal CVA in the watershed area. The patient was continued on aspirin despite findings of small hemorrhagic bleed. Repeat CT shows no worsening. Dr. Quispe and Dr. Cespedes, neurologists, have managed the patient during her hospital stay and have since signed off. The patient's stroke had worsened to the point of quadriplegia with no motor function bilateral lower extremities. She has suffered significantly from the sequelae of her CVA and was felt to be appropriate for comfort measures. The patient requested to be made DO NOT RESUSCITATE, DO NOT INTUBATE, comfort measures only and to have medications for her pain and suffering. The patient's health care proxy, her daughter, as well as, the patient have decided to move forward with comfort measures only. Erna Dobbs, health care proxy, phone number, . [facility]
[2016-06-23] MEDS: MOM 30ML SUSPENSION UDC PO PRN (10:41)
--- NOTE | 2016-06-23 11:15 | IPN ---
DATE OF SERVICE: 06/23/2016 SUBJECTIVE: The patient was seen and examined at the bedside today in the morning. She is very drowsy. She is unable to communicate. Last 24-hour events were noted. The patient was made comfort measures only by the primary team after a discussion with the patient and her family. REVIEW OF SYSTEMS: I was unable to do the review of systems. OBJECTIVE: Vital signs: Temperature is 95.3 degrees Fahrenheit, blood pressure is 110/60, pulse is 72, respiratory rate of 19, saturating 97% on room air. Intake and output: Urine output is not recorded well. The patient got hemodialysis done yesterday. Ultrafiltration was 2 liters. Weight on the bed scale is 75.6 kg. PHYSICAL EXAMINATION: General: The patient is awake, but she is not able to communicate. She wakes up to vocal commands only. Otherwise, she is very drowsy. Head and neck examination: Mucous membranes are moist. Neck is supple. There is no jugular venous distention (JVD). Cardiovascular: S1, S2. Regular rate. No murmur, rub, and gallop. Respiratory: Chest is clear to auscultation bilaterally. Bilateral equal air entry. Abdomen: Soft, positive bowel sounds, nontender, no organomegaly. Extremities: No clubbing or cyanosis. Trace edema on the bilateral lower extremities. Central nervous system (BUSINESS EXCELLENCE MANAGER): The patient has quadriplegia. Power is 3/5 only in the bilateral upper extremities. LABORATORY REVIEW: There are no laboratories available for today. CURRENT MEDICATIONS: The patient's medications were all reviewed by me. Most of her oral medications have been stopped. She is just on pain medications at this time. ASSESSMENT: A 55-year-old female with past medical history of end-stage renal disease on hemodialysis with a recent cerebrovascular accident (CVA) and quadriplegia. Nephrology service following the patient for management of end-stage renal disease. PLAN: 1. End-stage renal disease. The patient was dialyzed according to her regular schedule yesterday. After a discussion with the patient and the family member, she was made comfort measures. So, the patient would not get any more dialysis sessions at this time. 2. Goals of care. The patient is comfort measures only at this time. She is DO NOT RESUSCITATE (DNR). She is being given pain medicine, and nephrology service would sign off at this moment. I have informed the dialysis center, as well, as outpatient, the patient would no longer get hemodialysis. Plan of care was discussed with the hospitalist team, as well.
[2016-06-24] MEDS: SODIUM CHLORIDE 0.9% INJ 10 ML SYR IV SCH ×3 (05:59→20:36)
[2016-06-24] MEDS: MORPHINE 10MG/0.5ML ORAL CONCENTRATE SOLUTION U/D SL PRN ×2 (06:28→16:35)
[2016-06-24] MEDS: HumaLOG INSULIN (NovoLOG) PER UNIT SC SCH ×4 (07:30→20:31)
[2016-06-24] MEDS: DIVALPROEX 250MG *ER* TAB PO SCH (08:44)
[2016-06-24] MEDS: MOM 30ML SUSPENSION UDC PO PRN ×2 (08:44→16:34)
[2016-06-24] MEDS: DOCUSATE SODIUM 100 MG CAP PO PRN (08:44)
[2016-06-24] MEDS: LIDOCAINE 5% OINT 30 GM TOP SCH ×2 (08:45→20:37)
[2016-06-24] MEDS: ASPIRIN 81 MG CHEW TABLET PO SCH (08:45)
[2016-06-24] MEDS: ADVAIR DISKUS 250/50 INH PWD INH SCH ×2 (08:56→20:09)
[2016-06-24] MEDS ORDERED: CYCL5TA PO (10:06)
[2016-06-24] MEDS ORDERED: ATRO1OPD PO (10:06)
[2016-06-24] MEDS ORDERED: LORA1TAB12 PO (10:06)
[2016-06-24] MEDS ORDERED: MORP1SOL PO (10:06)
[2016-06-24] MEDS: BACLOFEN 5MG PER 1/2 TABLET PO SCH ×3 (10:28→20:36)
--- NOTE | 2016-06-24 10:34 | IPN ---
DATE: 06/24/2016 The patient seen and examined at the bedside. The chart has been reviewed. Vital signs: Temperature 95.3, respiratory rate 18, blood pressure 110/60. GENERAL: Awake, alert and oriented. Lethargic but arousable. Responds to questions. Asking for more pain medications. LUNGS: Diminished breath sounds, clear. HEART: S1, S2. Sinus. ABDOMEN: Soft, nontender, nondistended. Positive bowel sounds. EXTREMITIES: Trace edema. Quadriplegia. Motor function could not be assessed as the patient is lethargic and not cooperative with the examination. ASSESSMENT AND PLAN: This is a 55-year-old female with a history of peripheral vascular disease, DO NOT RESUSCITATE, DO NOT INTUBATE, comfort measures only, end stage renal disease on maintenance hemodialysis on Tuesday, and Tuesday, coronary artery disease (CAD), hypertension, diabetes, hypothyroidism, hyperlipidemia, toe amputations, left AV fistula, section, and cholecystectomy who presented to [facility] with complaints of left hip pain after a fall at home. She was recently discharged from rehabilitation in [place]. Unable to care for herself and was brought in for placement. When she was admitted, the patient had no neurological complaints and no neurological deficits. She was much more lethargic than normal and her pain medications were discontinued. She was reversed with Narcan. The patient was found to have acute on chronic renal failure. Nephrology was consulted for maintenance dialysis. Despite Narcan, she continued to have significant lethargy and inability to cooperate with neurologic examination. CT of the head showed watershed infarct. MRI confirmed acute bilateral frontoparietal CVA in the watershed area with small hemorrhage. She was continued on aspirin. Repeat CT showed no worsening bleed. Dr. Quispe and Dr. Cespedes, neurologists, have managed the patient during her hospital stay and have since signed off since her stroke has worsened to the point of quadriplegia, no motor function in bilateral lower extremities. The patient was felt to be appropriate for comfort measures only. She, as well as her healthcare proxy, her daughter, have decided on DO NOT RESUSCITATE, DO NOT INTUBATE, comfort measures only and to have medications for her pain and suffering. Her daughter, Erna Dobbs, is her healthcare proxy, phone number, , was present during her medical decision making and agrees with her mother's decision. The rest of her family, her two sons, were made aware of the mother's decision for comfort measures only. She is currently awaiting placement and may be discharged at any time. AMIRA
[2016-06-25] MEDS: SODIUM CHLORIDE 0.9% INJ 10 ML SYR IV SCH (04:56)
[2016-06-25] MEDS: MOM 30ML SUSPENSION UDC PO PRN (08:18)
[2016-06-25] MEDS: HumaLOG INSULIN (NovoLOG) PER UNIT SC SCH (08:18)
[2016-06-25] MEDS: ASPIRIN 81 MG CHEW TABLET PO SCH ×2 (08:18→08:59)
[2016-06-25] MEDS: DIVALPROEX 250MG *ER* TAB PO SCH ×2 (08:18→08:59)
[2016-06-25] MEDS: BACLOFEN 5MG PER 1/2 TABLET PO SCH (08:18)
[2016-06-25] MEDS ORDERED: FLEET ENEMA PR PRN (09:00)
[2016-06-25] MEDS ORDERED: FLEET ENEMA PR ONE (09:00)
[2016-06-25] MEDS: LIDOCAINE 5% OINT 30 GM TOP SCH (10:10)
--- NOTE | 2016-06-25 17:12 | DSES ---
DATE OF ADMISSION: 06/11/2016 DATE OF DISCHARGE: 06/25/2016 Patient is comfort measures only, DO NOT RESUSCITATE, DO NOT INTUBATE. CONSULTANT[facility]URING [facility] ADMISSION: Dr. Bill Quispe, neurologist, Dr. Marilee Castro, build and release manager. NURSE PRACTITIONER: Pauline Ruiz PRIMARY DISCHARGE DIAGNOSES: 1. Acute bilateral frontoparietal cerebrovascular accident and bilateral temporoparietal lobe with small hemorrhagic component in the watershed distribution. 2. Acute encephalopathy secondary to acute stroke and possibly narcotic withdrawal. 3. Generalized muscle spasm. 4. End-stage renal disease, on maintenance hemodialysis. 5. Peripheral vascular disease. 6. Depression. 7. Hypertension. 8. Electrolyte abnormalities. 9. Hyperparathyroidism. 10. Hyperphosphatemia. 11. History of seizure disorder. DISCHARGE MEDICATIONS: - Roxanol 0.25-1 mL by mouth every 2 as needed for dyspnea or pain - Ativan 0.5 mg every 4 as needed for anxiety or agitation - Flexeril 5 three times a day - atropine one to two drops as needed every 2 hours for terminal secretions. HOSPITAL COURSE: This is a 55-year-old female with a history of end-stage renal disease on maintenance hemodialysis Tuesday, , Tuesday, hypertension, diabetes, hypothyroidism, hyperlipidemia, coronary artery disease (CAD), history of seizure disorder, peripheral vascular disease, asthma, anxiety, presented to the hospital complaining of left hip pain after being discharged to home from rehabilitation in [place]. Patient was admitted for a social admission due to inability to ambulate. She had no neurological complaints on admission. Was awake, alert, oriented with no focal deficits. Over the next 24 hours patient developed increasing obtundation. She was found to be lethargic, briefly opened her eyes, and went back to sleep. She was reversed with Narcan, Lyrica, and opiates were discontinued. Despite these interventions, patient continued to not follow commands adequately. CT of the head showed acute CVA, watershed area, bilateral frontoparietal region. Neurologist, Dr. Quispe, was consulted for help in management. The patient was kept on aspirin. MRI confirmed bilateral acute frontoparietal CVAs. Patient worsened to have bilateral lower extremity quadriplegia. She was maintained on hemodialysis. Continued to complain of severe pain. Echocardiogram to evaluate patient's CVA showed ejection fraction (EF) of 60-65%, grade 1 diastolic dysfunction. No mitral insufficiency. PA pressure likely normal. Left ventricular (LV) systolic function normal. EEG performed, read by Dr. Mayito Cespedes, showed abnormal due to generalized slowing disorganization, which could be due to metabolic toxic medication-induced or multifocal structural abnormalities. Pain management was consulted. Recommended limited oxycodone as needed, no more than once daily. Due to acute CVA and renal dysfunction, no further medications were recommended. Patient continued to deteriorate. Unable to ambulate. Patient decided on DO NOT RESUSCITATE, DO NOT INTUBATE due to guarded prognosis with no significant improvement from the CVA. Patient's family was made aware, and both healthcare proxy and the patient decided on comfort measures only, DO NOT RESUSCITATE, DO NOT INTUBATE due to the severe sequelae of her stroke. At this time, patient requested more pain medications. All of her home medications were discontinued. She was placed on hospice medications, Ativan, atropine. She requested Baclofen due to multiple spasms and episodes of constipation, treated with Fleet's enema and milk of magnesia. Hemodialysis was discontinued due to comfort measures only status and patient's request. She is transferred comfort measures only, DO NOT RESUSCITATE, DO NOT INTUBATE, on hospice medications. [facility]
== END 2016-06-25 12:05 | DRG 91 ==
LOC: M ED 09:40 → M PCU 16:46 → M ED INP 17:48 → M MS5PR 18:42 → M PCU 06-13 00:45 → M MSPAV 06-19 13:12
PROVIDERS: ADMIT Internal Medicine; ATTEND General Practice
DX: R26.81 Unsteadiness on feet (principal); N18.6 End stage renal disease; I61.9 Nontraumatic intracerebral hemorrhage, unspecified; G93.6 Cerebral edema; G93.41 Metabolic encephalopathy; G82.50 Quadriplegia, unspecified; I12.0 Hypertensive chronic kidney disease with stage 5 chronic kidney disease or end stage renal disease; N25.81 Secondary hyperparathyroidism of renal origin; E46 Unspecified protein-calorie malnutrition; N17.9 Acute kidney failure, unspecified; Z99.2 Dependence on renal dialysis; I73.9 Peripheral vascular disease, unspecified; Z79.899 Other long term (current) drug therapy; Z79.82 Long term (current) use of aspirin; Z79.4 Long term (current) use of insulin; Z88.6 Allergy status to analgesic agent; Z66 Do not resuscitate; Z88.1 Allergy status to other antibiotic agents; Z88.0 Allergy status to penicillin; Z88.5 Allergy status to narcotic agent; Z91.010 Allergy to peanuts; F17.210 Nicotine dependence, cigarettes, uncomplicated; G40.909 Epilepsy, unspecified, not intractable, without status epilepticus; E83.39 Other disorders of phosphorus metabolism; M62.838 Other muscle spasm; F32.9 Major depressive disorder, single episode, unspecified; E03.9 Hypothyroidism, unspecified; E78.5 Hyperlipidemia, unspecified; I25.10 Atherosclerotic heart disease of native coronary artery without angina pectoris; J45.909 Unspecified asthma, uncomplicated; F41.9 Anxiety disorder, unspecified; Z51.5 Encounter for palliative care; E87.6 Hypokalemia; M25.552 Pain in left hip; E11.9 Type 2 diabetes mellitus without complications; D63.1 Anemia in chronic kidney disease; Z74.2 Need for assistance at home and no other household member able to render care